=== PATIENT | male | born 1945 | race Caucasian/White ===

== ENCOUNTER 2017-09-16 12:41 | Inpatient (IN) | payer MEDICAID ==
--- NOTE | 2017-09-16 14:28 | ED Physician Chart ---
ED Chief Complaint/HPI - Patient Information Date Seen:: 09/16/17 Time Seen:: 13:00 Chief Complaint:: Dizziness History of Present Illness:: onset x 3 days of intermittent vertigo,, N/V/D, hematochezia, and melena; no report of trauma, LOC, H/As, S/T, neck pain, C/P, SOB, Abd. Pain, A/C, fever, chills, hematemesis, or urinary s/s Allergies:: Allergies Allergy/AdvReac Type Severity Reaction Status Date / Time Penicillins Allergy Verified 09/16/17 13:04 Vitals:: Vital Signs - 8 hr 09/16/17 13:04 Temp 98.2 F HR 70 RR 17 BP 99/60 O2 Sat % 96 Historian:: Patient, EMS Review:: Nurse's Note Reviewed, Old Chart Reviewed, EMS run form Reviewed ED Review of Systems - Review of Systems General/Constitutional: No fever, No chills, No weight loss, No weakness, No diaphoresis, No edema, No loss of appetite Skin: No skin lesions, No rash, No bruising Head: No headache, No light-headedness Eyes: No loss of vision, No pain, No diplopia ENT: No earache, No nasal drainage, No sore throat, No tinnitus Neck: No neck pain, No swelling, No thyromegaly, No stiffness, No mass noted Cardio Vascular: No chest pain, No palpitations, No PND, No orthopnea, No edema Pulmonary: No SOB, No cough, No sputum, No wheezing GI: No nausea, No vomiting, No diarrhea, No pain, No melena, No hematochezia, No constipation, No hematemesis G/U: No dysuria, No frequency, No hematuria, No nacturia Musculoskeletal: No bone or joint pain, No back pain, No muscle pain Endocrine: No polyuria, No polydipsia Psychiatric: Prior psych history, Depression, Anxiety, No suicidal ideation, No homicidal ideation, No auditory hallucination, No visual hallucination Hematopoietic: No bruising, No lymphadenopathy Allergic/Immuno: No urticaria, No angioedema Neurological: Syncope, No focal symptoms, Weakness, No paresthesia, Headache, Seizure, Dizziness, Confusion, Vertigo ED Past Medical History - Past Medical History Obtainable: Yes Past Medical History: HTN, DM, CAD, CHF, CVA/TIA, Dyslipidemia, PUD/GERD, ESRD, Seizures, Dementia, Other (Encephalopathy) Family History: Diabetes Melitus, HTN Social History: Non Smoker, No Alcohol, No Drug Use, Single, Care Facility Surgical History: None Psychiatricy History: Depression, Dementia Medication: Reviewed ED Physical Exam - Physical Examination General/Constitutional: Awake, Well-developed, well-nourished, Alert, No distress, GCS 15, Non-toxic appearing, Ambulatory Head: Atraumatic Eyes: Lids, conjuctiva normal, PERRL, EOMI Skin: Nl inspection, No rash, No skin lesions, No ecchymosis, Well hydrated, No lymphadenopathy ENMT: External ears, nose nl, TM canals nl, Nasal exam nl, Lips, teeth, gums nl , Oropharynx nl, Tonsils nl Neck: Nontender, Full ROM w/o pain, No JVD, No nuchal rigidity, No bruit, No mass, No stridor Respiratory: Nl effort/Exclusion, Clear to Auscultation, No Wheeze/Rhonchi/Rales Cardio Vascular: RRR, No murmur, gallop, rubs, NL S1 S2, Carotid/Femoral/Distal pulses equal bilaterally GI: No tenderness/rebounding/guarding, No organomegaly, No hernia, Normal BS's, Nondistended, No mass/bruits, No McBurney tenderness Other GI comments:: Stool is + OB : No CVA tenderness Extremities: No tenderness or effusion, Full ROM, normal strength in all extremities, No edema, Normal digits & nails Neuro/Psych: DTR's symmetric, Normal sensory exam, Normal motor strength, Judgement/insight normal, Mood normal, Normal gait, No focal deficits Other Neuro/Psych comments:: Disoriented and Confused Misc: Normal back, No paraspinal tenderness ED Labs/Radiology/EKG Results - EKG Interpretations EKG Time:: 14:47 Rate & Rhythm: 58; SB Comments:: T-Wave Inversions in V4, V5, and V6 ED Septic Shock - . Is Septic Shock (SBP<90, OR Lactate>4 mmol\L) present?: No - <6hrs of presentation: Vital Signs: Vital Signs - 8 hr 09/16/ 13:04 Temp 98.2 F HR 70 RR 17 BP 99/60 O2 Sat % 96 ED Reassessment (Disposition) - Reassessment Reassessment Condition:: Improved - Diagnosis Diagnosis:: Dx: Myocardial Ischemia; Cardiac Arrythmias; Sinus Bradycardia; Dizziness; Syncope; Vertigo; Weakness; GI Bleed - Aftercare/Follow up Instructions Aftercare/Follow-Up Instructions:: Counseled pt regarding lab results/diagnosis & need follow up, Counseled pt & family regarding lab results/diagnosis & need follow up - Patient Disposition Discharge/Transfer:: Acute Care w/in this hosp Accepting Physician:: Dr. Avendano Time Called:: 1430 Time Responded:: 14:30 Admitted to:: Telemetry Spoke to:: Dr. Avendano Admitting Medical Physician:: Dr. Avendano Condition at Disposition:: Stable, Improved
[2017-09-16] MEDS ORDERED: Sodium Chloride 0.9% 1,000 ML IV ONE (14:31)
--- NOTE | 2017-09-16 14:52 | Diagnostic Imaging Report ---
CHEST X-RAY: AP view INDICATION: pain COMPARISON: None FINDINGS: Mild chronic lung changes are seen with left basal subsegmental atelectasis versus scarring. There is no focal consolidation or pleural effusions The heart is normal in size. There is mild tortuosity of the aorta. Degenerative changes of the spine are noted. IMPRESSION: Left basal subsegmental atelectasis versus scarring. No focal consolidation identified. Mildly tortuous aorta.
[2017-09-16 15:02] LABS: % BASOPHILS 0.7 % (0.0-2.0); % EOSINOPHILS 1.1 % (0.0-5.0); % LYMPHOCYTES 17.9 % (20.0-50.0); % MONOCYTES 6.4 % (2.0-10.0); % NEUTROPHILS 73.9 % (40.0-80.0); BASOPHILE ABSOLUTE 0.1 Th/cumm (0-0.2); EOSINOPHILE ABSOLUTE 0.1 Th/cmm (0.1-0.4); HEMATOCRIT 35.9 % (41.0-60); HEMOGLOBIN 12.2 gm/dL (12-16); LYMPHOCYTE ABSOLUTE 1.3 Th/cmm (1.5-3.0); MEAN CELL VOLUME 89.9 fl (80-99); MEAN CORPUSCULAR HEMOGLOBIN 30.4 pg (27.0-31.0); MEAN CORPUSCULAR HGB CONC 33.9 pg (28.0-36.0); MEAN PLATELET VOLUME 7.5 fl; MONOCYTE ABSOLUTE 0.5 Th/cmm (0.3-1.0); NEUTROPHILE ABSOLUTE 5.2 Th/cmm (1.8-8.0); PLATELET COUNT 156 Th/cmm (150-400); RED BLOOD COUNT 3.99 Mil/cmm (3.80-5.80); WHITE BLOOD COUNT 7.2 Th/cmm (4.8-10.8)
[2017-09-16 15:09] LABS: INR 1.12 (0.5-1.4); PROTHROMBIN TIME (TEST) 11.7 SECONDS (9.5-11.5)
[2017-09-16 15:18] LABS: ALB/GLOB RATIO 1.4 (1.0-1.8); ALBUMIN 3.6 gm/dL (4.2-5.5); ALKALINE PHOSPHATASE 53 U/L (34-104); ANION GAP 7.6 (7.0-16.0); BILIRUBIN,TOTAL 0.5 mg/dL (0.3-1.0); BUN - UREA NITROGEN 24 mg/dL (7-25); CALCIUM SERUM 8.9 mg/dL (8.6-10.3); CARBON DIOXIDE 29.3 mEq/L (21.0-31.0); CHLORIDE 103 mEq/L (98-107); CHOLESTEROL 107 mg/dL (<200); CREATININE - SERUM 0.9 mg/dL (0.7-1.3); CREATININE KINASE 31 U/L (30-223); GFR AFRICAN-AMERICAN > 60.0 ml/min (>90); GFR NON AFRICAN-AMERICAN > 60.0 ml/min; GLUCOSE 96 mg/dL (70-105); HDL -HIGH DENSITY LIPOPROTEIN 29 mg/dL (23-92); POTASSIUM SERUM 3.9 mEq/L (3.5-5.1); SGOT 13 U/L (13-39); SGPT/ALT 10 U/L (7-52); SODIUM SERUM 136 mEq/L (136-145); TOTAL PROTEIN,SERUM 6.2 gm/dL (6.0-8.3); TRIGLYCERIDES 99 mg/dL (<150)
[2017-09-16 15:24] LABS: AMYLASE SERUM 78 U/L (29-103); LIPASE 53 U/L (11-82)
[2017-09-16 21:37] VITALS: BP 129/64
[2017-09-16] MEDS: Sodium Chloride 0.9% 1,000 ML IV SCH (23:00)
[2017-09-17] MEDS: Sodium Chloride 0.9% 1,000 ML IV SCH (06:17)
[2017-09-17 07:23] LABS: % BASOPHILS 0.1 % (0.0-2.0); % EOSINOPHILS 2.3 % (0.0-5.0); % LYMPHOCYTES 22.5 % (20.0-50.0); % MONOCYTES 6.6 % (2.0-10.0); % NEUTROPHILS 68.5 % (40.0-80.0); EOSINOPHILE ABSOLUTE 0.1 Th/cmm (0.1-0.4); HEMOGLOBIN 10.1 gm/dL (12-16); LYMPHOCYTE ABSOLUTE 1.3 Th/cmm (1.5-3.0); MEAN CORPUSCULAR HEMOGLOBIN 30.7 pg (27.0-31.0); MEAN CORPUSCULAR HGB CONC 34.5 pg (28.0-36.0); MEAN PLATELET VOLUME 8.2 fl; MONOCYTE ABSOLUTE 0.4 Th/cmm (0.3-1.0); PLATELET COUNT 144 Th/cmm (150-400); RED BLOOD COUNT 3.27 Mil/cmm (3.80-5.80); RED CELL DISTRIBUTION WIDTH 12.8 % (11.5-20.0); WHITE BLOOD COUNT 5.8 Th/cmm (4.8-10.8)
[2017-09-17 07:29] LABS: HEMATOCRIT 29.1 % (41.0-60)
[2017-09-17 07:32] LABS: ANION GAP 8.4 (7.0-16.0); BUN - UREA NITROGEN 20 mg/dL (7-25); CALCIUM SERUM 8.5 mg/dL (8.6-10.3); CARBON DIOXIDE 25.4 mEq/L (21.0-31.0); CHLORIDE 111 mEq/L (98-107); CHOLESTEROL 94 mg/dL (<200); CREATININE - SERUM 0.7 mg/dL (0.7-1.3); GFR AFRICAN-AMERICAN > 60.0 ml/min (>90); GFR NON AFRICAN-AMERICAN > 60.0 ml/min; GLUCOSE 82 mg/dL (70-105); HDL -HIGH DENSITY LIPOPROTEIN 23 mg/dL (23-92); POTASSIUM SERUM 3.8 mEq/L (3.5-5.1); SODIUM SERUM 141 mEq/L (136-145); TRIGLYCERIDES 112 mg/dL (<150)
[2017-09-17] MEDS: D5-0.9%NS 1,000 ML IV SCH (09:50)
[2017-09-17] MEDS ORDERED: Diatrizoate Meglumine/Diatri 30 mL Sol PO ONE (12:14)
[2017-09-17 16:18] LABS: % BASOPHILS 0.4 % (0.0-2.0); % EOSINOPHILS 1.6 % (0.0-5.0); % LYMPHOCYTES 20.4 % (20.0-50.0); % MONOCYTES 8.6 % (2.0-10.0); EOSINOPHILE ABSOLUTE 0.1 Th/cmm (0.1-0.4); HEMATOCRIT 28.2 % (41.0-60); HEMOGLOBIN 9.4 gm/dL (12-16); LYMPHOCYTE ABSOLUTE 1.1 Th/cmm (1.5-3.0); MEAN CELL VOLUME 90.6 fl (80-99); MEAN CORPUSCULAR HEMOGLOBIN 30.3 pg (27.0-31.0); MEAN CORPUSCULAR HGB CONC 33.4 pg (28.0-36.0); MEAN PLATELET VOLUME 7.4 fl; MONOCYTE ABSOLUTE 0.5 Th/cmm (0.3-1.0); NEUTROPHILE ABSOLUTE 3.9 Th/cmm (1.8-8.0); PLATELET COUNT 144 Th/cmm (150-400); RED BLOOD COUNT 3.11 Mil/cmm (3.80-5.80); RED CELL DISTRIBUTION WIDTH 12.7 % (11.5-20.0); WHITE BLOOD COUNT 5.6 Th/cmm (4.8-10.8)
[2017-09-17] MEDS ORDERED: Maalox 30 mL Cup PO PRN (16:43)
[2017-09-17] MEDS ORDERED: Fleet Enema 135 mL RC PRN (16:43)
[2017-09-17] MEDS ORDERED: Albuterol/Ipratropium Neb 3 ML AERS HHN PRN (16:43)
[2017-09-17] MEDS: Magnesium Hydroxide (MOM) 30 mL UDC PO SCH (17:10)
[2017-09-17] MEDS ORDERED: Non-Formulary Item 1 EA (Melatonin [Melatonin] 6 MG) PO SCH (21:00)
[2017-09-18 00:58] LABS: URINE MICROSCOPIC INDICATED? YES; URINE SOURCE CLEAN C
[2017-09-18 01:00] LABS: URINE BILIRUBIN NEGATIVE (NEGATIVE); URINE BLOOD NEGATIVE (NEGATIVE); URINE CLARITY CLEAR (CLEAR); URINE COLOR YELLOW; URINE GLUCOSE (UA) NEGATIVE (NEGATIVE); URINE KETONE NEGATIVE (NEGATIVE); URINE LEUKOCYTE ESTERASE NEGATIVE (NEGATIVE); URINE NITRATE NEGATIVE (NEGATIVE); URINE PROTEIN NEGATIVE (NEGATIVE); URINE UROBILINOGEN 0.2 E.U./dL (0.2 - 1.0)
[2017-09-18 01:01] LABS: URINE BACTERIA FEW /hpf (NONE SEEN); URINE EPITHELIAL CELLS NONE SEEN /lpf (FEW); URINE RBC 0-2 /hpf (0-5); URINE WBC 0-2 /hpf (0-5)
--- NOTE | 2017-09-18 02:13 | Consultation ---
DATE OF CONSULTATION: 09/17/2017 INPATIENT GASTROINTESTINAL CONSULTATION CONSULTING PHYSICIAN: Dr. Avendano. REASON FOR CONSULTATION: Hematochezia. HISTORY OF PRESENT ILLNESS: The patient is a 71-year-old male with past medical history of hypertension and previous stroke, who is admitted to the hospital with one day of bright red blood per rectum. The patient notes that he started noticing blood in his stool yesterday morning minutes. He has had several bowel movements since then with blood mixed with his stool. This has never happened before. He has never before had colonoscopy or evaluation for rectal bleeding. At the current time, the patient has not had a bowel movement today and his last bloody stool was yesterday night. PAST MEDICAL HISTORY: Previous hypertension, previous stroke. The patient reports he is maintained on blood thinner, although he cannot remember what type, coronary artery disease, congestive heart failure, peptic ulcer disease, seizures, dementia. PAST SURGICAL HISTORY: The patient denies any abdominal surgeries. FAMILY HISTORY: Noncontributory. SOCIAL HISTORY: The patient is a nonsmoker, does not drink alcohol. REVIEW OF SYSTEMS: A 12-point review of systems was performed with the patient and is negative other than the pertinent positives mentioned in the history of present illness. CURRENT MEDICATIONS: Bisacodyl. His home medication list is reviewed and it does not show any Eliquis or Plavix listed, but he does take aspirin. PHYSICAL EXAMINATION: VITAL SIGNS: Blood pressure is 114/66, pulse 75 beats per minute, temperature 98.2, oxygen 96%. GENERAL: The patient is alert and oriented x 3. He is lying 30 degrees in bed. No apparent distress. HEAD,EYES, EARS, NOSE AND THROAT: Normocephalic, atraumatic appearing head. Pupils are equal and reactive to light. Extraocular muscles are intact. Moist mucous membranes. NECK: Supple. No JVD or thyromegaly. LUNGS: Clear to auscultation bilaterally. CARDIOVASCULAR: Obese: Soft, nontender to palpation. No guarding or rebound. No distention. EXTREMITIES: Nonpitting edema is noted bilaterally. Pulses are not present. SKIN: No obvious jaundice or cyanosis. LABORATORY DATA: White blood cell count 5.8, hemoglobin 10.1. Platelet count is 144. Sodium 141, BUN 20, creatinine 0.7. TSH 1.3. INR 1.12. No abdominal imaging has been performed. IMPRESSION: This is a 71-year-old male who reports one day of bright red blood per rectum, several episodes and now admitted for further evaluation. 1. Hematochezia. 2. History of stroke. 3. History of coronary artery disease as per ER documentation. 4. History of congestive heart failure as per ER documentation. DISCUSSION: As the patient has been having bright red blood per rectum and has never had a colonoscopy, we will plan to do this tomorrow morning for further evaluation of his rectal bleeding. Differential diagnosis includes diverticulosis, hemorrhoids, malignancy or colitis. Additionally, we will get imaging to look at the colon and look for any evidence of inflammation at this time. RECOMMENDATIONS: 1. We will plan for colonoscopy tomorrow morning with bowel preparation tonight. 2. We will get abdominal CT with p.o. contrast today before his bowel prep. 3. We will get a CBC later today to ensure stability. 4. N.p.o. at midnight. Further recommendations to follow the endoscopy. Thank you for allowing me to participate in his care. Please call if any further questions. JOB# [id number]
--- NOTE | 2017-09-18 03:42 | History & Physical ---
ADMIT DATE: 09/16/2017 The patient was admitted because of failure to thrive, dehydration and history of myocardial ischemia, cardiac arrhythmia, sinus bradycardia and dizziness and syncope and status post possible GI bleeding. HISTORY OF PRESENT ILLNESS: This is a patient who was brought to the Emergency Room with a history that he has been having increasing weakness and also history of depression, history of dementia and the patient was seen, had labs and workup done, showed T-wave inversion in V4, V5, V6 and he was seen as having sinus bradycardia and the patient has a history of syncopal episodes. REVIEW OF SYSTEMS: Other than what is mentioned above and negative. PHYSICAL EXAMINATION: HEAD: Normal. ENT: Normal. NECK: Supple, nontender. LUNGS: Bilaterally clear. CARDIOVASCULAR SYSTEM: S1, S2 heard. ABDOMEN: Soft. The patient complains of dizziness. PAST MEDICAL HISTORY: Included a history of hypertension, diabetes, coronary artery disease, history of hyperlipidemia, seizures and dementia. DIAGNOSES: Dizziness, syncopal episode, myocardial ischemia, cardiac arrhythmia, vertigo, weakness, possible GI bleeding and history of hypertension, history of diabetes and history of encephalopathy. PLAN: The patient is being admitted and I will go ahead and do a neuro workup with a cardiac workup. I will follow the patient. JOB# [id number]
[2017-09-18] MEDS: D5-0.9%NS 1,000 ML IV SCH ×2 (04:48→17:20)
[2017-09-18 06:03] LABS: INR 1.12 (0.5-1.4); PROTHROMBIN TIME (TEST) 11.7 SECONDS (9.5-11.5)
[2017-09-18] MEDS ORDERED: Lidocaine 2% Gel 5 mL TP ONE (08:30)
[2017-09-18] MEDS ORDERED: Propofol 10 mg/mL 20mL Vial **SURGERY USE ONLY IV ONE (08:30)
--- NOTE | 2017-09-18 08:57 | Diagnostic Imaging Report ---
CT abdomen and pelvis without intravenous contrast Indication: Hematochezia , colitis Comparison: None, Technique: Axial images were obtained from the lung bases to the bilateral proximal femurs without IV contrast. Oral contrast was administered. Coronal reconstructions were made. total DLP: 798, [id number] FINDINGS: Hypoventilatory and atelectatic changes of the lungs are noted. Evaluation of the solid organs is limited due to lack of IV contrast. No evidence of focal hepatic, splenic, pancreatic, or adrenal lesions. Nonspecific bilateral perinephric inflammatory changes are noted. No evidence of hydronephrosis or focal renal lesions. There is moderate stool is seen along the distal colon. Diverticulosis is noted without diverticulitis. No focal bowel wall thickening. No appendicitis. Small fat-containing right inguinal hernia is noted. There is mild urinary bladder wall thickening. Prominent prostate gland is noted measuring 5.1 x 3.8 cm. Degenerative changes of the spine are noted. IMPRESSION: Moderate stool within the distal colon. No evidence of bowel obstruction Diverticulosis without evidence of diverticulitis. Prominent prostate gland. Mild urinary bladder wall thickening. Please correlate for consider possible inflammatory process. Small fat-containing right inguinal hernia.
[2017-09-18] MEDS: Polyvinyl Alcohol Ophth Soln 15 mL Bottle EACH EYE SCH ×3 (10:19→17:18)
[2017-09-18] MEDS: Aspirin 81mg Chewable Tab PO SCH (10:21)
[2017-09-18] MEDS: Multivitamin w/ Minerals Tab PO SCH (10:22)
--- NOTE | 2017-09-18 12:41 | Operative Report ---
DATE OF SURGERY: 09/18/2017 INPATIENT COLONOSCOPY REPORT PROCEDURE PERFORMED: Colonoscopy with polypectomy. ENDOSCOPIST: Dusty Hernandez M.D. PREOPERATIVE DIAGNOSIS: Hematochezia. POSTOPERATIVE DIAGNOSIS: Diverticulosis, colonic polyp and hemorrhoids. INDICATIONS: The patient is a 71-year-old male who came into the hospital with one-day of bright red blood per rectum and anemia. He is here for colonoscopy. CONSENT: Informed consent was obtained from the patient. The risks and benefits of the procedure were discussed including but not limited to infection, bleeding, perforation, need for surgery, cardiopulmonary complications, missed pathology and . The patient indicated understanding of these risks and risk for the procedure and signed a consent form. ANESTHESIA: The procedure was performed in the main operating room under the care of an anesthesiologist. PROCEDURE IN DETAIL: The patient was hooked up to the appropriate monitoring devices and after the initiation of general anesthesia, he was placed in the left lateral decubitus position, rectal exam was then performed and a colonoscope was introduced into the anus and guided under direct visualization to the level of the cecum, which was confirmed by the presence of the appendiceal orifice and the IC valve, which were photographed. Scope was then slowly and carefully withdrawn, being sure to examine the entire mucosa in a careful and systematic fashion. Retroflexion was performed in the rectum. Scope straightened and withdrawn from the body. FINDINGS: [place] bowel prep score was 3 in all segments of the colon. There was severe diverticulosis throughout the colon, which was nonbleeding at the time of the scope. Diverticula were mostly linear following the path of the ____ and there were many stool balls within several of the diverticula. There was no mass lesion found on this exam. One small 4 mm polyp was found in the rectum and removed completely with cold biopsy forceps. On retroflex view in the rectum, there were small to moderate sized internal hemorrhoids. No other lesions were found. IMPRESSION: 1. Severe diverticulosis of the entire colon likely the source of the patient's bleeding. 2. Rectal polyp, status post removal. 3. Small to moderate internal hemorrhoids. RECOMMENDATIONS: 1. We will follow up colon polyp biopsy result. The patient's next colonoscopy is due in 5 years' time. 2. I recommended the patient try to keep a very high fiber diet to help with his diverticulosis and prevent further bleeding. If he does have further bleeding, then we can consider either repeat colonoscopy versus such entities as IR embolization if he has several episodes of recurrent bleeding, he may even consider surgery. 3. We will start the patient on diet and advance as tolerated. 4. Continue to trend hemoglobin and transfuse to keep hemoglobin of 7. Thank you for allowing me to participate in this patient's care. Please call with any further questions. JOB# [id number]
--- NOTE | 2017-09-18 13:28 | Internal Medicine Prog Note ---
Internal Medicine Subjective - Subjective Service Date: 09/18/17 Patient seen and examined:: with staff Patient is:: awake, verbal Per staff patient has:: tolerating meds Internal Medicine Objective - Results Result Diagrams: 09/17/17 16:00 09/17/17 06:21 Recent Labs: Laboratory Last Values WBC 5.6 Th/cmm (4.8-10.8) 09/17/17 16:00 RBC 3.11 Mil/cmm (3.80-5.80) L 09/17/17 16:00 Hgb 9.4 gm/dL (12-16) L 09/17/17 16:00 Hct 28.2 % (41.0-60) L 09/17/17 16:00 MCV 90.6 fl (80-99) 09/17/17 16:00 MCH 30.3 pg (27.0-31.0) 09/17/17 16:00 MCHC Differential 33.4 pg (28.0-36.0) 09/17/17 16:00 RDW 12.7 % (11.5-20.0) 09/17/17 16:00 Plt Count 144 Th/cmm (150-400) L 09/17/17 16:00 MPV 7.4 fl 09/17/17 16:00 Neutrophils % 69.0 % (40.0-80.0) 09/17/17 16:00 Lymphocytes % 20.4 % (20.0-50.0) 09/17/17 16:00 Monocytes % 8.6 % (2.0-10.0) 09/17/17 16:00 Eosinophils % 1.6 % (0.0-5.0) 09/17/17 16:00 Basophils % 0.4 % (0.0-2.0) 09/17/17 16:00 PT 11.7 SECONDS (9.5-11.5) H 09/18/17 05:16 INR 1.12 (0.5-1.4) 09/18/17 05:16 Sodium 141 mEq/L (136-145) 09/17/17 06:21 Potassium 3.8 mEq/L (3.5-5.1) 09/17/17 06:21 Chloride 111 mEq/L (98-107) H 09/17/17 06:21 Carbon Dioxide 25.4 mEq/L (21.0-31.0) 09/17/17 06:21 Anion Gap 8.4 (7.0-16.0) 09/17/17 06:21 BUN 20 mg/dL (7-25) 09/17/17 06:21 Creatinine 0.7 mg/dL (0.7-1.3) 09/17/17 06:21 Est GFR ( Amer) > 60.0 ml/min (>90) 09/17/17 06:21 Est GFR (Non-Af Amer) > 60.0 ml/min 09/17/17 06:21 BUN/Creatinine Ratio 28.6 09/17/17 06:21 Glucose 82 mg/dL (70-105) 09/17/17 06:21 POC Glucose 106 MG/DL (70 - 105) H 09/18/17 07:03 Calcium 8.5 mg/dL (8.6-10.3) L 09/17/17 06:21 Total Bilirubin 0.5 mg/dL (0.3-1.0) 09/16/17 14:50 AST 13 U/L (13-39) 09/16/17 14:50 ALT 10 U/L (7-52) 09/16/17 14:50 Alkaline Phosphatase 53 U/L (34-104) 09/16/17 14:50 Creatine Kinase 31 U/L (30-223) 09/16/17 14:50 Troponin I 0.01 ng/mL (0.01-0.05) 09/16/17 14:50 B-Natriuretic Peptide 11.2 pg/mL (5.0-100.0) 09/16/17 14:50 Total Protein 6.2 gm/dL (6.0-8.3) 09/16/17 14:50 Albumin 3.6 gm/dL (4.2-5.5) L 09/16/17 14:50 Globulin 2.6 gm/dL 09/16/17 14:50 Albumin/Globulin Ratio 1.4 (1.0-1.8) 09/16/17 14:50 Triglycerides 112 mg/dL (<150) 09/17/17 06:21 Cholesterol 94 mg/dL (<200) 09/17/17 06:21 LDL Cholesterol Direct 59 mg/dL (75-193) L 09/17/17 06:21 HDL Cholesterol 23 mg/dL (23-92) 09/17/17 06:21 Amylase 78 U/L (29-103) 09/16/17 14:50 Lipase 53 U/L (11-82) 09/16/17 14:50 TSH 1.32 uIU/ml (0.34-5.60) 09/17/17 06:21 Urine Source CLEAN C 09/18/17 00:20 Urine Color YELLOW 09/18/17 00:20 Urine Clarity CLEAR (CLEAR) 09/18/17 00:20 Urine pH 8.0 (4.6 - 8.0) 09/18/17 00:20 Ur Specific [place] 1.015 (1.005-1.030) 09/18/17 00:20 Urine Protein NEGATIVE mg/dL (NEGATIVE) 09/18/17 00:20 Urine Glucose (UA) NEGATIVE mg/dL (NEGATIVE) 09/18/17 00:20 Urine Ketones NEGATIVE mg/dL (NEGATIVE) 09/18/17 00:20 Urine Blood NEGATIVE (NEGATIVE) 09/18/17 00:20 Urine Nitrate NEGATIVE (NEGATIVE) 09/18/17 00:20 Urine Bilirubin NEGATIVE (NEGATIVE) 09/18/17 00:20 Urine Urobilinogen 0.2 E.U./dL (0.2 - 1.0) 09/18/17 00:20 Ur Leukocyte Esterase NEGATIVE (NEGATIVE) 09/18/17 00:20 Urine RBC 0-2 /hpf (0-5) H 09/18/17 00:20 Urine WBC 0-2 /hpf (0-5) 09/18/17 00:20 Ur Epithelial Cells NONE SEEN /lpf (FEW) 09/18/17 00:20 Urine Bacteria FEW /hpf (NONE SEEN) 09/18/17 00:20 Blood Type B POSITIVE 09/16/17 21:49 Antibody Screen NEGATIVE 09/16/17 21:49 - Physical Exam Vitals and I&O: Vital Signs Temp 97.5 F 09/18/17 07:12 Pulse 57 09/18/17 10:20 Resp 20 09/18/17 08:46 BP 120/52 09/18/17 10:20 Pulse Ox 96 09/18/17 08:46 Intake & Output 09/17/17 09/18/17 09/18/17 18:59 06:59 18:59 Intake Total 1900 Balance 1900 Weight (lbs) 193 lb 8 oz 193 lb 8 oz Intake: Intake, IV Amount 1000 D5-0.9%Ns 1,000 ml @ 125 1000 mls/hr IV .Q8H [facility] Rx#: [id number] Oral 900 Other: # Voids 3 # Bowel Movements 4 Stool Characteristics Bloody Bloody Bloody Weight Source Bedscale Bedscale Active Medications: Current Medications Acetaminophen (Tylenol) 650 mg PO DAILY [facility] Stop: 11/17/17 08:59 Last Admin: 09/18/17 10:27 Dose: Not Given Acetaminophen (Tylenol) 650 mg PO Q4HR PRN PRN Reason: PAIN OR TEMP >101 Stop: 11/16/17 16:42 Al Hydrox/Mg Hydrox/Simethicone (Maalox) 30 ml PO Q6H PRN PRN Reason: Heartburn Albuterol/Ipratropium (Duoneb Neb) 3 ml HHN Q6HR PRN PRN Reason: SOB/WHEEZING Stop: 11/16/17 16:42 Amlodipine Besylate (Norvasc) 7.5 mg PO DAILY [facility] Stop: 11/17/17 08:59 Last Admin: 09/18/17 10:20 Dose: 7.5 mg Artificial Tears (Artificial Tears Ophth Soln) 1 drop EACH EYE BID [facility] Stop: 11/16/17 16:59 Last Admin: 09/18/17 10:19 Dose: 1 drop Aspirin (Aspirin Chewable) 81 mg PO DAILY [facility] Stop: 11/17/17 08:59 Last Admin: 09/18/17 10:21 Dose: 81 mg Bacitracin (Baciquent) 0 appl TP DAILY [facility] Stop: 11/17/17 08:59 Last Admin: 09/18/17 10:18 Dose: 1 appl Bisacodyl (Dulcolax 10 Mg Supp) 10 mg RC DAILY PRN PRN Reason: IF MOM INEFFECTIVE Stop: 11/16/17 16:42 Docusate Sodium (Colace) 100 mg PO DAILY [facility] Stop: 11/17/17 08:59 Last Admin: 09/18/17 10:34 Dose: Not Given Dextrose/Sodium Chloride (D5-0.9%Ns) 1,000 mls @ 125 mls/hr IV .Q8H [facility] Stop: 11/16/17 09:44 Last Admin: 09/18/17 04:48 Dose: 125 mls/hr Ibuprofen (Motrin) 600 mg PO Q8H PRN PRN Reason: PAIN Stop: 11/16/17 16:42 Magnesium Hydroxide (Milk Of Magnesia) 30 ml PO Q72H [facility] Stop: 11/16/17 16:44 Last Admin: 09/17/17 17:10 Dose: Not Given Senna (Senna) 8.6 mg PO HS [facility] Stop: 11/16/17 20:59 Last Admin: 09/17/17 21:05 Dose: 8.6 mg Simvastatin (Zocor) 20 mg PO [facility] Stop: 11/16/17 20:59 Last Admin: 09/17/17 21:05 Dose: 20 mg Sodium Phosphate (Fleet Enema) 135 ml RC Q48H PRN PRN Reason: IF DULCOLAX INEFFECTIVE Stop: 11/16/17 16:42 Tramadol HCl (Ultram) 50 mg PO Q6H PRN PRN Reason: PAIN Stop: 11/16/17 16:42 Trazodone HCl (Desyrel) 75 mg PO [facility] PRN Reason: Protocol Stop: 11/16/17 20:59 Valsartan (Diovan) 80 mg PO [facility] Stop: 11/16/17 20:59 Last Admin: 09/17/17 21:05 Dose: 80 mg Vitamin D (Vitamin D) 1,000 iu PO DAILY [facility] Stop: 11/17/17 08:59 Last Admin: 09/18/17 10:26 Dose: 1,000 iu General: alert HEENT: NC/AT, PERRLA Neck: Supple Cardiovascular: RRR, Normal S1, Normal S2, without murmur Abdomen: soft, non-distended, positive bowel sound Internal Medicine Assmt/Plan - Assessment Assessment: dizziness syncopal episode mi cardiac arrythmia vertigo weakness possible gi bleed htn hx dm hx encephalopathy - Plan Plan: neuro and cardiology follow up telemetry monitoring follow up labs in am continue current plan of care Nutritional Asmnt/Malnutr-PDOC - Dietary Evaluation Malnutrition Findings (Please click <Entered> for more info): Nutritional Asmnt/Malnutrition Start: 09/17/17 17: 12 Text: Status: Complete Freq: Document 09/17/17 17:12 LCHENG (Rec: 09/17/17 17:20 [email or web address]) Nutritional Asmnt/Malnutrition Patient General Information Nutritional Screening High Risk Consult Diagnosis GI bleed Pertinent Medical Hx/Surgical Hx HTN, CAD, DM, CHF, CVA/TIA, dyslipidemia, PUD/GERD, ESRD, seizrue, dementia, encephalopathy, depression Subjective Information Consult received for low skin audra score. Pt seen busy with nurses, not appropriate to interview at time of visit. No diet order at this time. ordered clear liquid start at dinner. Per nurse note, pt had colonoscopy ordered. pt had blood in stool noted. Current Diet Order/ Nutrition Support clear liquid Pertinent Medications D5-0.9%ns, colace, senna, vit D Pertinent Labs 09/17 cl 111, ca 8.5 Nutritional Hx/Data Height 5 ft 8 in Height (Calculated Centimeters) 172.7 Current Weight (lbs) 193 lb Weight (Calculated Kilograms) 87.5 Weight (Calculated Grams) 10906.3 [place] Body Weight 154 Body Mass Index (BMI) 29.3 Weight Status Overweight GI Symptoms Skin Integrity/Comment: reddened to right buttocks, sacrum, coccyx, pressure area to left buttocks Current %PO Negligible < 25% Estimated Nutritional Goals BEE in Kcals: Adj wt of IBW Calories/Kcals/Kg 25-30 Kcals Calculated 4512-4241 Protein: Adj wt of IBW Protein g/k-1.2 Protein Calculated 74-88 Fluid: ml 1850-2220ml (1ml/kcal) Nutritional Problem 1. Problem Problem altered GI function Etiology GI bleed Signs/Symptoms: pt on clear liquid diet and need for colonoscopy Intervention/Recommendation Comments 1. Continue with current diet as ordered. Recommend Boost Breeze BID to increase nutrition intake. 2. Monitor PO intake, wt, labs and skin integrity 3. F/U as high risk in 2-3 days, 09/19-09/20 Expected Outcomes/Goals Expected Outcomes/Goals 1. PO intake to meet at least 75% of nutritional needs. 2. Wt stability, skin to remain intact, labs to approach WNL.
--- NOTE | 2017-09-18 23:42 | Consultation ---
DATE OF CONSULTATION: 09/18/2017 UROLOGY CONSULTATION HISTORY OF PRESENT ILLNESS: The patient seen for abnormal CT scan finding of thickened bladder. The patient was admitted for GI bleed and this was an incidental finding. On close questioning, he denies history of dysuria, hematuria, frequency, incontinence or having infections in the urinary tract. Denies history of prostate biopsy or surgery and also denies history of prostate cancer. No urological issues with the kidneys either. PAST MEDICAL HISTORY: Positive for hypertension and diabetes. 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 He gives a history of dyslipidemia and seizure disorder as well. He has renal failure and dementia. SOCIAL HISTORY: Resident of assisted living or fpc. Denies alcohol, tobacco or drug use. PAST SURGICAL HISTORY: Negative. PSYCHIATRIC HISTORY: Positive for dementia and maybe depression as well. PREADMISSION MEDICATIONS: Include inhalers, amlodipine, aspirin, Dulcolax, clonidine on a p.r.n. basis, melatonin, vitamins, Mylanta, pravastatin, Senna, tramadol, trazodone, Diovan and vitamin D. ALLERGIES: PENICILLIN. REVIEW OF SYSTEMS: The patient was admitted for non-urologic problems. No chest pain, coughing or shortness of breath. No fever, chills or weight loss. Denied any headache, but has a history of seizures, none recently. Denied nausea, vomiting, diarrhea or abdominal pain. Denied joint pain or skin rashes. PHYSICAL EXAMINATION: GENERAL: He is awake, surprisingly alert. He answers most questions appropriately. VITAL SIGNS: His temperature is 97.5, heart rate 57 and blood pressure 120/52 last recorded. HEAD AND NECK: Normocephalic. Trachea is central. Pupils equal and reactive. No jaundice. Left eye seems to be partially closed most of the time. CHEST: Symmetrical. LUNGS: Clear. No rales or rhonchi. HEART: Sounds normal, in sinus rhythm, no murmur. ABDOMEN: Soft and obese, but nontender and nondistended. No organomegaly, mass, or hernia. No scars. Flanks nontender. GENITALIA: Normal male. No scrotal masses. Testes descended and normal. Penis, uncircumcised and normal. He is urinating in the urinal by the bedside with good control. RECTAL: Sphincter tone slightly reduced. Prostate is not enlarged, about 20 grams, smooth, benign and nontender. Soft stool in the rectum. EXTREMITIES: No edema or lymphadenopathy. NEUROLOGIC: Right hemiparesis to hemiplegia. LABORATORY DATA: White count 5.6, hemoglobin 9.4 and platelets 144. PT/PTT are normal. Electrolytes also normal. BUN 20, creatinine 0.7 and glucose 106. Urinalysis completely normal. CT scan was read as showing multiple diverticula in the colon, moderate stool in the distal colon, mild urinary bladder wall thickening and prostate gland 5.1 x 3.8, not too large. It was described as prominent, but nothing very serious. IMPRESSION: A thickened bladder wall, could be a result of mild bladder outlet obstruction from neurogenic bladder and/or benign prostatic hypertrophy. In the absence of any clinical history or symptoms or problems of infection or retention, this does not need to be pursued any further at this point. In the event of urinary problems or hydronephrosis or rising creatinine, etc, one would explore this with postvoid residual volumes and/or cystoscopy. Multiple other medical issues of GI bleed, recently completed a colonoscopy showing diverticulosis and a rectal polyp and internal hemorrhoids. Other medical problems listed earlier including stroke, coronary artery disease, diabetes, hypertension and hyperlipidemia. [facility]# [id number]
[2017-09-19 06:33] LABS: % BASOPHILS 0.3 % (0.0-2.0); % EOSINOPHILS 8.9 % (0.0-5.0); % LYMPHOCYTES 27.3 % (20.0-50.0); % MONOCYTES 8.6 % (2.0-10.0); % NEUTROPHILS 54.9 % (40.0-80.0); EOSINOPHILE ABSOLUTE 0.6 Th/cmm (0.1-0.4); HEMATOCRIT 28.7 % (41.0-60); HEMOGLOBIN 9.7 gm/dL (12-16); LYMPHOCYTE ABSOLUTE 1.8 Th/cmm (1.5-3.0); MEAN CELL VOLUME 90.4 fl (80-99); MEAN CORPUSCULAR HEMOGLOBIN 30.4 pg (27.0-31.0); MEAN CORPUSCULAR HGB CONC 33.6 pg (28.0-36.0); MEAN PLATELET VOLUME 8.4 fl; MONOCYTE ABSOLUTE 0.6 Th/cmm (0.3-1.0); NEUTROPHILE ABSOLUTE 3.5 Th/cmm (1.8-8.0); PLATELET COUNT 152 Th/cmm (150-400); RED BLOOD COUNT 3.17 Mil/cmm (3.80-5.80); RED CELL DISTRIBUTION WIDTH 12.8 % (11.5-20.0); WHITE BLOOD COUNT 6.5 Th/cmm (4.8-10.8)
[2017-09-19 06:44] LABS: ANION GAP 6.8 (7.0-16.0); BUN - UREA NITROGEN 3 mg/dL (7-25); CALCIUM SERUM 8.9 mg/dL (8.6-10.3); CARBON DIOXIDE 28.2 mEq/L (21.0-31.0); CHLORIDE 109 mEq/L (98-107); CREATININE - SERUM 0.6 mg/dL (0.7-1.3); GFR AFRICAN-AMERICAN > 60.0 ml/min (>90); GFR NON AFRICAN-AMERICAN > 60.0 ml/min; GLUCOSE 95 mg/dL (70-105); SODIUM SERUM 141 mEq/L (136-145)
[2017-09-19] MEDS ORDERED: Potassium Chloride Elixir 20 mEq /15 mL UDC PO ONE (08:41)
--- NOTE | 2017-09-19 08:59 | GI Progress Note ---
Subjective - Review of Systems Service Date: 09/19/17 Subjective: No further GI bleeding Objective - Results Result Diagrams: 09/19/17 05:25 09/19/17 05:25 Recent Labs: Laboratory Last Values WBC 6.5 Th/cmm (4.8-10.8) 09/19/17 05:25 RBC 3.17 Mil/cmm (3.80-5.80) L 09/19/17 05:25 Hgb 9.7 gm/dL (12-16) L 09/19/17 05:25 Hct 28.7 % (41.0-60) L 09/19/17 05:25 MCV 90.4 fl (80-99) 09/19/17 05:25 MCH 30.4 pg (27.0-31.0) 09/19/17 05:25 MCHC Differential 33.6 pg (28.0-36.0) 09/19/17 05:25 RDW 12.8 % (11.5-20.0) 09/19/17 05:25 Plt Count 152 Th/cmm (150-400) 09/19/17 05:25 MPV 8.4 fl 09/19/17 05:25 Neutrophils % 54.9 % (40.0-80.0) 09/19/17 05:25 Lymphocytes % 27.3 % (20.0-50.0) 09/19/17 05:25 Monocytes % 8.6 % (2.0-10.0) 09/19/17 05:25 Eosinophils % 8.9 % (0.0-5.0) H 09/19/17 05:25 Basophils % 0.3 % (0.0-2.0) 09/19/17 05:25 PT 11.7 SECONDS (9.5-11.5) H 09/18/17 05:16 INR 1.12 (0.5-1.4) 09/18/17 05:16 Sodium 141 mEq/L (136-145) 09/19/17 05:25 Potassium 3.0 mEq/L (3.5-5.1) L 09/19/17 05:25 Chloride 109 mEq/L (98-107) H 09/19/17 05:25 Carbon Dioxide 28.2 mEq/L (21.0-31.0) 09/19/17 05:25 Anion Gap 6.8 (7.0-16.0) L 09/19/17 05:25 BUN 3 mg/dL (7-25) L 09/19/17 05:25 Creatinine 0.6 mg/dL (0.7-1.3) L 09/19/17 05:25 Est GFR ( Amer) > 60.0 ml/min (>90) 09/19/17 05:25 Est GFR (Non-Af Amer) > 60.0 ml/min 09/19/17 05:25 BUN/Creatinine Ratio 5.0 09/19/17 05:25 Glucose 95 mg/dL (70-105) 09/19/17 05:25 POC Glucose 106 MG/DL (70 - 105) H 09/18/17 07:03 Calcium 8.9 mg/dL (8.6-10.3) 09/19/17 05:25 Total Bilirubin 0.5 mg/dL (0.3-1.0) 09/16/17 14:50 AST 13 U/L (13-39) 09/16/17 14:50 ALT 10 U/L (7-52) 09/16/17 14:50 Alkaline Phosphatase 53 U/L (34-104) 09/16/17 14:50 Creatine Kinase 31 U/L (30-223) 09/16/17 14:50 Troponin I 0.01 ng/mL (0.01-0.05) 09/16/17 14:50 B-Natriuretic Peptide 11.2 pg/mL (5.0-100.0) 09/16/17 14:50 Total Protein 6.2 gm/dL (6.0-8.3) 09/16/17 14:50 Albumin 3.6 gm/dL (4.2-5.5) L 09/16/17 14:50 Globulin 2.6 gm/dL 09/16/17 14:50 Albumin/Globulin Ratio 1.4 (1.0-1.8) 09/16/17 14:50 Triglycerides 112 mg/dL (<150) 09/17/17 06:21 Cholesterol 94 mg/dL (<200) 09/17/17 06:21 LDL Cholesterol Direct 59 mg/dL (75-193) L 09/17/17 06:21 HDL Cholesterol 23 mg/dL (23-92) 09/17/17 06:21 Amylase 78 U/L (29-103) 09/16/17 14:50 Lipase 53 U/L (11-82) 09/16/17 14:50 TSH 1.32 uIU/ml (0.34-5.60) 09/17/17 06:21 Urine Source CLEAN C 09/18/17 00:20 Urine Color YELLOW 09/18/17 00:20 Urine Clarity CLEAR (CLEAR) 09/18/17 00:20 Urine pH 8.0 (4.6 - 8.0) 09/18/17 00:20 Ur Specific [place] 1.015 (1.005-1.030) 09/18/17 00:20 Urine Protein NEGATIVE mg/dL (NEGATIVE) 09/18/17 00:20 Urine Glucose (UA) NEGATIVE mg/dL (NEGATIVE) 09/18/17 00:20 Urine Ketones NEGATIVE mg/dL (NEGATIVE) 09/18/17 00:20 Urine Blood NEGATIVE (NEGATIVE) 09/18/17 00:20 Urine Nitrate NEGATIVE (NEGATIVE) 09/18/17 00:20 Urine Bilirubin NEGATIVE (NEGATIVE) 09/18/17 00:20 Urine Urobilinogen 0.2 E.U./dL (0.2 - 1.0) 09/18/17 00:20 Ur Leukocyte Esterase NEGATIVE (NEGATIVE) 09/18/17 00:20 Urine RBC 0-2 /hpf (0-5) H 09/18/17 00:20 Urine WBC 0-2 /hpf (0-5) 09/18/17 00:20 Ur Epithelial Cells NONE SEEN /lpf (FEW) 09/18/17 00:20 Urine Bacteria FEW /hpf (NONE SEEN) 09/18/17 00:20 Blood Type B POSITIVE 09/16/17 21:49 Antibody Screen NEGATIVE 09/16/17 21:49 - Physical Exam Vitals and I&O: Vital Signs Temp 96.2 F 09/19/17 04:00 Pulse 60 09/19/17 04:00 Resp 18 09/19/17 04:00 BP 137/76 09/19/17 04:00 Pulse Ox 96 09/19/17 04:00 Intake & Output 09/18/17 09/19/17 09/19/17 18:59 06:59 18:59 Intake Total 500 200 Output Total 700 1200 Balance -200 -1000 Weight (lbs) 87.543 kg 87.543 kg Intake: Oral 500 200 Output: Urine 700 1200 Other: # Bowel Movements 1 0 Stool Characteristics Liquid Liquid Weight Source Bedscale Bedscale Active Medications: Current Medications Acetaminophen (Tylenol) 650 mg PO DAILY [facility] Stop: 11/17/17 08:59 Last Admin: 09/18/17 10:27 Dose: Not Given Acetaminophen (Tylenol) 650 mg PO Q4HR PRN PRN Reason: PAIN OR TEMP >101 Stop: 11/16/17 16:42 Al Hydrox/Mg Hydrox/Simethicone (Maalox) 30 ml PO Q6H PRN PRN Reason: Heartburn Albuterol/Ipratropium (Duoneb Neb) 3 ml HHN Q6HR PRN PRN Reason: SOB/WHEEZING Stop: 11/16/17 16:42 Amlodipine Besylate (Norvasc) 7.5 mg PO DAILY [facility] Stop: 11/17/17 08:59 Last Admin: 09/18/17 10:20 Dose: 7.5 mg Artificial Tears (Artificial Tears Ophth Soln) 1 drop EACH EYE BID [facility] Stop: 11/16/17 16:59 Last Admin: 09/18/17 17:18 Dose: 1 drop Aspirin (Aspirin Chewable) 81 mg PO DAILY [facility] Stop: 11/17/17 08:59 Last Admin: 09/18/17 10:21 Dose: 81 mg Bacitracin (Baciquent) 0 appl TP DAILY [facility] Stop: 11/17/17 08:59 Last Admin: 09/18/17 10:18 Dose: 1 appl Bisacodyl (Dulcolax 10 Mg Supp) 10 mg RC DAILY PRN PRN Reason: IF MOM INEFFECTIVE Stop: 11/16/17 16:42 Docusate Sodium (Colace) 100 mg PO DAILY [facility] Stop: 11/17/17 08:59 Last Admin: 09/18/17 10:34 Dose: Not Given Dextrose/Sodium Chloride (D5-0.9%Ns) 1,000 mls @ 75 mls/hr IV .[id number] [facility] Stop: 11/17/17 17:29 Last Admin: 09/18/17 17:20 Dose: 75 mls/hr Ibuprofen (Motrin) 600 mg PO Q8H PRN PRN Reason: PAIN Stop: 11/16/17 16:42 Magnesium Hydroxide (Milk Of Magnesia) 30 ml PO Q72H [facility] Stop: 11/16/17 16:44 Last Admin: 09/17/17 17:10 Dose: Not Given Potassium Chloride (Potassium Chloride Elixir) 40 meq PO X1 ONE Stop: 09/19/17 08:42 Senna (Senna) 8.6 mg PO HS [facility] Stop: 11/16/17 20:59 Last Admin: 09/18/17 20:24 Dose: Not Given Simvastatin (Zocor) 20 mg PO HS [facility] Stop: 11/16/17 20:59 Last Admin: 09/18/17 20:23 Dose: 20 mg Sodium Phosphate (Fleet Enema) 135 ml RC Q48H PRN PRN Reason: IF DULCOLAX INEFFECTIVE Stop: 11/16/17 16:42 Tramadol HCl (Ultram) 50 mg PO Q6H PRN PRN Reason: PAIN Stop: 11/16/17 16:42 Last Admin: 09/18/17 20:33 Dose: 50 mg Trazodone HCl (Desyrel) 75 mg PO [facility] PRN Reason: Protocol Stop: 11/16/17 20:59 Valsartan (Diovan) 80 mg PO [facility] Stop: 11/16/17 20:59 Last Admin: 09/18/17 20:23 Dose: 80 mg Vitamin D (Vitamin D) 1,000 iu PO DAILY [facility] Stop: 11/17/17 08:59 Last Admin: 09/18/17 10:26 Dose: 1,000 iu General: Alert HEENT: Atraumatic, PERRLA Neck: Supple Cardiovascular: Regular rate Abdomen: Bowel sounds, Soft, no Tender, no Hepatomegaly, no Splenomegaly, no Distended, no Mass, no Guarding Assessment/Plan - Problem List Patient Problems: All Active Problems TARRY LOOSE STOOL (Acute) - Assessment Assessment: # Rectal bleeding # Anemia Colonoscopy on 09/18 showed severe diverticulosis, hemorrhoids, and small rectal polyp. Bleed likely from diverticulosis. Plan: - advance diet as tolerated - high fiber diet - trend H/H, transfuse to keep above 7 - stable from GI perspective as long as tolerating diet
[2017-09-19] MEDS: Polyvinyl Alcohol Ophth Soln 15 mL Bottle EACH EYE SCH ×2 (10:28→17:42)
[2017-09-19] MEDS: Aspirin 81mg Chewable Tab PO SCH (10:28)
[2017-09-19] MEDS: Multivitamin w/ Minerals Tab PO SCH (10:30)
[2017-09-19] MEDS: D5-0.9%NS 1,000 ML IV SCH (17:42)
--- NOTE | 2017-09-19 18:10 | Progress Notes ---
DATE: 09/19/2017 SUBJECTIVE: The patient was seen in his room, lying in the bed. The patient is asleep but easily arousable. The patient denies any pain or discomfort at this time. Otherwise, the patient appears to be in no acute distress. The patient had colonoscopy yesterday and no signs or episodes of bleeding noted. OBJECTIVE: VITAL SIGNS: Temperature 96.2, heart rate of 60, blood pressure 137/76, respirations 18, and 96% on room air. HEENT: Head is atraumatic and normocephalic. Eyes: Bilateral conjunctivae are clear. Bilateral pupils are equally round and reactive. NECK: Supple. No JVD. CARDIOVASCULAR: S1 and S2, without murmur. PULMONARY: Clear to auscultation. GASTROINTESTINAL: Soft and nontender without guarding. Positive bowel sounds. MUSCULOSKELETAL: No clubbing. No cyanosis noted. ASSESSMENT: 1. Diverticulosis. 2. Status post colonoscopy. 3. Dementia. 4. Hypertension. 5. Diabetes. PLAN: We will advance the patient's diet to soft diet as tolerated. We will follow up with the GI doctor. We are also going to replace potassium for today and going to repeat labs in the morning. Treatment plans were discussed with the patient's nurse. Treatment plans were discussed with Dr. Avendano. JOB# [id number]
[2017-09-20] MEDS: D5-0.9%NS 1,000 ML IV SCH ×3 (05:27→22:00)
[2017-09-20 06:08] LABS: ALB/GLOB RATIO 1.6 (1.0-1.8); ALBUMIN 3.4 gm/dL (4.2-5.5); ALKALINE PHOSPHATASE 44 U/L (34-104); ANION GAP 6.4 (7.0-16.0); BILIRUBIN,TOTAL 0.4 mg/dL (0.3-1.0); BUN - UREA NITROGEN 4 mg/dL (7-25); CALCIUM SERUM 8.8 mg/dL (8.6-10.3); CARBON DIOXIDE 28.8 mEq/L (21.0-31.0); CHLORIDE 107 mEq/L (98-107); CREATININE - SERUM 0.7 mg/dL (0.7-1.3); GFR AFRICAN-AMERICAN > 60.0 ml/min (>90); GFR NON AFRICAN-AMERICAN > 60.0 ml/min; GLUCOSE 89 mg/dL (70-105); POTASSIUM SERUM 3.2 mEq/L (3.5-5.1); SGOT 16 U/L (13-39); SGPT/ALT 10 U/L (7-52); SODIUM SERUM 139 mEq/L (136-145); TOTAL PROTEIN,SERUM 5.6 gm/dL (6.0-8.3)
--- NOTE | 2017-09-20 09:41 | GI Progress Note ---
Subjective - Review of Systems Subjective: No GI bleeding Objective - Results Result Diagrams: 09/19/17 05:25 09/20/17 05:24 Recent Labs: Laboratory Last Values WBC 6.5 Th/cmm (4.8-10.8) 09/19/17 05:25 RBC 3.17 Mil/cmm (3.80-5.80) L 09/19/17 05:25 Hgb 9.7 gm/dL (12-16) L 09/19/17 05:25 Hct 28.7 % (41.0-60) L 09/19/17 05:25 MCV 90.4 fl (80-99) 09/19/17 05:25 MCH 30.4 pg (27.0-31.0) 09/19/17 05:25 MCHC Differential 33.6 pg (28.0-36.0) 09/19/17 05:25 RDW 12.8 % (11.5-20.0) 09/19/17 05:25 Plt Count 152 Th/cmm (150-400) 09/19/17 05:25 MPV 8.4 fl 09/19/17 05:25 Neutrophils % 54.9 % (40.0-80.0) 09/19/17 05:25 Lymphocytes % 27.3 % (20.0-50.0) 09/19/17 05:25 Monocytes % 8.6 % (2.0-10.0) 09/19/17 05:25 Eosinophils % 8.9 % (0.0-5.0) H 09/19/17 05:25 Basophils % 0.3 % (0.0-2.0) 09/19/17 05:25 PT 11.7 SECONDS (9.5-11.5) H 09/18/17 05:16 INR 1.12 (0.5-1.4) 09/18/17 05:16 Sodium 139 mEq/L (136-145) 09/20/17 05:24 Potassium 3.2 mEq/L (3.5-5.1) L 09/20/17 05:24 Chloride 107 mEq/L (98-107) 09/20/17 05:24 Carbon Dioxide 28.8 mEq/L (21.0-31.0) 09/20/17 05:24 Anion Gap 6.4 (7.0-16.0) L 09/20/17 05:24 BUN 4 mg/dL (7-25) L 09/20/17 05:24 Creatinine 0.7 mg/dL (0.7-1.3) 09/20/17 05:24 Est GFR ( Amer) > 60.0 ml/min (>90) 09/20/17 05:24 Est GFR (Non-Af Amer) > 60.0 ml/min 09/20/17 05:24 BUN/Creatinine Ratio 5.7 09/20/17 05:24 Glucose 89 mg/dL (70-105) 09/20/17 05:24 POC Glucose 106 MG/DL (70 - 105) H 09/18/17 07:03 Calcium 8.8 mg/dL (8.6-10.3) 09/20/17 05:24 Total Bilirubin 0.4 mg/dL (0.3-1.0) 09/20/17 05:24 AST 16 U/L (13-39) 09/20/17 05:24 ALT 10 U/L (7-52) 09/20/17 05:24 Alkaline Phosphatase 44 U/L (34-104) 09/20/17 05:24 Creatine Kinase 31 U/L (30-223) 09/16/17 14:50 Troponin I 0.01 ng/mL (0.01-0.05) 09/16/17 14:50 B-Natriuretic Peptide 11.2 pg/mL (5.0-100.0) 09/16/17 14:50 Total Protein 5.6 gm/dL (6.0-8.3) L 09/20/17 05:24 Albumin 3.4 gm/dL (4.2-5.5) L 09/20/17 05:24 Globulin 2.2 gm/dL 09/20/17 05:24 Albumin/Globulin Ratio 1.6 (1.0-1.8) 09/20/17 05:24 Triglycerides 112 mg/dL (<150) 09/17/17 06:21 Cholesterol 94 mg/dL (<200) 09/17/17 06:21 LDL Cholesterol Direct 59 mg/dL (75-193) L 09/17/17 06:21 HDL Cholesterol 23 mg/dL (23-92) 09/17/17 06:21 Amylase 78 U/L (29-103) 09/16/17 14:50 Lipase 53 U/L (11-82) 09/16/17 14:50 TSH 1.32 uIU/ml (0.34-5.60) 09/17/17 06:21 Urine Source CLEAN C 09/18/17 00:20 Urine Color YELLOW 09/18/17 00:20 Urine Clarity CLEAR (CLEAR) 09/18/17 00:20 Urine pH 8.0 (4.6 - 8.0) 09/18/17 00:20 Ur Specific [place] 1.015 (1.005-1.030) 09/18/17 00:20 Urine Protein NEGATIVE mg/dL (NEGATIVE) 09/18/17 00:20 Urine Glucose (UA) NEGATIVE mg/dL (NEGATIVE) 09/18/17 00:20 Urine Ketones NEGATIVE mg/dL (NEGATIVE) 09/18/17 00:20 Urine Blood NEGATIVE (NEGATIVE) 09/18/17 00:20 Urine Nitrate NEGATIVE (NEGATIVE) 09/18/17 00:20 Urine Bilirubin NEGATIVE (NEGATIVE) 09/18/17 00:20 Urine Urobilinogen 0.2 E.U./dL (0.2 - 1.0) 09/18/17 00:20 Ur Leukocyte Esterase NEGATIVE (NEGATIVE) 09/18/17 00:20 Urine RBC 0-2 /hpf (0-5) H 09/18/17 00:20 Urine WBC 0-2 /hpf (0-5) 09/18/17 00:20 Ur Epithelial Cells NONE SEEN /lpf (FEW) 09/18/17 00:20 Urine Bacteria FEW /hpf (NONE SEEN) 09/18/17 00:20 Blood Type B POSITIVE 09/16/17 21:49 Antibody Screen NEGATIVE 09/16/17 21:49 - Physical Exam Vitals and I&O: Vital Signs Temp 98.0 F 09/20/17 04:34 Pulse 64 09/20/17 04:34 Resp 17 09/20/17 04:34 BP 124/70 09/20/17 04:34 Pulse Ox 98 09/20/17 04:34 Intake & Output 09/19/17 09/20/17 09/20/17 18:59 06:59 18:59 Intake Total 1231.25 Output Total 1450 Balance -218.75 Weight (lbs) 88.451 kg 88.451 kg Intake: Intake, IV Amount 881.25 D5-0.9%Ns 1,000 ml @ 75 881.25 mls/hr IV .[id number] [facility] Rx #:[id number] Oral 350 Output: Urine 1450 Stool 0 Other: # Bowel Movements 0 Stool Characteristics Liquid Weight Source Estimated Bedscale Active Medications: Current Medications Acetaminophen (Tylenol) 650 mg PO DAILY [facility] Stop: 11/17/17 08:59 Last Admin: 09/19/17 10:29 Dose: 650 mg Acetaminophen (Tylenol) 650 mg PO Q4HR PRN PRN Reason: PAIN OR TEMP >101 Stop: 11/16/17 16:42 Al Hydrox/Mg Hydrox/Simethicone (Maalox) 30 ml PO Q6H PRN PRN Reason: Heartburn Albuterol/Ipratropium (Duoneb Neb) 3 ml HHN Q6HR PRN PRN Reason: SOB/WHEEZING Stop: 11/16/17 16:42 Amlodipine Besylate (Norvasc) 7.5 mg PO DAILY [facility] Stop: 11/17/17 08:59 Last Admin: 09/19/17 10:28 Dose: 7.5 mg Artificial Tears (Artificial Tears Ophth Soln) 1 drop EACH EYE BID [facility] Stop: 11/16/17 16:59 Last Admin: 09/19/17 17:42 Dose: 1 drop Aspirin (Aspirin Chewable) 81 mg PO DAILY [facility] Stop: 11/17/17 08:59 Last Admin: 09/19/17 10:28 Dose: 81 mg Bacitracin (Baciquent) 0 appl TP DAILY [facility] Stop: 11/17/17 08:59 Last Admin: 09/19/17 16:00 Dose: Not Given Bisacodyl (Dulcolax 10 Mg Supp) 10 mg RC DAILY PRN PRN Reason: IF MOM INEFFECTIVE Stop: 11/16/17 16:42 Docusate Sodium (Colace) 100 mg PO DAILY [facility] Stop: 11/17/17 08:59 Last Admin: 09/19/17 10:28 Dose: 100 mg Dextrose/Sodium Chloride (D5-0.9%Ns) 1,000 mls @ 75 mls/hr IV .[id number] [facility] Stop: 11/17/17 17:29 Last Admin: 09/20/17 05:27 Dose: 75 mls/hr Ibuprofen (Motrin) 600 mg PO Q8H PRN PRN Reason: PAIN Stop: 11/16/17 16:42 Magnesium Hydroxide (Milk Of Magnesia) 30 ml PO Q72H [facility] Stop: 11/16/17 16:44 Last Admin: 09/17/17 17:10 Dose: Not Given Senna (Senna) 8.6 mg PO [facility] Stop: 11/16/17 20:59 Last Admin: 09/19/17 21:15 Dose: Not Given Simvastatin (Zocor) 20 mg PO [facility] Stop: 11/16/17 20:59 Last Admin: 09/19/17 21:18 Dose: 20 mg Sodium Phosphate (Fleet Enema) 135 ml RC Q48H PRN PRN Reason: IF DULCOLAX INEFFECTIVE Stop: 11/16/17 16:42 Tramadol HCl (Ultram) 50 mg PO Q6H PRN PRN Reason: PAIN Stop: 11/16/17 16:42 Last Admin: 09/19/17 19:44 Dose: 50 mg Trazodone HCl (Desyrel) 75 mg PO [facility] PRN Reason: Protocol Stop: 11/16/17 20:59 Last Admin: 09/19/17 21:13 Dose: 75 mg Valsartan (Diovan) 80 mg PO [facility] Stop: 11/16/17 20:59 Last Admin: 09/19/17 21:29 Dose: 80 mg Vitamin D (Vitamin D) 1,000 iu PO DAILY [facility] Stop: 11/17/17 08:59 Last Admin: 09/19/17 10:30 Dose: 1,000 iu General: Alert HEENT: Atraumatic, PERRLA Neck: Supple Cardiovascular: Regular rate Abdomen: Bowel sounds, Soft, no Tender, no Hepatomegaly, no Splenomegaly, no Distended, no Mass, no Guarding Assessment/Plan - Problem List Patient Problems: All Active Problems TARRY LOOSE STOOL (Acute) - Assessment Assessment: # Rectal bleeding # Anemia Colonoscopy on 09/18 showed severe diverticulosis, hemorrhoids, and small rectal polyp. Bleed likely from diverticulosis. Plan: - advance diet as tolerated - high fiber diet - trend H/H, transfuse to keep above 7 - stable from GI perspective as long as tolerating diet GI to see as needed, please call with any questions
--- NOTE | 2017-09-20 10:49 | Diagnostic Imaging Report ---
Exam: Ultrasound examination of gallbladder. HISTORY: Bladder wall thickening Real-time ultrasound examination of bladder performed multiple planes. The study was correlated with CT examination of the abdomen pelvis of 09/17/2017 demonstrates a poor visualization urinary bladder. Patient is uncooperative. The urinary bladder is intact. Patient is able to avoid spontaneously. IMPRESSION Limited examination due to bladder is nondiagnostic.
[2017-09-20] MEDS: Multivitamin w/ Minerals Tab PO SCH (11:08)
[2017-09-20] MEDS: Aspirin 81mg Chewable Tab PO SCH (11:10)
[2017-09-20] MEDS: Polyvinyl Alcohol Ophth Soln 15 mL Bottle EACH EYE SCH ×2 (11:14→17:25)
--- NOTE | 2017-09-20 11:21 | General Progress Note ---
Subjective - Review of Systems Events since last encounter: denies pain comfortable Objective - Results Result Diagrams: 09/19/17 05:25 09/20/17 05:24 Recent Labs: Laboratory Last Values WBC 6.5 Th/cmm (4.8-10.8) 09/19/17 05:25 RBC 3.17 Mil/cmm (3.80-5.80) L 09/19/17 05:25 Hgb 9.7 gm/dL (12-16) L 09/19/17 05:25 Hct 28.7 % (41.0-60) L 09/19/17 05:25 MCV 90.4 fl (80-99) 09/19/17 05:25 MCH 30.4 pg (27.0-31.0) 09/19/17 05:25 MCHC Differential 33.6 pg (28.0-36.0) 09/19/17 05:25 RDW 12.8 % (11.5-20.0) 09/19/17 05:25 Plt Count 152 Th/cmm (150-400) 09/19/17 05:25 MPV 8.4 fl 09/19/17 05:25 Neutrophils % 54.9 % (40.0-80.0) 09/19/17 05:25 Lymphocytes % 27.3 % (20.0-50.0) 09/19/17 05:25 Monocytes % 8.6 % (2.0-10.0) 09/19/17 05:25 Eosinophils % 8.9 % (0.0-5.0) H 09/19/17 05:25 Basophils % 0.3 % (0.0-2.0) 09/19/17 05:25 PT 11.7 SECONDS (9.5-11.5) H 09/18/17 05:16 INR 1.12 (0.5-1.4) 09/18/17 05:16 Sodium 139 mEq/L (136-145) 09/20/17 05:24 Potassium 3.2 mEq/L (3.5-5.1) L 09/20/17 05:24 Chloride 107 mEq/L (98-107) 09/20/17 05:24 Carbon Dioxide 28.8 mEq/L (21.0-31.0) 09/20/17 05:24 Anion Gap 6.4 (7.0-16.0) L 09/20/17 05:24 BUN 4 mg/dL (7-25) L 09/20/17 05:24 Creatinine 0.7 mg/dL (0.7-1.3) 09/20/17 05:24 Est GFR ( Amer) > 60.0 ml/min (>90) 09/20/17 05:24 Est GFR (Non-Af Amer) > 60.0 ml/min 09/20/17 05:24 BUN/Creatinine Ratio 5.7 09/20/17 05:24 Glucose 89 mg/dL (70-105) 09/20/17 05:24 POC Glucose 106 MG/DL (70 - 105) H 09/18/17 07:03 Calcium 8.8 mg/dL (8.6-10.3) 09/20/17 05:24 Total Bilirubin 0.4 mg/dL (0.3-1.0) 09/20/17 05:24 AST 16 U/L (13-39) 09/20/17 05:24 ALT 10 U/L (7-52) 09/20/17 05:24 Alkaline Phosphatase 44 U/L (34-104) 09/20/17 05:24 Creatine Kinase 31 U/L (30-223) 09/16/17 14:50 Troponin I 0.01 ng/mL (0.01-0.05) 09/16/17 14:50 B-Natriuretic Peptide 11.2 pg/mL (5.0-100.0) 09/16/17 14:50 Total Protein 5.6 gm/dL (6.0-8.3) L 09/20/17 05:24 Albumin 3.4 gm/dL (4.2-5.5) L 09/20/17 05:24 Globulin 2.2 gm/dL 09/20/17 05:24 Albumin/Globulin Ratio 1.6 (1.0-1.8) 09/20/17 05:24 Triglycerides 112 mg/dL (<150) 09/17/17 06:21 Cholesterol 94 mg/dL (<200) 09/17/17 06:21 LDL Cholesterol Direct 59 mg/dL (75-193) L 09/17/17 06:21 HDL Cholesterol 23 mg/dL (23-92) 09/17/17 06:21 Amylase 78 U/L (29-103) 09/16/17 14:50 Lipase 53 U/L (11-82) 09/16/17 14:50 TSH 1.32 uIU/ml (0.34-5.60) 09/17/17 06:21 Urine Source CLEAN C 09/18/17 00:20 Urine Color YELLOW 09/18/17 00:20 Urine Clarity CLEAR (CLEAR) 09/18/17 00:20 Urine pH 8.0 (4.6 - 8.0) 09/18/17 00:20 Ur Specific [place] 1.015 (1.005-1.030) 09/18/17 00:20 Urine Protein NEGATIVE mg/dL (NEGATIVE) 09/18/17 00:20 Urine Glucose (UA) NEGATIVE mg/dL (NEGATIVE) 09/18/17 00:20 Urine Ketones NEGATIVE mg/dL (NEGATIVE) 09/18/17 00:20 Urine Blood NEGATIVE (NEGATIVE) 09/18/17 00:20 Urine Nitrate NEGATIVE (NEGATIVE) 09/18/17 00:20 Urine Bilirubin NEGATIVE (NEGATIVE) 09/18/17 00:20 Urine Urobilinogen 0.2 E.U./dL (0.2 - 1.0) 09/18/17 00:20 Ur Leukocyte Esterase NEGATIVE (NEGATIVE) 09/18/17 00:20 Urine RBC 0-2 /hpf (0-5) H 09/18/17 00:20 Urine WBC 0-2 /hpf (0-5) 09/18/17 00:20 Ur Epithelial Cells NONE SEEN /lpf (FEW) 09/18/17 00:20 Urine Bacteria FEW /hpf (NONE SEEN) 09/18/17 00:20 Blood Type B POSITIVE 09/16/17 21:49 Antibody Screen NEGATIVE 09/16/17 21:49 - Physical Exam Vitals and I&O: Vital Signs Temp 98.0 F 09/20/17 04:34 Pulse 82 09/20/17 11:09 Resp 17 09/20/17 04:34 BP 132/69 09/20/17 11:09 Pulse Ox 98 09/20/17 04:34 Intake & Output 09/19/17 09/20/17 09/20/17 18:59 06:59 18:59 Intake Total 1231.25 Output Total 1450 Balance -218.75 Weight (lbs) 88.451 kg 88.451 kg Intake: Intake, IV Amount 881.25 D5-0.9%Ns 1,000 ml @ 75 881.25 mls/hr IV .[id number] [facility] Rx #:[id number] Oral 350 Output: Urine 1450 Stool 0 Other: # Bowel Movements 0 Stool Characteristics Liquid Weight Source Estimated Bedscale Active Medications: Current Medications Acetaminophen (Tylenol) 650 mg PO DAILY [facility] Stop: 11/17/17 08:59 Last Admin: 09/19/17 10:29 Dose: 650 mg Acetaminophen (Tylenol) 650 mg PO Q4HR PRN PRN Reason: PAIN OR TEMP >101 Stop: 11/16/17 16:42 Al Hydrox/Mg Hydrox/Simethicone (Maalox) 30 ml PO Q6H PRN PRN Reason: Heartburn Albuterol/Ipratropium (Duoneb Neb) 3 ml HHN Q6HR PRN PRN Reason: SOB/WHEEZING Stop: 11/16/17 16:42 Amlodipine Besylate (Norvasc) 7.5 mg PO DAILY [facility] Stop: 11/17/17 08:59 Last Admin: 09/20/17 11:09 Dose: 7.5 mg Artificial Tears (Artificial Tears Ophth Soln) 1 drop EACH EYE BID [facility] Stop: 11/16/17 16:59 Last Admin: 09/20/17 11:14 Dose: 1 drop Aspirin (Aspirin Chewable) 81 mg PO DAILY [facility] Stop: 11/17/17 08:59 Last Admin: 09/20/17 11:10 Dose: 81 mg Bacitracin (Baciquent) 0 appl TP DAILY [facility] Stop: 11/17/17 08:59 Last Admin: 09/20/17 11:10 Dose: 2 appl Bisacodyl (Dulcolax 10 Mg Supp) 10 mg RC DAILY PRN PRN Reason: IF MOM INEFFECTIVE Stop: 11/16/17 16:42 Docusate Sodium (Colace) 100 mg PO DAILY [facility] Stop: 11/17/17 08:59 Last Admin: 09/20/17 11:08 Dose: 100 mg Dextrose/Sodium Chloride (D5-0.9%Ns) 1,000 mls @ 75 mls/hr IV .[id number] [facility] Stop: 11/17/17 17:29 Last Admin: 04/01/18 05:27 Dose: 75 mls/hr Ibuprofen (Motrin) 600 mg PO Q8H PRN PRN Reason: PAIN Stop: 11/16/17 16:42 Magnesium Hydroxide (Milk Of Magnesia) 30 ml PO Q72H [facility] Stop: 11/16/17 16:44 Last Admin: 09/17/17 17:10 Dose: Not Given Senna (Senna) 8.6 mg PO HS [facility] Stop: 11/16/17 20:59 Last Admin: 09/19/17 21:15 Dose: Not Given Simvastatin (Zocor) 20 mg PO HS [facility] Stop: 11/16/17 20:59 Last Admin: 09/19/17 21:18 Dose: 20 mg Sodium Phosphate (Fleet Enema) 135 ml RC Q48H PRN PRN Reason: IF DULCOLAX INEFFECTIVE Stop: 11/16/17 16:42 Tramadol HCl (Ultram) 50 mg PO Q6H PRN PRN Reason: PAIN Stop: 11/16/17 16:42 Last Admin: 09/20/17 11:10 Dose: 50 mg Trazodone HCl (Desyrel) 75 mg PO [facility] PRN Reason: Protocol Stop: 11/16/17 20:59 Last Admin: 09/19/17 21:13 Dose: 75 mg Valsartan (Diovan) 80 mg PO [facility] Stop: 11/16/17 20:59 Last Admin: 09/19/17 21:29 Dose: 80 mg Vitamin D (Vitamin D) 1,000 iu PO DAILY [facility] Stop: 11/17/17 08:59 Last Admin: 09/20/17 11:08 Dose: 1,000 iu General: Alert HEENT: Atraumatic, PERRLA Neck: Supple Cardiovascular: Regular rate Abdomen: Bowel sounds, Soft, no Tender, no Hepatomegaly, no Splenomegaly, no Distended, no Mass, no Guarding Assessment/Plan - Problem List Patient Problems: All Active Problems TARRY LOOSE STOOL (Acute) Nutritional Asmnt/Malnutr-PDOC - Dietary Evaluation Malnutrition Findings (Please click <Entered> for more info): Nutritional Asmnt/Malnutrition Start: 09/17/17 17: 12 Text: Status: Complete Freq: Document 09/17/17 17:12 LCHENG (Rec: 09/17/17 17:20 [email or web address] [email or web address]) Nutritional Asmnt/Malnutrition Patient General Information Nutritional Screening High Risk Consult Diagnosis GI bleed Pertinent Medical Hx/Surgical Hx HTN, CAD, DM, CHF, CVA/TIA, dyslipidemia, PUD/GERD, ESRD, seizrue, dementia, encephalopathy, depression Subjective Information Consult received for low skin audra score. Pt seen busy with nurses, not appropriate to interview at time of visit. No diet order at this time. ordered clear liquid start at dinner. Per nurse note, pt had colonoscopy ordered. pt had blood in stool noted. Current Diet Order/ Nutrition Support clear liquid Pertinent Medications D5-0.9%ns, colace, senna, vit D Pertinent Labs 09/17 cl 111, ca 8.5 Nutritional Hx/Data Height 1.73 m Height (Calculated Centimeters) 172.7 Current Weight (lbs) 87.543 kg Weight (Calculated Kilograms) 87.5 Weight (Calculated Grams) 18781.3 [place] Body Weight 154 Body Mass Index (BMI) 29.3 Weight Status Overweight GI Symptoms Skin Integrity/Comment: reddened to right buttocks, sacrum, coccyx, pressure area to left buttocks Current %PO Negligible < 25% Estimated Nutritional Goals BEE in Kcals: Adj wt of IBW Calories/Kcals/Kg 25-30 Kcals Calculated 4388-2043 Protein: Adj wt of IBW Protein g/k-1.2 Protein Calculated 74-88 Fluid: ml 1850-2220ml (1ml/kcal) Nutritional Problem 1. Problem Problem altered GI function Etiology GI bleed Signs/Symptoms: pt on clear liquid diet and need for colonoscopy Intervention/Recommendation Comments 1. Continue with current diet as ordered. Recommend Boost Breeze BID to increase nutrition intake. 2. Monitor PO intake, wt, labs and skin integrity 3. F/U as high risk in 2-3 days, 09/19-09/20 Expected Outcomes/Goals Expected Outcomes/Goals 1. PO intake to meet at least 75% of nutritional needs. 2. Wt stability, skin to remain intact, labs to approach WNL.
[2017-09-20] MEDS ORDERED: Potassium Chloride 20 mEq ER Tab PO ONE (15:35)
[2017-09-20] MEDS: Magnesium Hydroxide (MOM) 30 mL UDC PO SCH (17:25)
[2017-09-21] MEDS: Multivitamin w/ Minerals Tab PO SCH (09:30)
[2017-09-21] MEDS: Polyvinyl Alcohol Ophth Soln 15 mL Bottle EACH EYE SCH ×2 (09:30→16:25)
[2017-09-21] MEDS: Aspirin 81mg Chewable Tab PO SCH (09:32)
[2017-09-21] MEDS: D5-0.9%NS 1,000 ML IV SCH (11:03)
[2017-09-21 11:31] LABS: ANION GAP 9.7 (7.0-16.0); BUN - UREA NITROGEN 6 mg/dL (7-25); CALCIUM SERUM 8.8 mg/dL (8.6-10.3); CARBON DIOXIDE 27.6 mEq/L (21.0-31.0); CHLORIDE 106 mEq/L (98-107); CREATININE - SERUM 0.7 mg/dL (0.7-1.3); GFR AFRICAN-AMERICAN > 60.0 ml/min (>90); GFR NON AFRICAN-AMERICAN > 60.0 ml/min; GLUCOSE 129 mg/dL (70-105); POTASSIUM SERUM 3.3 mEq/L (3.5-5.1); SODIUM SERUM 140 mEq/L (136-145)
--- NOTE | 2017-09-21 11:35 | General Progress Note ---
Subjective - Review of Systems Service Date: 09/21/17 Subjective: pt is in no actute distress denies pain pt seems comfortable resting in bed Objective - Results Result Diagrams: 09/19/17 05:25 09/20/17 05:24 Recent Labs: Laboratory Last Values WBC 6.5 Th/cmm (4.8-10.8) 09/19/17 05:25 RBC 3.17 Mil/cmm (3.80-5.80) L 09/19/17 05:25 Hgb 9.7 gm/dL (12-16) L 09/19/17 05:25 Hct 28.7 % (41.0-60) L 09/19/17 05:25 MCV 90.4 fl (80-99) 09/19/17 05:25 MCH 30.4 pg (27.0-31.0) 09/19/17 05:25 MCHC Differential 33.6 pg (28.0-36.0) 09/19/17 05:25 RDW 12.8 % (11.5-20.0) 09/19/17 05:25 Plt Count 152 Th/cmm (150-400) 09/19/17 05:25 MPV 8.4 fl 09/19/17 05:25 Neutrophils % 54.9 % (40.0-80.0) 09/19/17 05:25 Lymphocytes % 27.3 % (20.0-50.0) 09/19/17 05:25 Monocytes % 8.6 % (2.0-10.0) 09/19/17 05:25 Eosinophils % 8.9 % (0.0-5.0) H 09/19/17 05:25 Basophils % 0.3 % (0.0-2.0) 09/19/17 05:25 PT 11.7 SECONDS (9.5-11.5) H 09/18/17 05:16 INR 1.12 (0.5-1.4) 09/18/17 05:16 Sodium 139 mEq/L (136-145) 09/20/17 05:24 Potassium 3.2 mEq/L (3.5-5.1) L 09/20/17 05:24 Chloride 107 mEq/L (98-107) 09/20/17 05:24 Carbon Dioxide 28.8 mEq/L (21.0-31.0) 09/20/17 05:24 Anion Gap 6.4 (7.0-16.0) L 09/20/17 05:24 BUN 4 mg/dL (7-25) L 09/20/17 05:24 Creatinine 0.7 mg/dL (0.7-1.3) 09/20/17 05:24 Est GFR ( Amer) > 60.0 ml/min (>90) 09/20/17 05:24 Est GFR (Non-Af Amer) > 60.0 ml/min 09/20/17 05:24 BUN/Creatinine Ratio 5.7 09/20/17 05:24 Glucose 89 mg/dL (70-105) 09/20/17 05:24 POC Glucose 106 MG/DL (70 - 105) H 09/18/17 07:03 Calcium 8.8 mg/dL (8.6-10.3) 09/20/17 05:24 Total Bilirubin 0.4 mg/dL (0.3-1.0) 09/20/17 05:24 AST 16 U/L (13-39) 09/20/17 05:24 ALT 10 U/L (7-52) 09/20/17 05:24 Alkaline Phosphatase 44 U/L (34-104) 09/20/17 05:24 Creatine Kinase 31 U/L (30-223) 09/16/17 14:50 Troponin I 0.01 ng/mL (0.01-0.05) 09/16/17 14:50 B-Natriuretic Peptide 11.2 pg/mL (5.0-100.0) 09/16/17 14:50 Total Protein 5.6 gm/dL (6.0-8.3) L 09/20/17 05:24 Albumin 3.4 gm/dL (4.2-5.5) L 09/20/17 05:24 Globulin 2.2 gm/dL 09/20/17 05:24 Albumin/Globulin Ratio 1.6 (1.0-1.8) 09/20/17 05:24 Triglycerides 112 mg/dL (<150) 09/17/17 06:21 Cholesterol 94 mg/dL (<200) 09/17/17 06:21 LDL Cholesterol Direct 59 mg/dL (75-193) L 09/17/17 06:21 HDL Cholesterol 23 mg/dL (23-92) 09/17/17 06:21 Amylase 78 U/L (29-103) 09/16/17 14:50 Lipase 53 U/L (11-82) 09/16/17 14:50 TSH 1.32 uIU/ml (0.34-5.60) 09/17/17 06:21 Urine Source CLEAN C 09/18/17 00:20 Urine Color YELLOW 09/18/17 00:20 Urine Clarity CLEAR (CLEAR) 09/18/17 00:20 Urine pH 8.0 (4.6 - 8.0) 09/18/17 00:20 Ur Specific [place] 1.015 (1.005-1.030) 09/18/17 00:20 Urine Protein NEGATIVE mg/dL (NEGATIVE) 09/18/17 00:20 Urine Glucose (UA) NEGATIVE mg/dL (NEGATIVE) 09/18/17 00:20 Urine Ketones NEGATIVE mg/dL (NEGATIVE) 09/18/17 00:20 Urine Blood NEGATIVE (NEGATIVE) 09/18/17 00:20 Urine Nitrate NEGATIVE (NEGATIVE) 09/18/17 00:20 Urine Bilirubin NEGATIVE (NEGATIVE) 09/18/17 00:20 Urine Urobilinogen 0.2 E.U./dL (0.2 - 1.0) 09/18/17 00:20 Ur Leukocyte Esterase NEGATIVE (NEGATIVE) 09/18/17 00:20 Urine RBC 0-2 /hpf (0-5) H 09/18/17 00:20 Urine WBC 0-2 /hpf (0-5) 09/18/17 00:20 Ur Epithelial Cells NONE SEEN /lpf (FEW) 09/18/17 00:20 Urine Bacteria FEW /hpf (NONE SEEN) 09/18/17 00:20 Blood Type B POSITIVE 09/16/17 21:49 Antibody Screen NEGATIVE 09/16/17 21:49 - Physical Exam Vitals and I&O: Vital Signs Temp 98.0 F 09/21/17 08:00 Pulse 60 09/21/17 09:31 Resp 18 09/21/17 09:47 BP 118/65 09/21/17 09:31 Pulse Ox 94 09/21/17 08:00 Intake & Output 04/01/18 04/02/18 04/02/18 18:59 06:59 18:59 Intake Total 898.75 342.5 978.75 Balance 898.75 342.5 978.75 Weight (lbs) 88.451 kg Intake: Intake, IV Amount 898.75 342.5 978.75 D5-0.9%Ns 1,000 ml @ 75 898.75 342.5 978.75 mls/hr IV .[id number] [facility] Rx #:[id number] Other: Weight Source Bedscale Active Medications: Current Medications Acetaminophen (Tylenol) 650 mg PO DAILY [facility] Stop: 11/17/17 08:59 Last Admin: 09/21/17 09:31 Dose: Not Given Acetaminophen (Tylenol) 650 mg PO Q4HR PRN PRN Reason: PAIN OR TEMP >101 Stop: 11/16/17 16:42 Al Hydrox/Mg Hydrox/Simethicone (Maalox) 30 ml PO Q6H PRN PRN Reason: Heartburn Albuterol/Ipratropium (Duoneb Neb) 3 ml HHN Q6HR PRN PRN Reason: SOB/WHEEZING Stop: 11/16/17 16:42 Amlodipine Besylate (Norvasc) 7.5 mg PO DAILY [facility] Stop: 11/17/17 08:59 Last Admin: 09/21/17 09:31 Dose: 7.5 mg Artificial Tears (Artificial Tears Ophth Soln) 1 drop EACH EYE BID [facility] Stop: 11/16/17 16:59 Last Admin: 09/21/17 09:30 Dose: 1 drop Aspirin (Aspirin Chewable) 81 mg PO DAILY [facility] Stop: 11/17/17 08:59 Last Admin: 09/21/17 09:32 Dose: 81 mg Bacitracin (Baciquent) 0 appl TP DAILY [facility] Stop: 11/17/17 08:59 Last Admin: 09/21/17 09:33 Dose: 1 appl Bisacodyl (Dulcolax 10 Mg Supp) 10 mg RC DAILY PRN PRN Reason: IF MOM INEFFECTIVE Stop: 11/16/17 16:42 Docusate Sodium (Colace) 100 mg PO DAILY [facility] Stop: 11/17/17 08:59 Last Admin: 09/21/17 09:31 Dose: 100 mg Dextrose/Sodium Chloride (D5-0.9%Ns) 1,000 mls @ 75 mls/hr IV .[id number] [facility] Stop: 11/17/17 17:29 Last Admin: 09/21/17 11:03 Dose: 75 mls/hr Ibuprofen (Motrin) 600 mg PO Q8H PRN PRN Reason: PAIN Stop: 11/16/17 16:42 Magnesium Hydroxide (Milk Of Magnesia) 30 ml PO Q72H [facility] Stop: 11/16/17 16:44 Last Admin: 09/20/17 17:25 Dose: 30 ml Senna (Senna) 8.6 mg PO [facility] Stop: 11/16/17 20:59 Last Admin: 09/20/17 21:39 Dose: 8.6 mg Simvastatin (Zocor) 20 mg PO [facility] Stop: 11/16/17 20:59 Last Admin: 09/20/17 21:39 Dose: 20 mg Sodium Phosphate (Fleet Enema) 135 ml RC Q48H PRN PRN Reason: IF DULCOLAX INEFFECTIVE Stop: 11/16/17 16:42 Tramadol HCl (Ultram) 50 mg PO Q6H PRN PRN Reason: PAIN Stop: 11/16/17 16:42 Last Admin: 09/21/17 09:33 Dose: 50 mg Trazodone HCl (Desyrel) 75 mg PO [facility] PRN Reason: Protocol Stop: 11/16/17 20:59 Last Admin: 09/20/17 21:40 Dose: 75 mg Valsartan (Diovan) 80 mg PO [facility] Stop: 11/16/17 20:59 Last Admin: 09/20/17 21:42 Dose: 80 mg Vitamin D (Vitamin D) 1,000 iu PO DAILY [facility] Stop: 11/17/17 08:59 Last Admin: 09/21/17 09:30 Dose: 1,000 iu General: Alert HEENT: Atraumatic, PERRLA Neck: Supple Cardiovascular: Regular rate Abdomen: Bowel sounds, Soft, no Tender, no Hepatomegaly, no Splenomegaly, no Distended, no Mass, no Guarding - Procedures Procedures: Procedures Procedure Code Date COLONOSCOPY AND BIOPSY 66054 09/16/17 EXCISION OF RECTUM, ENDO [id number] 09/16/17 Assessment/Plan - Problem List Patient Problems: All Active Problems TARRY LOOSE STOOL (Acute) Nutritional Asmnt/Malnutr-PDOC - Dietary Evaluation Malnutrition Findings (Please click <Entered> for more info): Nutritional Asmnt/Malnutrition Start: 09/17/17 17: 12 Text: Status: Complete Freq: Document 09/17/17 17:12 ASHLEY (Rec: 09/17/17 17:20 ASHLEY [email or web address]) Nutritional Asmnt/Malnutrition Patient General Information Nutritional Screening High Risk Consult Diagnosis GI bleed Pertinent Medical Hx/Surgical Hx HTN, CAD, DM, CHF, CVA/TIA, dyslipidemia, PUD/GERD, ESRD, seizrue, dementia, encephalopathy, depression Subjective Information Consult received for low skin audra score. Pt seen busy with nurses, not appropriate to interview at time of visit. No diet order at this time. MD ordered clear liquid start at dinner. Per nurse note, pt had colonoscopy ordered. pt had blood in stool noted. Current Diet Order/ Nutrition Support clear liquid Pertinent Medications D5-0.9%ns, colace, senna, vit D Pertinent Labs 09/17 cl 111, ca 8.5 Nutritional Hx/Data Height 1.73 m Height (Calculated Centimeters) 172.7 Current Weight (lbs) 87.543 kg Weight (Calculated Kilograms) 87.5 Weight (Calculated Grams) 33860.3 [place] Body Weight 154 Body Mass Index (BMI) 29.3 Weight Status Overweight GI Symptoms Skin Integrity/Comment: reddened to right buttocks, sacrum, coccyx, pressure area to left buttocks Current %PO Negligible < 25% Estimated Nutritional Goals BEE in Kcals: Adj wt of IBW Calories/Kcals/Kg 25-30 Kcals Calculated 0582-6872 Protein: Adj wt of IBW Protein g/k-1.2 Protein Calculated 74-88 Fluid: ml 1850-2220ml (1ml/kcal) Nutritional Problem 1. Problem Problem altered GI function Etiology GI bleed Signs/Symptoms: pt on clear liquid diet and need for colonoscopy Intervention/Recommendation Comments 1. Continue with current diet as ordered. Recommend Boost Breeze BID to increase nutrition intake. 2. Monitor PO intake, wt, labs and skin integrity 3. F/U as high risk in 2-3 days, 09/19-09/20 Expected Outcomes/Goals Expected Outcomes/Goals 1. PO intake to meet at least 75% of nutritional needs. 2. Wt stability, skin to remain intact, labs to approach WNL.
[2017-09-21] MEDS ORDERED: Potassium Chloride 20 mEq ER Tab PO ONE (12:27)
[2017-09-21 16:40] LABS: ANION GAP 10.2 (7.0-16.0); BUN - UREA NITROGEN 7 mg/dL (7-25); CALCIUM SERUM 8.3 mg/dL (8.6-10.3); CARBON DIOXIDE 25.4 mEq/L (21.0-31.0); CHLORIDE 106 mEq/L (98-107); CREATININE - SERUM 0.7 mg/dL (0.7-1.3); GFR AFRICAN-AMERICAN > 60.0 ml/min (>90); GFR NON AFRICAN-AMERICAN > 60.0 ml/min; GLUCOSE 129 mg/dL (70-105); POTASSIUM SERUM 3.6 mEq/L (3.5-5.1); SODIUM SERUM 138 mEq/L (136-145)
--- NOTE | 2017-09-21 16:59 | Pathology Report ---
[id number] Collection Date: 09/18/2017 Surgeon: Dr. Julianna Hernandez Specimen Description: Rectal polyp Gross Description: Received in formalin is a single gonzalez soft tissue fragment measuring 0.2 cm in greatest dimension. Totally submitted in one cassette. Microscopic Description: The histologic sections show colorectal mucosa with mild chronic inflammation present consisting of lymphocytes and plasma cells. There is no evidence for adenomatous polyp. Diagnosis: Mild nonspecific chronic inflammation, rectal biopsy. [facility]# [id number] [facility]
== END 2017-09-21 18:50 | DRG 244 ==
LOC: ER 12:41 → TELE 18:59 → MSI 09-20 17:12
PROVIDERS: ADMIT Internal Medicine; ATTEND Internal Medicine
PROC: 0DBP8ZX Excision of Rectum, Via Natural or Artificial Opening Endoscopic, Diagnostic (ICD-10-PCS; principal; 2017-09-18)
DX: K57.31 Diverticulosis of large intestine without perforation or abscess with bleeding (principal); G93.40 Encephalopathy, unspecified; I13.2 Hypertensive heart and chronic kidney disease with heart failure and with stage 5 chronic kidney disease, or end stage renal disease; E11.22 Type 2 diabetes mellitus with diabetic chronic kidney disease; N18.6 End stage renal disease; E11.9 Type 2 diabetes mellitus without complications; D64.9 Anemia, unspecified; I50.9 Heart failure, unspecified; F03.90 Unspecified dementia, unspecified severity, without behavioral disturbance, psychotic disturbance, mood disturbance, and anxiety; G40.909 Epilepsy, unspecified, not intractable, without status epilepticus; I49.9 Cardiac arrhythmia, unspecified; I25.2 Old myocardial infarction; I25.10 Atherosclerotic heart disease of native coronary artery without angina pectoris; E78.5 Hyperlipidemia, unspecified; Z86.73 Personal history of transient ischemic attack (TIA), and cerebral infarction without residual deficits; K62.1 Rectal polyp; K64.8 Other hemorrhoids; K21.9 Gastro-esophageal reflux disease without esophagitis; F32.9 Major depressive disorder, single episode, unspecified; R62.7 Adult failure to thrive; E86.0 Dehydration; Z88.0 Allergy status to penicillin; Z87.11 Personal history of peptic ulcer disease
CPT/HCPCS: 36415-UA; 71045-TC; 76857-TC; 80048-TC; 80053-TC; 80061-TC; 81001-TC; 82150-TC; 82550-TC; 82948-90; 83690-TC; 83880-TC; 84443-TC; 84484-TC; 85025-TC; 85610-TC; 86850-TC; 86900-TC; 86901-TC; 93005; 94760; 96374; 96375; C9113; J2405; J2704; J7030; J7042; Z7506; Z7610

== ENCOUNTER 2018-05-06 20:10 | Inpatient (IN) | payer MEDICAID ==
--- NOTE | 2018-05-06 20:27 | ED Physician Chart ---
ED Chief Complaint/HPI - Patient Information Date Seen:: 05/06/18 Time Seen:: 20:15 Chief Complaint:: fever History of Present Illness:: Patient had a temperature of 103 earlier at his extended care facility. He also has some right upper quadrant pain. He was given Tylenol orally and is fever decreased to 100. Allergies:: Allergies Allergy/AdvReac Type Severity Reaction Status Date / Time Penicillins Allergy Verified 09/16/17 13:04 Historian:: Patient Review:: Nurse's Note Reviewed, Transfer documents Reviewed ED Review of Systems - Review of Systems General/Constitutional: Fever Skin: No skin lesions Head: No headache Eyes: No loss of vision ENT: No earache Neck: No neck pain Cardio Vascular: No chest pain, No palpitations Pulmonary: No SOB GI: No nausea, No vomiting, No diarrhea, Pain G/U: Dysuria Musculoskeletal: No bone or joint pain Endocrine: No polyuria Psychiatric: No prior psych history Hematopoietic: No bruising Allergic/Immuno: No urticaria Neurological: No syncope ED Past Medical History - Past Medical History Past Medical History: HTN, DM, PUD/GERD, Other (status post GI bleed; hypertension; diabetes Ariel; right-sided hemiplegia; renal failure; benign prostatic hypertrophy toxic encephalopathy; hyperlipidemia; anxiety disorder; seizures; status post sepsis; anemia; insomnia; atherosclerotic heart disease; dressing heart failure; for vascular disease; cardiomegaly; bronchitis; dysphagia; arthritis; cataracts; major depression; ) Family History: HTN Social History: Care Facility Surgical History: None Psychiatricy History: Depression Medication: Reviewed Family Medical History - Family Member Mother History Unknown: Yes Ethnicity: ED Physical Exam - Physical Examination General/Constitutional: Well-developed, well-nourished, Alert, No distress Head: Atraumatic Eyes: Lids, conjuctiva normal Skin: Nl inspection, No rash ENMT: External ears, nose nl, TM canals nl, Nasal exam nl, Lips, teeth, gums nl Neck: No nuchal rigidity Respiratory: Nl effort/Exclusion, Clear to Auscultation, No Wheeze/Rhonchi/Rales Cardio Vascular: RRR, No murmur, gallop, rubs, NL S1 S2 GI: No organomegaly, No hernia Other GI comments:: Right-sided abdominal tenderness Extremities: No edema Neuro/Psych: Alert/oriented Other Neuro/Psych comments:: Right-sided weakness and drooping right side of mouth Misc: No paraspinal tenderness ED Labs/Radiology/EKG Results - Lab Results Results: Abnormal Lab Results 05/06/18 21:00 WBC 15.2 H RBC 4.83 Hgb 14.4 Hct 42.9 MCV 88.7 MCH 29.8 MCHC Differential 33.6 RDW 13.9 Plt Count 142 L MPV 7.8 Add Manual Diff YES - Radiology Results Results: Chest x-ray showed no acute disease; CT abdomen and pelvis showed diverticulitis ED Assessment - Assessment General Assessment: At 2135 patient's abdomen was soft with no tenderness ED Septic Shock - . Is Septic Shock (SBP<90, OR Lactate>4 mmol\L) present?: No ED Reassessment (Disposition) - Reassessment Reassessment Condition:: Unchanged - Diagnosis Diagnosis:: Diverticulitis - Patient Disposition Admitted to:: Med/Surg Spoke to:: Marco Avendano Admitting Medical Physician:: Marco Avendano Condition at Disposition:: Stable, Unchanged
[2018-05-06 21:17] LABS: EOSINOPHILE ABSOLUTE 0.1 Th/cmm (0.1-0.4); HEMATOCRIT 42.9 % (41.0-60); HEMOGLOBIN 14.4 gm/dL (12-16); LYMPHOCYTE ABSOLUTE 0.6 Th/cmm (1.5-3.0); MEAN CELL VOLUME 88.7 fl (80-99); MEAN CORPUSCULAR HEMOGLOBIN 29.8 pg (27.0-31.0); MEAN CORPUSCULAR HGB CONC 33.6 pg (28.0-36.0); MEAN PLATELET VOLUME 7.8 fl; MONOCYTE ABSOLUTE 0.6 Th/cmm (0.3-1.0); NEUTROPHILE ABSOLUTE 13.9 Th/cmm (1.8-8.0); PLATELET COUNT 142 Th/cmm (150-400); RED BLOOD COUNT 4.83 Mil/cmm (3.80-5.80); RED CELL DISTRIBUTION WIDTH 13.9 % (11.5-20.0)
[2018-05-06 21:23] LABS: WHITE BLOOD COUNT 15.2 Th/cmm (4.8-10.8)
[2018-05-06 21:34] LABS: ANION GAP 11.8 (7.0-16.0); BUN - UREA NITROGEN 16 mg/dL (7-25); CALCIUM SERUM 9.3 mg/dL (8.6-10.3); CHLORIDE 100 mEq/L (98-107); CREATININE - SERUM 0.9 mg/dL (0.7-1.3); GLUCOSE 111 mg/dL (70-105); POTASSIUM SERUM 3.8 mEq/L (3.5-5.1); SODIUM SERUM 135 mEq/L (136-145)
[2018-05-06 21:42] LABS: BAND NEUTROPHILE 0 % (0-10); LYMPHOCYTE 4 % (20-50); MONOCYTE 4 % (2-10); NEUTROPHILS 92 % (40-80)
[2018-05-06] MEDS ORDERED: Sodium Chloride 0.9% 1,000 ML IV ONE (21:43)
[2018-05-06] MEDS ORDERED: Ciprofloxacin 400mg Premix PB 400 MG/200 ML BAG IV ONE ×2 (21:44→21:49)
[2018-05-06] MEDS ORDERED: metroNIDAZOLE 500mg/NS 100mL 500 MG/100 ML BAG IV ONE ×2 (21:46→23:19)
[2018-05-06] MEDS ORDERED: Acetaminophen 500 MG TAB PO ONE (21:54)
[2018-05-06] MEDS ORDERED: Acetaminophen 500 MG TAB ONE (21:56)
[2018-05-07 01:47] VITALS: BP 126/85
[2018-05-07] MEDS: D5-0.45NS 1,000 ML IV SCH (02:00)
[2018-05-07 06:07] LABS: HEMATOCRIT 39.8 % (41.0-60); HEMOGLOBIN 13.5 gm/dL (12-16); MEAN CELL VOLUME 89.2 fl (80-99); MEAN CORPUSCULAR HEMOGLOBIN 30.3 pg (27.0-31.0); PLATELET COUNT 134 Th/cmm (150-400); RED BLOOD COUNT 4.46 Mil/cmm (3.80-5.80); RED CELL DISTRIBUTION WIDTH 13.9 % (11.5-20.0)
[2018-05-07 06:21] LABS: AMYLASE SERUM 60 U/L (29-103); ANION GAP 10.1 (7.0-16.0); BUN - UREA NITROGEN 13 mg/dL (7-25); CALCIUM SERUM 8.7 mg/dL (8.6-10.3); CARBON DIOXIDE 28.6 mEq/L (21.0-31.0); CHLORIDE 104 mEq/L (98-107); CHOLESTEROL 98 mg/dL (<200); CREATININE - SERUM 0.8 mg/dL (0.7-1.3); GLUCOSE 110 mg/dL (70-105); HDL -HIGH DENSITY LIPOPROTEIN 39 mg/dL (23-92); LIPASE 35 U/L (11-82); POTASSIUM SERUM 3.7 mEq/L (3.5-5.1); SODIUM SERUM 139 mEq/L (136-145); TRIGLYCERIDES 59 mg/dL (<150)
[2018-05-07 06:55] LABS: WHITE BLOOD COUNT 16.7 Th/cmm (4.8-10.8)
[2018-05-07 07:03] LABS: BAND NEUTROPHILE 3 % (0-10); BASOPHIL 0 % (0-3); EOSINOPHIL 0 % (0-5); LYMPHOCYTE 5 % (20-50); MONOCYTE 2 % (2-10); NEUTROPHILS 90 % (40-80)
--- NOTE | 2018-05-07 08:38 | Diagnostic Imaging Report ---
CT abdomen and pelvis without intravenous contrast Indication: Right-sided Abdominal pain Comparison: CT abdomen and pelvis 09/17/2017, Technique: Axial images were obtained from the lung bases to the bilateral proximal femurs without IV contrast. Coronal reconstructions were made. total DLP: 861, CTDI 17 FINDINGS: Hypoventilatory atelectatic changes of the lung bases are noted. Evaluation of the solid organs is limited due to lack of IV contrast. No evidence of focal hepatic lesions. No focal splenic, intrahepatic, or adrenal lesions. Nonspecific bilateral perinephric inflammatory changes are noted. No hydronephrosis or nephrolithiasis. There is increased abnormal density seen along the anterior aspect of the urinary bladder wall with fluid level noted. Diverticulosis is noted without evidence of diverticulitis. Mildly distended fluid-filled stomach is noted. No appendicitis. No free fluid or free air. Moderate size right fat-containing inguinal hernia is noted. Degenerative changes of the spine are noted. IMPRESSION: Diverticulosis without evidence of diverticulitis. No evidence of acute appendicitis. Mildly distended stomach. Abnormal increased density along the anterior aspect of the urinary bladder with fluid level. Please correlate with clinical findings and UA levels. A follow-up urinary bladder ultrasound or possibly cystoscopy may be obtained for further assessment of this finding. Moderate-sized fat-containing right inguinal hernia.
--- NOTE | 2018-05-07 08:47 | Diagnostic Imaging Report ---
CHEST X-RAY: AP view INDICATION: Pneumonia COMPARISON: Chest x-ray 09/16/2017 FINDINGS: Chronic changes are seen with increased left basal lung markings. No pleural effusions. Cardiomegaly is noted. Degenerative changes of the spine are noted. IMPRESSION: Left basal atelectasis versus infiltrate. Clinical correlation and follow-up recommended Cardiomegaly.
[2018-05-07] MEDS ORDERED: Hydrocodone/APAP 5mg/325mg Tab ONE (09:00)
[2018-05-07] MEDS ORDERED: Hydrocodone/APAP 5mg/325mg Tab PO ONE (09:30)
[2018-05-07] MEDS: metroNIDAZOLE 500mg/NS 100mL 500 MG/100 ML BAG IV SCH ×2 (10:02→18:06)
[2018-05-07] MEDS ORDERED: Acetaminophen 500 MG TAB PO PRN (10:13)
[2018-05-07] MEDS ORDERED: Maalox 30 mL Cup PO PRN (10:13)
[2018-05-07] MEDS ORDERED: Fleet Enema 135 mL RC PRN (10:13)
[2018-05-07] MEDS ORDERED: Hydrocodone/APAP 5mg/325mg Tab PO PRN (10:13)
[2018-05-07] MEDS ORDERED: Albuterol Nebulizer 2.5mg/3mL HHN PRN (10:13)
[2018-05-07] MEDS: Levofloxacin 500mg/100mL 500 MG/100 ML BAG IV SCH (11:09)
[2018-05-07] MEDS: Magnesium Hydroxide (MOM) 30 mL UDC PO SCH (12:57)
[2018-05-07] MEDS: Multivitamin Tab PO SCH (12:58)
[2018-05-07] MEDS: Aspirin 81mg Chewable Tab PO SCH (12:58)
[2018-05-07] MEDS ORDERED: VTE Chemical Prophylaxis Screen/Admission MC PRN (13:03)
[2018-05-07] MEDS ORDERED: Probiotic Screen MC PRN (13:15)
--- NOTE | 2018-05-07 16:38 | History & Physical ---
ADMIT DATE: 05/07/2018 HISTORY OF PRESENT ILLNESS: The patient came to the Emergency Room at [facility] on 05/06 at 2015. The patient was sent from [place]. The patient was having fever, chills, rigors, temperature up to 103 and the patient was complaining of right upper quadrant pain. The patient was given Tylenol with some relief. The patient is known to have history of hypertension, diabetes, peptic ulcer disease, history of GI bleeding, history of right-sided hemiplegia, history of CVA, history of renal failure, history of prostate enlargement, history of encephalopathy, seizures, and the patient was evaluated by Dr. Burroughs and admitted. PAST MEDICAL HISTORY: As enumerated above. PHYSICAL EXAMINATION: GENERAL: The patient is awake, alert, afebrile, otherwise, not in acute distress. VITAL SIGNS: Stable. HEAD: Normal. ENT: Normal. LUNGS: Clear. CARDIOVASCULAR SYSTEM: S1, S2 heard. ABDOMEN: Soft, bilateral abdominal tenderness noted. Left lower quadrant tenderness noted. Right upper quadrant tenderness noted. He had a CAT scan showed diverticulosis and diverticulitis. NEUROLOGY: The patient had right-sided weakness and drooping on the right side. DIAGNOSES: Abdominal pain, diverticulitis, fever, sepsis, history of right upper abdominal pain, rule out cholecystitis, history of cerebrovascular accident, history of right-sided weakness, history of hypertension, history of gastroesophageal reflux disease, history of gastrointestinal bleeding in the past, history of renal failure in the past, history of benign enlargement of the prostate, toxic metabolic encephalopathy, history of seizures, atherosclerotic heart disease, history of cardiomegaly, dysphagia, cataract, major depression. PLAN: I will follow the patient along with consult and I will call Dr. Miguel Amaro to see the patient. We will also have Dr. Tidwell to see the patient and we will also have GI doctor to see the patient. I will follow the patient. JOB# [id number]
[2018-05-07 16:56] LABS: INF A SCREEN NEG FOR INF A; INF B SCREEN NEG FOR INF B
[2018-05-07] MEDS ORDERED: Non-Formulary Item 1 EA (Duloxetine Hcl [Cymbalta] 20 MG) PO SCH (17:00)
[2018-05-07] MEDS: Polyvinyl Alcohol Ophth Soln 15 mL Bottle EACH EYE SCH (18:06)
[2018-05-07 18:25] LABS: URINE SOURCE CLEAN C
[2018-05-07 18:38] LABS: URINE BILIRUBIN NEGATIVE (NEGATIVE); URINE BLOOD NEGATIVE (NEGATIVE); URINE GLUCOSE (UA) NEGATIVE (NEGATIVE); URINE KETONE NEGATIVE (NEGATIVE); URINE LEUKOCYTE ESTERASE NEGATIVE (NEGATIVE); URINE NITRATE NEGATIVE (NEGATIVE); URINE PH 6.5 (4.6 - 8.0); URINE PROTEIN NEGATIVE (NEGATIVE)
[2018-05-07 18:40] LABS: URINE CLARITY CLEAR (CLEAR); URINE COLOR YELLOW; URINE MICROSCOPIC INDICATED? YES
[2018-05-07 18:46] LABS: URINE BACTERIA FEW /hpf (NONE SEEN); URINE EPITHELIAL CELLS FEW /lpf (FEW); URINE RBC 0-2 /hpf (0-5); URINE WBC 0-2 /hpf (0-5)
[2018-05-07] MEDS ORDERED: Non-Formulary Item 1 EA (Melatonin [Melatonin] 6 MG) PO SCH (21:00)
[2018-05-07] MEDS: Atorvastatin Calcium 10 MG TAB PO SCH (22:29)
[2018-05-08] MEDS: metroNIDAZOLE 500mg/NS 100mL 500 MG/100 ML BAG IV SCH ×3 (00:10→15:34)
--- NOTE | 2018-05-08 05:05 | Consultation ---
DATE OF CONSULTATION: 05/07/2018 REFERRING PHYSICIAN: Dr. Avendano. REASON FOR CONSULTATION: Abdominal pain, pneumonia, diverticulitis. HISTORY OF PRESENT ILLNESS: The patient is a 72-year-old male with past medical history of GI bleeding, right-sided hemiplegia with CVA, renal failure, BPH, ____ seizure disorder, brought to the [facility] from [facility] for fever of 103 degrees Fahrenheit associated with chills and rigors. The patient also complained of right upper quadrant abdominal pain. On initial evaluation, his temperature was 101.7 degrees Fahrenheit and WBC count was 15,200. CT scan of the abdomen and pelvis revealed diverticulosis without evidence of diverticulitis, no evidence of acute appendicitis, mildly distended stomach, increased density along the anterior aspect of the urinary bladder with fluid level. Chest x-ray showed left basal atelectasis versus infiltrate, and cardiomegaly. So, Levaquin IV and Flagyl IV were started and ID consult was called for further antibiotic management. PAST MEDICAL HISTORY: Seizure disorder, BPH, CVA with right-sided hemiplegia, history of GI bleeding, peptic ulcer disease, diabetes mellitus type 2, hypertension, and history of encephalopathy. ALLERGIES: NKDA. ALLERGIES: THE PATIENT IS ALLERGIC TO PENICILLIN. MEDICATIONS: As per medication reconciliation sheet. Antibiotic-white, the patient is on Levaquin and Flagyl. SOCIAL HISTORY: The patient lives at [facility]. No history of smoking, alcohol or drug use. FAMILY HISTORY: Not available. REVIEW OF SYSTEMS: Limited. GENERAL: The patient had fever with chills and rigor. HEENT: No diplopia, no photophobia, no sore throat. RESPIRATORY: No cough, no shortness of breath. CARDIOVASCULAR: No chest pain or palpitation. GASTROINTESTINAL: No nausea, no vomiting, no diarrhea, no constipation. The patient has abdominal pain on presentation. GENITOURINARY: Dysuria. MUSCULOSKELETAL: No muscle pain, no joint pain. ENDOCRINE: No polyuria. HEMATOPOIETIC: No bruising. CENTRAL NERVOUS SYSTEM: No headache, no dizziness, no focal weakness. PHYSICAL EXAMINATION: VITAL SIGNS: Current vital signs show temperature is 98.6 degrees Fahrenheit, T-max is 101.7 degrees Fahrenheit, pulse 64, respirations 20, blood pressure 115/61. GENERAL: The patient is comfortable, lying in the bed, not in acute distress. HEENT: Head is normocephalic, atraumatic. Oral cavity is moist, pink tongue. Eyes: Pallor is present, no icterus. PERRLA, EOMI. NECK: Supple. No JVD, no carotid bruit. Trachea is in the midline. CHEST: Bilateral breath sounds. No crackles or wheezing. HEART: S1 and S2 within normal limits. Regular rhythm. No murmur, no gallop. ABDOMEN: Soft, nontender, nondistended. Bowel sounds present. EXTREMITIES: No cyanosis, no clubbing, no edema. NEUROLOGIC: Alert, awake, and oriented x 3. DIAGNOSTIC DATA: Current lab shows WBC 16,700, hemoglobin 13.5, hematocrit 39.9, platelets are 134,000, neutrophils 90%. Sodium 139, potassium 3.7, chloride 104, bicarbonate is 29, BUN is 13, creatinine is 0.8, glucose is 110. Lactic acid was ____. Urinalysis showed clear urine with WBC's 0-2, negative nitrite, negative leukocyte esterase. Influenza A and B is negative. Chest x-ray shows left lower lobe atelectasis versus infiltrate. CT scan of abdomen and pelvis showed no evidence of any acute abnormality, mildly distended stomach, and diverticulosis without evidence of diverticulitis, fluid level in urinary bladder. IMPRESSION: 1. Sepsis. 2. Abdominal pain, resolved. 3. Left lower lobe pneumonia. RECOMMENDATIONS: Continue Levaquin and Flagyl and see the outcome. Thank you, Dr. Avendano, for involving me in taking care of this patient. JOB# [id number]
[2018-05-08 05:10] LABS: ALB/GLOB RATIO 1.4 (1.0-1.8); ALBUMIN 3.5 gm/dL (4.2-5.5); BILIRUBIN,DIRECT 0.17 mg/dL (0.0-0.2); BILIRUBIN,TOTAL 0.6 mg/dL (0.3-1.0)
[2018-05-08] MEDS: D5-0.45NS 1,000 ML IV SCH (05:35)
[2018-05-08] MEDS: Lactobacillus Rhamnosus GG 15 Billion CFU CAP.SPRINK PO SCH (09:32)
[2018-05-08] MEDS: Multivitamin Tab PO SCH (09:32)
[2018-05-08] MEDS: Aspirin 81mg Chewable Tab PO SCH (09:33)
[2018-05-08] MEDS: Levofloxacin 500mg/100mL 500 MG/100 ML BAG IV SCH (09:37)
[2018-05-08] MEDS: Polyvinyl Alcohol Ophth Soln 15 mL Bottle EACH EYE SCH ×2 (09:38→17:05)
[2018-05-08] MEDS: Atorvastatin Calcium 10 MG TAB PO SCH (21:19)
--- NOTE | 2018-05-08 23:09 | Infectious Disease Prog Note ---
Infectious Disease Subjective - Review of Systems Service Date: 05/08/18 Subjective: Doing well, no fever. Infectious Disease Objective - Results Result Diagrams: 05/07/18 05:30 05/07/18 05:30 Recent Labs: Laboratory Last Values WBC 16.7 Th/cmm (4.8-10.8) H 05/07/18 05:30 RBC 4.46 Mil/cmm (3.80-5.80) 05/07/18 05:30 Hgb 13.5 gm/dL (12-16) 05/07/18 05:30 Hct 39.8 % (41.0-60) L 05/07/18 05:30 MCV 89.2 fl (80-99) 05/07/18 05:30 MCH 30.3 pg (27.0-31.0) 05/07/18 05:30 MCHC Differential 34.0 pg (28.0-36.0) 05/07/18 05:30 RDW 13.9 % (11.5-20.0) 05/07/18 05:30 Plt Count 134 Th/cmm (150-400) L 05/07/18 05:30 MPV 8.0 fl 05/07/18 05:30 Add Manual Diff YES 05/07/18 05:30 Band Neutrophils % 3 % (0-10) 05/07/18 05:30 Neutrophils (Manual) 90 % (40-80) H 05/07/18 05:30 Lymphocytes 5 % (20-50) L 05/07/18 05:30 Monocytes 2 % (2-10) 05/07/18 05:30 Eosinophils 0 % (0-5) 05/07/18 05:30 Basophils 0 % (0-3) 05/07/18 05:30 Sodium 139 mEq/L (136-145) 05/07/18 05:30 Potassium 3.7 mEq/L (3.5-5.1) 05/07/18 05:30 Chloride 104 mEq/L (98-107) 05/07/18 05:30 Carbon Dioxide 28.6 mEq/L (21.0-31.0) 05/07/18 05:30 Anion Gap 10.1 (7.0-16.0) 05/07/18 05:30 BUN 13 mg/dL (7-25) 05/07/18 05:30 Creatinine 0.8 mg/dL (0.7-1.3) 05/07/18 05:30 Est GFR ( Amer) TNP 05/07/18 05:30 Est GFR (Non-Af Amer) TNP 05/07/18 05:30 BUN/Creatinine Ratio 16.3 05/07/18 05:30 Glucose 110 mg/dL (70-105) H 05/07/18 05:30 Whole Bld Lactic Acid 1.95 mmol/L (0.60-1.99) 05/06/18 21:00 Calcium 8.7 mg/dL (8.6-10.3) 05/07/18 05:30 Total Bilirubin 0.6 mg/dL (0.3-1.0) 05/08/18 04:40 Direct Bilirubin 0.17 mg/dL (0.0-0.2) 05/08/18 04:40 AST 22 U/L (13-39) 05/08/18 04:40 ALT 17 U/L (7-52) 05/08/18 04:40 Alkaline Phosphatase 42 U/L (34-104) 05/08/18 04:40 Total Protein 6.0 gm/dL (6.0-8.3) 05/08/18 04:40 Albumin 3.5 gm/dL (4.2-5.5) L 05/08/18 04:40 Globulin 2.5 gm/dL 05/08/18 04:40 Albumin/Globulin Ratio 1.4 (1.0-1.8) 05/08/18 04:40 Triglycerides 59 mg/dL (<150) 05/07/18 05:30 Cholesterol 98 mg/dL (<200) 05/07/18 05:30 LDL Cholesterol Direct 55 mg/dL (75-193) L 05/07/18 05:30 HDL Cholesterol 39 mg/dL (23-92) 05/07/18 05:30 Amylase 60 U/L (29-103) 05/07/18 05:30 Lipase 35 U/L (11-82) 05/07/18 05:30 TSH 1.30 uIU/ml (0.34-5.60) 05/07/18 05:30 Urine Source CLEAN C 05/07/18 18:24 Urine Color YELLOW 05/07/18 18:24 Urine Clarity CLEAR (CLEAR) 05/07/18 18:24 Urine pH 6.5 (4.6 - 8.0) 05/07/18 18:24 Ur Specific [place] 1.010 (1.005-1.030) 05/07/18 18:24 Urine Protein NEGATIVE mg/dL (NEGATIVE) 05/07/18 18:24 Urine Glucose (UA) NEGATIVE mg/dL (NEGATIVE) 05/07/18 18:24 Urine Ketones NEGATIVE mg/dL (NEGATIVE) 05/07/18 18:24 Urine Blood NEGATIVE (NEGATIVE) 05/07/18 18:24 Urine Nitrate NEGATIVE (NEGATIVE) 05/07/18 18:24 Urine Bilirubin NEGATIVE (NEGATIVE) 05/07/18 18:24 Urine Urobilinogen 1.0 E.U./dL (0.2 - 1.0) 05/07/18 18:24 Ur Leukocyte Esterase NEGATIVE (NEGATIVE) 05/07/18 18:24 Urine RBC 0-2 /hpf (0-5) H 05/07/18 18:24 Urine WBC 0-2 /hpf (0-5) 05/07/18 18:24 Ur Epithelial Cells FEW /lpf (FEW) 05/07/18 18:24 Urine Bacteria FEW /hpf (NONE SEEN) 05/07/18 18:24 Urine Mucus FEW /lpf (FEW) 05/07/18 18:24 Influenza A (Rapid) NEG FOR INF A 05/07/18 16:30 Influenza B (Rapid) NEG FOR INF B 05/07/18 16:30 - Physical Exam Vitals and I&O: Vital Signs Temp 98.4 F 05/08/18 20:00 Pulse 69 05/08/18 21:28 Resp 18 05/08/18 20:00 BP 108/57 05/08/18 21:28 Pulse Ox 98 05/08/18 20:00 Intake & Output 05/08/18 05/08/18 05/09/18 06:59 18:59 06:59 Intake Total 972.5 360 Balance 972.5 360 Weight (lbs) 102.875 kg Intake: Intake, IV Amount 972.5 300 D5-0.45NS 1,000 ml @ 50 772.5 mls/hr IV .Q20H [facility] Rx#: [id number] Levofloxacin 500mg/100mL 100 500 mg In 100 ml @ 100 mls/hr IV Q24HR [facility] Rx#: [id number] metroNIDAZOLE 500mg/NS 200 200 100mL 500 mg In 100 ml @ 100 mls/hr IV Q8H [facility] Rx# :[id number] Oral 60 Other: # Voids 2 # Bowel Movements 0 Weight Source Bedscale Active Medications: Current Medications Acetaminophen (Tylenol) 650 mg PO Q4HR PRN PRN Reason: MILD PAIN OR TEMP >101 Stop: 07/06/18 10:12 Last Admin: 05/08/18 15:33 Dose: 650 mg Acetaminophen/Hydrocodone Bitart (Humble 5mg/325mg) 1 tab PO Q4HR PRN PRN Reason: Pain (Severe) Stop: 07/06/18 10:12 Last Admin: 05/07/18 17:16 Dose: 1 tab Al Hydrox/Mg Hydrox/Simethicone (Maalox) 30 ml PO Q6H PRN PRN Reason: Heartburn Stop: 07/06/18 10:12 Albuterol Sulfate (Albuterol 2.5mg/3ml Neb Ud) 2.5 mg HHN Q6HR PRN PRN Reason: Shortness of Breath Stop: 07/06/18 10:12 Amlodipine Besylate (Norvasc) 7.5 mg PO DAILY [facility] Stop: 07/07/18 08:59 Last Admin: 05/08/18 09:33 Dose: 7.5 mg Artificial Tears (Artificial Tears Ophth Soln) 1 drop EACH EYE BID [facility] Stop: 07/06/18 16:59 Last Admin: 05/08/18 17:05 Dose: 1 drop Aspirin (Aspirin Chewable) 81 mg PO DAILY [facility] Stop: 07/06/18 11:59 Last Admin: 05/08/18 09:33 Dose: 81 mg Atorvastatin Calcium (Lipitor) 5 mg PO HS [facility] Stop: 07/06/18 20:59 Last Admin: 05/08/18 21:19 Dose: 5 mg Bisacodyl (Dulcolax 10 Mg Supp) 10 mg RC DAILY PRN PRN Reason: IF MOM INEFFECTIVE Stop: 07/06/18 10:12 Cholecalciferol (Vitamin D3) 1,000 iu PO DAILY [facility] Stop: 07/06/18 11:59 Last Admin: 05/08/18 09:33 Dose: 1,000 iu Docusate Sodium (Colace) 100 mg PO DAILY [facility] Stop: 07/06/18 11:59 Last Admin: 05/08/18 09:33 Dose: 100 mg Duloxetine HCl (Cymbalta) 30 mg PO BID [facility]; Protocol Stop: 07/06/18 16:59 Last Admin: 05/08/18 17:05 Dose: 30 mg Gabapentin (Neurontin) 300 mg PO BID [facility] Stop: 07/06/18 16:59 Last Admin: 05/08/18 17:05 Dose: 300 mg Heparin Sodium (Porcine) (Heparin) 5,000 units SUBQ Q12H [facility] Stop: 07/06/18 20:59 Last Admin: 05/08/18 22:00 Dose: Not Given Dextrose/Sodium Chloride (D5-0.45ns) 1,000 mls @ 50 mls/hr IV .Q20H [facility] Stop: 07/06/18 01:59 Last Admin: 05/08/18 05:35 Dose: 50 mls/hr Levofloxacin (Levaquin Pb) 500 mg in 100 mls @ 100 mls/hr IV Q24HR [facility] Stop: 07/06/18 08:59 Last Infusion: 05/08/18 17:05 Dose: Infused Metronidazole (Flagyl) 500 mg in 100 mls @ 100 mls/hr IV Q8H [facility] Stop: 07/06/18 07:59 Last Infusion: 05/08/18 17:02 Dose: Infused Lactobacillus Rhamnosus (Culturelle 15b) 1 each PO DAILY [facility] Stop: 07/07/18 08:59 Last Admin: 05/08/18 09:32 Dose: 1 each Losartan Potassium (Cozaar) 50 mg PO HS [facility] Stop: 07/06/18 20:59 Last Admin: 05/08/18 21:28 Dose: Not Given Magnesium Hydroxide (Milk Of Magnesia) 30 ml PO Q72H [facility] Stop: 07/06/18 10:14 Last Admin: 05/07/18 12:57 Dose: 30 ml Miscellaneous (Vte Chemical Prophylaxis Screen/ Admission) 1 ea PRN PRN PRN Reason: PROTOCOL Stop: 07/06/18 13:02 Miscellaneous (Probiotic Screen) 1 ea PRN PRN PRN Reason: PROTOCOL Stop: 07/06/18 13:14 Multivitamins/Vitamin C (Theragran) 1 tab PO DAILY [facility] Stop: 07/06/18 11:59 Last Admin: 05/08/18 09:32 Dose: 1 tab Senna (Senna) 8.6 mg PO HS [facility] Stop: 07/06/18 20:59 Last Admin: 05/08/18 21:21 Dose: 8.6 mg Sodium Phosphate (Fleet Enema) 135 ml RC Q48H PRN PRN Reason: IF DULCOLAX INEFFECTIVE Stop: 07/06/18 10:12 Tramadol HCl (Ultram) 50 mg PO Q6H PRN PRN Reason: MOD PAIN Stop: 07/06/18 10:12 Last Admin: 05/07/18 17:15 Dose: 50 mg Trazodone HCl (Desyrel) 75 mg PO HS [facility]; Protocol Stop: 07/06/18 20:59 Last Admin: 05/08/18 21:24 Dose: 75 mg General: no acute distress, well developed, well nourished HEENT: atraumatic, normocephalic, PERRLA, EOMI Neck: supple, no thyromegaly Cardiovascular: S1S2, regular Lungs: clear to auscultation bilaterally, clear to percussion Abdomen: soft, bowel sounds, no tender, no distended Extremities: no cyanosis, no clubbing, no edema Neurological: awake, alert, oriented - Procedures Procedures: Procedures Procedure Code Date COLONOSCOPY AND BIOPSY 28591 09/16/17 EXCISION OF RECTUM, ENDO, DIAGN [id number] 09/16/17 Infectious Disease Assmt/Plan - Assessment Assessment: 1. sepsis. 2. pneumonia <LLL 3. abdominal pain resolved/ - Plan Plan: Continue Levaquin and flagyl. Nutritional Asmnt/Malnutr-PDOC - Dietary Evaluation Malnutrition Findings (Please click <Entered> for more info): Nutritional Asmnt/Malnutrition Start: 05/07/18 15: 14 Text: Status: Complete Freq: Protocol: Document 05/07/18 15:17 ROSY (Rec: 05/07/18 15:36 [email or web address] [id number]) Nutritional Asmnt/Malnutrition Patient General Information Nutritional Screening High Risk Consult Diagnosis diverticulitis Pertinent Medical Hx/Surgical Hx HTN, DM, PUD/GERD, s/p GI bleed, right sided hemiplegia, renal failure, BPH, toxic encephalopathy, hyperlipidemia , anxiety disorder, seizures, s/p sepsis, anemia, insomnia, atherosclerotic heart disease, heart failure, vascular disease, cardiomegaly, bronchitis, dysphagia, arthritis, cataracts, major depression Subjective Information Received diet consult for right buttocks wound. Pt eating lunch at time of visit. 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 Pt c/o meat not pureed enough; offered an additional portion of pureed meat (liquid-like) and pt was satisfied. Pt finished 90-100% of lunch and able to feed by himself. Current Diet Order/ Nutrition Support Pureed, BERTHA, CCHO Pertinent Medications norvasc, lipitor, D5-0.45ns, vit D3, colace, heparin, culturelle, levaquin, theragran, senna Pertinent Labs 05/07: Na 139, glucose 110 05/06: Na 135, glucose 111 Nutritional Hx/Data Height 1.73 m Height (Calculated Centimeters) 172.7 Current Weight (lbs) 102.739 kg Weight (Calculated Kilograms) 102.7 Weight (Calculated Grams) 207466.7 [place] Body Weight 154 lb Body Mass Index (BMI) 34.4 Weight Status Obese GI Symptoms GI Symptoms None Last BM none noted Difficult in: None Food Allergies No Skin Integrity/Comment: right buttocks wound, non- pitting 2+ edema to right lower extremity, audra 13 Estimated Nutritional Goals BEE in Kcals: Adj wt of IBW Calories/Kcals/Kg 23-27 (based on adj wt 78.2 kg ) Kcals Calculated [id number] Protein: Adj wt of IBW Protein g/k.8-1 Protein Calculated 63-78 g Fluid: ml 8665-3333 (1 ml/kcal) Nutritional Problem 1. Problem Problem Altered nutrition related lab value Etiology hyperglycemia, endocrine dysfunction Signs/Symptoms: glucose 110 Malnutrition Alert Is there a minimum of two criteria No selected? Query Text:Check all the applicable criteria. A minimum of two criteria are recommended for diagnosis of either severe or non-severe malnutrition. Malnutrition Related to Morbid Obesity Malnutrition related to morbid obesity No Intervention/Recommendation Comments 1. Continue with pureed, BERTHA, CCHO diet as ordered d/t elevated blood glucose and presence of edema 2. Monitor PO intake, wt, skin , and nutrition related labs 3. F/U as moderate risk in 3-5 days, 05/10-05/12 Expected Outcomes/Goals Expected Outcomes/Goals 1. PO intake to meet at least 75% of all meals 2. Wt stability, skin integrity to improve, nutrition related labs to approach normal limits Reviewed by Kaylie Cristobal RD
[2018-05-09] MEDS: metroNIDAZOLE 500mg/NS 100mL 500 MG/100 ML BAG IV SCH ×3 (00:51→15:15)
[2018-05-09] MEDS: D5-0.45NS 1,000 ML IV SCH (03:49)
[2018-05-09 06:02] LABS: % BASOPHILS 0.8 % (0.0-2.0); % EOSINOPHILS 4.2 % (0.0-5.0); % LYMPHOCYTES 16.3 % (20.0-50.0); % MONOCYTES 10.4 % (2.0-10.0); % NEUTROPHILS 68.3 % (40.0-80.0); BASOPHILE ABSOLUTE 0.1 Th/cumm (0-0.2); EOSINOPHILE ABSOLUTE 0.3 Th/cmm (0.1-0.4); HEMATOCRIT 42.5 % (41.0-60); HEMOGLOBIN 14.1 gm/dL (12-16); LYMPHOCYTE ABSOLUTE 1.2 Th/cmm (1.5-3.0); MEAN CELL VOLUME 89.2 fl (80-99); MEAN CORPUSCULAR HEMOGLOBIN 29.6 pg (27.0-31.0); MEAN CORPUSCULAR HGB CONC 33.1 pg (28.0-36.0); MEAN PLATELET VOLUME 8.5 fl; MONOCYTE ABSOLUTE 0.7 Th/cmm (0.3-1.0); NEUTROPHILE ABSOLUTE 4.9 Th/cmm (1.8-8.0); PLATELET COUNT 144 Th/cmm (150-400); RED BLOOD COUNT 4.77 Mil/cmm (3.80-5.80); RED CELL DISTRIBUTION WIDTH 13.8 % (11.5-20.0); WHITE BLOOD COUNT 7.2 Th/cmm (4.8-10.8)
[2018-05-09 06:04] LABS: BUN - UREA NITROGEN 10 mg/dL (7-25); CALCIUM SERUM 8.9 mg/dL (8.6-10.3); CHLORIDE 103 mEq/L (98-107); GLUCOSE 121 mg/dL (70-105); POTASSIUM SERUM 3.6 mEq/L (3.5-5.1); SODIUM SERUM 137 mEq/L (136-145)
[2018-05-09] MEDS: Aspirin 81mg Chewable Tab PO SCH (08:35)
[2018-05-09] MEDS: Lactobacillus Rhamnosus GG 15 Billion CFU CAP.SPRINK PO SCH (08:35)
[2018-05-09] MEDS: Polyvinyl Alcohol Ophth Soln 15 mL Bottle EACH EYE SCH ×2 (08:35→16:06)
[2018-05-09] MEDS: Multivitamin Tab PO SCH (08:36)
--- NOTE | 2018-05-09 08:44 | GI Progress Note ---
Subjective - Review of Systems Service Date: 05/09/18 Subjective: FEELS BETTER. NO MORE ABD PAIN. FEELS CONSTIPATED. Objective - Results Result Diagrams: 05/09/18 04:55 05/09/18 04:55 Recent Labs: Laboratory Last Values WBC 7.2 Th/cmm (4.8-10.8) 05/09/18 04:55 RBC 4.77 Mil/cmm (3.80-5.80) 05/09/18 04:55 Hgb 14.1 gm/dL (12-16) 05/09/18 04:55 Hct 42.5 % (41.0-60) 05/09/18 04:55 MCV 89.2 fl (80-99) 05/09/18 04:55 MCH 29.6 pg (27.0-31.0) 05/09/18 04:55 MCHC Differential 33.1 pg (28.0-36.0) 05/09/18 04:55 RDW 13.8 % (11.5-20.0) 05/09/18 04:55 Plt Count 144 Th/cmm (150-400) L 05/09/18 04:55 MPV 8.5 fl 05/09/18 04:55 Add Manual Diff YES 05/07/18 05:30 Neutrophils % 68.3 % (40.0-80.0) 05/09/18 04:55 Band Neutrophils % 3 % (0-10) 05/07/18 05:30 Lymphocytes % 16.3 % (20.0-50.0) L 05/09/18 04:55 Monocytes % 10.4 % (2.0-10.0) H 05/09/18 04:55 Eosinophils % 4.2 % (0.0-5.0) 05/09/18 04:55 Basophils % 0.8 % (0.0-2.0) 05/09/18 04:55 Neutrophils (Manual) 90 % (40-80) H 05/07/18 05:30 Lymphocytes 5 % (20-50) L 05/07/18 05:30 Monocytes 2 % (2-10) 05/07/18 05:30 Eosinophils 0 % (0-5) 05/07/18 05:30 Basophils 0 % (0-3) 05/07/18 05:30 Sodium 137 mEq/L (136-145) 05/09/18 04:55 Potassium 3.6 mEq/L (3.5-5.1) 05/09/18 04:55 Chloride 103 mEq/L (98-107) 05/09/18 04:55 Carbon Dioxide 28.6 mEq/L (21.0-31.0) 05/07/18 05:30 Anion Gap 10.1 (7.0-16.0) 05/07/18 05:30 BUN 10 mg/dL (7-25) 05/09/18 04:55 Creatinine 0.8 mg/dL (0.7-1.3) 05/07/18 05:30 Est GFR ( Amer) TNP 05/07/18 05:30 Est GFR (Non-Af Amer) TNP 05/07/18 05:30 BUN/Creatinine Ratio 16.3 05/07/18 05:30 Glucose 121 mg/dL (70-105) H 05/09/18 04:55 Whole Bld Lactic Acid 1.95 mmol/L (0.60-1.99) 05/06/18 21:00 Calcium 8.9 mg/dL (8.6-10.3) 05/09/18 04:55 Total Bilirubin 0.6 mg/dL (0.3-1.0) 05/08/18 04:40 Direct Bilirubin 0.17 mg/dL (0.0-0.2) 05/08/18 04:40 AST 22 U/L (13-39) 05/08/18 04:40 ALT 17 U/L (7-52) 05/08/18 04:40 Alkaline Phosphatase 42 U/L (34-104) 05/08/18 04:40 Total Protein 6.0 gm/dL (6.0-8.3) 05/08/18 04:40 Albumin 3.5 gm/dL (4.2-5.5) L 05/08/18 04:40 Globulin 2.5 gm/dL 05/08/18 04:40 Albumin/Globulin Ratio 1.4 (1.0-1.8) 05/08/18 04:40 Triglycerides 59 mg/dL (<150) 05/07/18 05:30 Cholesterol 98 mg/dL (<200) 05/07/18 05:30 LDL Cholesterol Direct 55 mg/dL (75-193) L 05/07/18 05:30 HDL Cholesterol 39 mg/dL (23-92) 05/07/18 05:30 Amylase 60 U/L (29-103) 05/07/18 05:30 Lipase 35 U/L (11-82) 05/07/18 05:30 TSH 1.30 uIU/ml (0.34-5.60) 05/07/18 05:30 Urine Source CLEAN C 05/07/18 18:24 Urine Color YELLOW 05/07/18 18:24 Urine Clarity CLEAR (CLEAR) 05/07/18 18:24 Urine pH 6.5 (4.6 - 8.0) 05/07/18 18:24 Ur Specific [place] 1.010 (1.005-1.030) 05/07/18 18:24 Urine Protein NEGATIVE mg/dL (NEGATIVE) 05/07/18 18:24 Urine Glucose (UA) NEGATIVE mg/dL (NEGATIVE) 05/07/18 18:24 Urine Ketones NEGATIVE mg/dL (NEGATIVE) 05/07/18 18:24 Urine Blood NEGATIVE (NEGATIVE) 05/07/18 18:24 Urine Nitrate NEGATIVE (NEGATIVE) 05/07/18 18:24 Urine Bilirubin NEGATIVE (NEGATIVE) 05/07/18 18:24 Urine Urobilinogen 1.0 E.U./dL (0.2 - 1.0) 05/07/18 18:24 Ur Leukocyte Esterase NEGATIVE (NEGATIVE) 05/07/18 18:24 Urine RBC 0-2 /hpf (0-5) H 05/07/18 18:24 Urine WBC 0-2 /hpf (0-5) 05/07/18 18:24 Ur Epithelial Cells FEW /lpf (FEW) 05/07/18 18:24 Urine Bacteria FEW /hpf (NONE SEEN) 05/07/18 18:24 Urine Mucus FEW /lpf (FEW) 05/07/18 18:24 Influenza A (Rapid) NEG FOR INF A 05/07/18 16:30 Influenza B (Rapid) NEG FOR INF B 05/07/18 16:30 - Physical Exam Vitals and I&O: Vital Signs Temp 98.0 F 05/09/18 04:00 Pulse 72 05/09/18 08:38 Resp 14 05/09/18 07:33 BP 124/71 05/09/18 08:38 Pulse Ox 97 05/09/18 07:33 Intake & Output 05/08/18 05/09/18 05/09/18 18:59 06:59 18:59 Intake Total 360 1100 Balance 360 1100 Weight (lbs) 102.875 kg 102.512 kg Intake: Intake, IV Amount 300 1100 D5-0.45NS 1,000 ml @ 50 1000 mls/hr IV .Q20H [facility] Rx#: [id number] Levofloxacin 500mg/100mL 100 500 mg In 100 ml @ 100 mls/hr IV Q24HR [facility] Rx#: [id number] metroNIDAZOLE 500mg/NS 200 100 100mL 500 mg In 100 ml @ 100 mls/hr IV Q8H [facility] Rx# :[id number] Oral 60 Other: # Voids 2 3 # Bowel Movements 0 0 Weight Source Bedscale Bedscale Active Medications: Current Medications Acetaminophen (Tylenol) 650 mg PO Q4HR PRN PRN Reason: MILD PAIN OR TEMP >101 Stop: 07/06/18 10:12 Last Admin: 05/08/18 15:33 Dose: 650 mg Acetaminophen/Hydrocodone Bitart ([place] 5mg/325mg) 1 tab PO Q4HR PRN PRN Reason: Pain (Severe) Stop: 07/06/18 10:12 Last Admin: 05/07/18 17:16 Dose: 1 tab Al Hydrox/Mg Hydrox/Simethicone (Maalox) 30 ml PO Q6H PRN PRN Reason: Heartburn Stop: 07/06/18 10:12 Albuterol Sulfate (Albuterol 2.5mg/3ml Neb Ud) 2.5 mg HHN Q6HR PRN PRN Reason: Shortness of Breath Stop: 07/06/18 10:12 Amlodipine Besylate (Norvasc) 7.5 mg PO DAILY [facility] Stop: 07/07/18 08:59 Last Admin: 05/09/18 08:38 Dose: 7.5 mg Artificial Tears (Artificial Tears Ophth Soln) 1 drop EACH EYE BID [facility] Stop: 07/06/18 16:59 Last Admin: 05/09/18 08:35 Dose: 1 drop Aspirin (Aspirin Chewable) 81 mg PO DAILY [facility] Stop: 07/06/18 11:59 Last Admin: 11/18/18 08:35 Dose: 81 mg Atorvastatin Calcium (Lipitor) 5 mg PO HS [facility] Stop: 07/06/18 20:59 Last Admin: 05/08/18 21:19 Dose: 5 mg Bisacodyl (Dulcolax 10 Mg Supp) 10 mg RC DAILY PRN PRN Reason: IF MOM INEFFECTIVE Stop: 07/06/18 10:12 Cholecalciferol (Vitamin D3) 1,000 iu PO DAILY [facility] Stop: 07/06/18 11:59 Last Admin: 05/09/18 08:36 Dose: 1,000 iu Docusate Sodium (Colace) 100 mg PO DAILY [facility] Stop: 07/06/18 11:59 Last Admin: 05/09/18 08:36 Dose: 100 mg Duloxetine HCl (Cymbalta) 30 mg PO BID [facility]; Protocol Stop: 07/06/18 16:59 Last Admin: 05/09/18 08:36 Dose: 30 mg Gabapentin (Neurontin) 300 mg PO BID [facility] Stop: 07/06/18 16:59 Last Admin: 05/09/18 08:36 Dose: 300 mg Heparin Sodium (Porcine) (Heparin) 5,000 units SUBQ Q12H [facility] Stop: 07/06/18 20:59 Last Admin: 05/08/18 22:00 Dose: Not Given Dextrose/Sodium Chloride (D5-0.45ns) 1,000 mls @ 50 mls/hr IV .Q20H [facility] Stop: 07/06/18 01:59 Last Admin: 05/09/18 03:49 Dose: 50 mls/hr Levofloxacin (Levaquin Pb) 500 mg in 100 mls @ 100 mls/hr IV Q24HR [facility] Stop: 07/06/18 08:59 Last Infusion: 05/08/18 17:05 Dose: Infused Metronidazole (Flagyl) 500 mg in 100 mls @ 100 mls/hr IV Q8H [facility] Stop: 07/06/18 07:59 Last Admin: 05/09/18 08:35 Dose: 100 mls/hr Lactobacillus Rhamnosus (Culturelle 15b) 1 each PO DAILY [facility] Stop: 07/07/18 08:59 Last Admin: 05/09/18 08:35 Dose: 1 each Losartan Potassium (Cozaar) 50 mg PO HS [facility] Stop: 07/06/18 20:59 Last Admin: 05/08/18 21:28 Dose: Not Given Magnesium Hydroxide (Milk Of Magnesia) 30 ml PO Q72H [facility] Stop: 07/06/18 10:14 Last Admin: 05/07/18 12:57 Dose: 30 ml Miscellaneous (Vte Chemical Prophylaxis Screen/ Admission) 1 ea PRN PRN PRN Reason: PROTOCOL Stop: 07/06/18 13:02 Miscellaneous (Probiotic Screen) 1 ea PRN PRN PRN Reason: PROTOCOL Stop: 07/06/18 13:14 Multivitamins/Vitamin C (Theragran) 1 tab PO DAILY [facility] Stop: 07/06/18 11:59 Last Admin: 05/09/18 08:36 Dose: 1 tab Senna (Senna) 8.6 mg PO HS [facility] Stop: 07/06/18 20:59 Last Admin: 05/08/18 21:21 Dose: 8.6 mg Sodium Phosphate (Fleet Enema) 135 ml RC Q48H PRN PRN Reason: IF DULCOLAX INEFFECTIVE Stop: 07/06/18 10:12 Tramadol HCl (Ultram) 50 mg PO Q6H PRN PRN Reason: MOD PAIN Stop: 07/06/18 10:12 Last Admin: 05/07/18 17:15 Dose: 50 mg Trazodone HCl (Desyrel) 75 mg PO [facility]; Protocol Stop: 07/06/18 20:59 Last Admin: 05/08/18 21:24 Dose: 75 mg General: Alert Neck: Supple Cardiovascular: Regular rate Lungs: Clear to auscultation Abdomen: Bowel sounds, Soft, no Tender - Procedures Procedures: Procedures Procedure Code Date COLONOSCOPY AND BIOPSY 61802 09/16/17 EXCISION OF RECTUM, ENDO, DIAGN [id number] 09/16/17 Assessment/Plan - Assessment Assessment: IMPRESSION: 1. LLQ ABD PAIN WITH FEVER/LEUKOCYTOSIS. CT SHOWED SIGMOID DIVERTICULOSIS, BUT CLINICALLY PATIENT LIKELY HAS ACUTE DIVERTICULITIS. ALSO MAY HAVE PNA PER ID. 2. OBESITY. 3. RECTAL BLEEDING 2 YRS AGO S/P COLO PER PT SHOWING HEMORRHOIDS. RECS: 1. ABX PER ID. 2. ORAL DIET [place]. 3. CONSIDER OUTPT ELECTIVE COLONOSCOPY IN 1-2 MONTHS. 4. STOOL SOFTENERS. 5. GI ROLLINS STABLE.
[2018-05-09 08:52] LABS: ANION GAP 11.3 (7.0-16.0); CARBON DIOXIDE 26.3 mEq/L (21.0-31.0); CREATININE - SERUM 0.7 mg/dL (0.7-1.3)
--- NOTE | 2018-05-09 08:54 | Internal Medicine Prog Note ---
Internal Medicine Subjective - Subjective Patient seen and examined:: chart reviewed Patient is:: awake, other (c/o abd pain ) Per staff patient has:: no adverse event, tolerating meds Internal Medicine Objective - Results Result Diagrams: 05/09/18 04:55 05/09/18 04:55 Recent Labs: Laboratory Last Values WBC 7.2 Th/cmm (4.8-10.8) 05/09/18 04:55 RBC 4.77 Mil/cmm (3.80-5.80) 05/09/18 04:55 Hgb 14.1 gm/dL (12-16) 05/09/18 04:55 Hct 42.5 % (41.0-60) 05/09/18 04:55 MCV 89.2 fl (80-99) 05/09/18 04:55 MCH 29.6 pg (27.0-31.0) 05/09/18 04:55 MCHC Differential 33.1 pg (28.0-36.0) 05/09/18 04:55 RDW 13.8 % (11.5-20.0) 05/09/18 04:55 Plt Count 144 Th/cmm (150-400) L 05/09/18 04:55 MPV 8.5 fl 05/09/18 04:55 Add Manual Diff YES 05/07/18 05:30 Neutrophils % 68.3 % (40.0-80.0) 05/09/18 04:55 Band Neutrophils % 3 % (0-10) 05/07/18 05:30 Lymphocytes % 16.3 % (20.0-50.0) L 05/09/18 04:55 Monocytes % 10.4 % (2.0-10.0) H 05/09/18 04:55 Eosinophils % 4.2 % (0.0-5.0) 05/09/18 04:55 Basophils % 0.8 % (0.0-2.0) 05/09/18 04:55 Neutrophils (Manual) 90 % (40-80) H 05/07/18 05:30 Lymphocytes 5 % (20-50) L 05/07/18 05:30 Monocytes 2 % (2-10) 05/07/18 05:30 Eosinophils 0 % (0-5) 05/07/18 05:30 Basophils 0 % (0-3) 05/07/18 05:30 Sodium 137 mEq/L (136-145) 05/09/18 04:55 Potassium 3.6 mEq/L (3.5-5.1) 05/09/18 04:55 Chloride 103 mEq/L (98-107) 05/09/18 04:55 Carbon Dioxide 28.6 mEq/L (21.0-31.0) 05/07/18 05:30 Anion Gap 10.1 (7.0-16.0) 05/07/18 05:30 BUN 10 mg/dL (7-25) 05/09/18 04:55 Creatinine 0.8 mg/dL (0.7-1.3) 05/07/18 05:30 Est GFR ( Amer) TNP 05/07/18 05:30 Est GFR (Non-Af Amer) TNP 05/07/18 05:30 BUN/Creatinine Ratio 16.3 05/07/18 05:30 Glucose 121 mg/dL (70-105) H 05/09/18 04:55 Whole Bld Lactic Acid 1.95 mmol/L (0.60-1.99) 05/06/18 21:00 Calcium 8.9 mg/dL (8.6-10.3) 05/09/18 04:55 Total Bilirubin 0.6 mg/dL (0.3-1.0) 05/08/18 04:40 Direct Bilirubin 0.17 mg/dL (0.0-0.2) 05/08/18 04:40 AST 22 U/L (13-39) 05/08/18 04:40 ALT 17 U/L (7-52) 05/08/18 04:40 Alkaline Phosphatase 42 U/L (34-104) 05/08/18 04:40 Total Protein 6.0 gm/dL (6.0-8.3) 05/08/18 04:40 Albumin 3.5 gm/dL (4.2-5.5) L 05/08/18 04:40 Globulin 2.5 gm/dL 05/08/18 04:40 Albumin/Globulin Ratio 1.4 (1.0-1.8) 05/08/18 04:40 Triglycerides 59 mg/dL (<150) 05/07/18 05:30 Cholesterol 98 mg/dL (<200) 05/07/18 05:30 LDL Cholesterol Direct 55 mg/dL (75-193) L 05/07/18 05:30 HDL Cholesterol 39 mg/dL (23-92) 05/07/18 05:30 Amylase 60 U/L (29-103) 05/07/18 05:30 Lipase 35 U/L (11-82) 05/07/18 05:30 TSH 1.30 uIU/ml (0.34-5.60) 05/07/18 05:30 Urine Source CLEAN C 05/07/18 18:24 Urine Color YELLOW 05/07/18 18:24 Urine Clarity CLEAR (CLEAR) 05/07/18 18:24 Urine pH 6.5 (4.6 - 8.0) 05/07/18 18:24 Ur Specific [place] 1.010 (1.005-1.030) 05/07/18 18:24 Urine Protein NEGATIVE mg/dL (NEGATIVE) 05/07/18 18:24 Urine Glucose (UA) NEGATIVE mg/dL (NEGATIVE) 05/07/18 18:24 Urine Ketones NEGATIVE mg/dL (NEGATIVE) 05/07/18 18:24 Urine Blood NEGATIVE (NEGATIVE) 05/07/18 18:24 Urine Nitrate NEGATIVE (NEGATIVE) 05/07/18 18:24 Urine Bilirubin NEGATIVE (NEGATIVE) 05/07/18 18:24 Urine Urobilinogen 1.0 E.U./dL (0.2 - 1.0) 05/07/18 18:24 Ur Leukocyte Esterase NEGATIVE (NEGATIVE) 05/07/18 18:24 Urine RBC 0-2 /hpf (0-5) H 05/07/18 18:24 Urine WBC 0-2 /hpf (0-5) 05/07/18 18:24 Ur Epithelial Cells FEW /lpf (FEW) 05/07/18 18:24 Urine Bacteria FEW /hpf (NONE SEEN) 05/07/18 18:24 Urine Mucus FEW /lpf (FEW) 05/07/18 18:24 Influenza A (Rapid) NEG FOR INF A 05/07/18 16:30 Influenza B (Rapid) NEG FOR INF B 05/07/18 16:30 - Physical Exam Vitals and I&O: Vital Signs Temp 97.6 F 05/09/18 08:48 Pulse 72 11/18/18 08:48 Resp 18 05/09/18 08:48 BP 124/71 05/09/18 08:48 Pulse Ox 98 05/09/18 08:48 Intake & Output 05/08/18 05/09/18 05/09/18 18:59 06:59 18:59 Intake Total 360 1100 Balance 360 1100 Weight (lbs) 102.875 kg 102.512 kg Intake: Intake, IV Amount 300 1100 D5-0.45NS 1,000 ml @ 50 1000 mls/hr IV .Q20H [facility]PL[facility] Rx#: [id number] Levofloxacin 500mg/100mL 100 500 mg In 100 ml @ 100 mls/hr IV Q24HR [facility] Rx#: [id number] metroNIDAZOLE 500mg/NS 200 100 100mL 500 mg In 100 ml @ 100 mls/hr IV Q8H [facility]PL[facility] Rx# :[id number] Oral 60 Other: # Voids 2 3 # Bowel Movements 0 0 Weight Source Bedscale Bedscale Active Medications: Current Medications Acetaminophen (Tylenol) 650 mg PO Q4HR PRN PRN Reason: MILD PAIN OR TEMP >101 Stop: 07/06/18 10:12 Last Admin: 05/08/18 15:33 Dose: 650 mg Acetaminophen/Hydrocodone Bitart ([place] 5mg/325mg) 1 tab PO Q4HR PRN PRN Reason: Pain (Severe) Stop: 07/06/18 10:12 Last Admin: 05/07/18 17:16 Dose: 1 tab Al Hydrox/Mg Hydrox/Simethicone (Maalox) 30 ml PO Q6H PRN PRN Reason: Heartburn Stop: 07/06/18 10:12 Albuterol Sulfate (Albuterol 2.5mg/3ml Neb Ud) 2.5 mg HHN Q6HR PRN PRN Reason: Shortness of Breath Stop: 07/06/18 10:12 Amlodipine Besylate (Norvasc) 7.5 mg PO DAILY [facility] Stop: 07/07/18 08:59 Last Admin: 05/09/18 08:38 Dose: 7.5 mg Artificial Tears (Artificial Tears Ophth Soln) 1 drop EACH EYE BID [facility] Stop: 07/06/18 16:59 Last Admin: 05/09/18 08:35 Dose: 1 drop Aspirin (Aspirin Chewable) 81 mg PO DAILY [facility] Stop: 07/06/18 11:59 Last Admin: 05/09/18 08:35 Dose: 81 mg Atorvastatin Calcium (Lipitor) 5 mg PO HS [facility] Stop: 07/06/18 20:59 Last Admin: 05/08/18 21:19 Dose: 5 mg Bisacodyl (Dulcolax 10 Mg Supp) 10 mg RC DAILY PRN PRN Reason: IF MOM INEFFECTIVE Stop: 07/06/18 10:12 Cholecalciferol (Vitamin D3) 1,000 iu PO DAILY [facility] Stop: 07/06/18 11:59 Last Admin: 05/09/18 08:36 Dose: 1,000 iu Docusate Sodium (Colace) 100 mg PO DAILY [facility] Stop: 07/06/18 11:59 Last Admin: 05/09/18 08:36 Dose: 100 mg Duloxetine HCl (Cymbalta) 30 mg PO BID [facility]; Protocol Stop: 07/06/18 16:59 Last Admin: 05/09/18 08:36 Dose: 30 mg Gabapentin (Neurontin) 300 mg PO BID [facility] Stop: 07/06/18 16:59 Last Admin: 05/09/18 08:36 Dose: 300 mg Heparin Sodium (Porcine) (Heparin) 5,000 units SUBQ Q12H [facility] Stop: 07/06/18 20:59 Last Admin: 05/08/18 22:00 Dose: Not Given Dextrose/Sodium Chloride (D5-0.45ns) 1,000 mls @ 50 mls/hr IV .Q20H [facility] Stop: 07/06/18 01:59 Last Admin: 05/09/18 03:49 Dose: 50 mls/hr Levofloxacin (Levaquin Pb) 500 mg in 100 mls @ 100 mls/hr IV Q24HR [facility] Stop: 07/06/18 08:59 Last Infusion: 05/08/18 17:05 Dose: Infused Metronidazole (Flagyl) 500 mg in 100 mls @ 100 mls/hr IV Q8H [facility] Stop: 07/06/18 07:59 Last Admin: 05/09/18 08:35 Dose: 100 mls/hr Lactobacillus Rhamnosus (Culturelle 15b) 1 each PO DAILY [facility] Stop: 07/07/18 08:59 Last Admin: 05/09/18 08:35 Dose: 1 each Losartan Potassium (Cozaar) 50 mg PO HS [facility] Stop: 07/06/18 20:59 Last Admin: 05/08/18 21:28 Dose: Not Given Magnesium Hydroxide (Milk Of Magnesia) 30 ml PO Q72H [facility] Stop: 07/06/18 10:14 Last Admin: 05/07/18 12:57 Dose: 30 ml Miscellaneous (Vte Chemical Prophylaxis Screen/ Admission) 1 ea PRN PRN PRN Reason: PROTOCOL Stop: 07/06/18 13:02 Miscellaneous (Probiotic Screen) 1 ea PRN PRN PRN Reason: PROTOCOL Stop: 07/06/18 13:14 Multivitamins/Vitamin C (Theragran) 1 tab PO DAILY [facility] Stop: 07/06/18 11:59 Last Admin: 05/09/18 08:36 Dose: 1 tab Polyethylene Glycol (Miralax) 17 gm PO DAILY [facility] Stop: 07/08/18 08:59 Senna (Senna) 8.6 mg PO HS [facility] Stop: 07/06/18 20:59 Last Admin: 05/08/18 21:21 Dose: 8.6 mg Sodium Phosphate (Fleet Enema) 135 ml RC Q48H PRN PRN Reason: IF DULCOLAX INEFFECTIVE Stop: 07/06/18 10:12 Tramadol HCl (Ultram) 50 mg PO Q6H PRN PRN Reason: MOD PAIN Stop: 07/06/18 10:12 Last Admin: 05/07/18 17:15 Dose: 50 mg Trazodone HCl (Desyrel) 75 mg PO HS [facility]; Protocol Stop: 07/06/18 20:59 Last Admin: 05/08/18 21:24 Dose: 75 mg General: weak HEENT: NC/AT Neck: Supple Lungs: CTAB Cardiovascular: Normal S1, Normal S2 Abdomen: other (abd tenderness) Extremities: clear, edema - Procedures Procedures: Procedures Procedure Code Date COLONOSCOPY AND BIOPSY 44657 09/16/17 EXCISION OF RECTUM, ENDO, DIAGN [id number] 09/16/17 Internal Medicine Assmt/Plan - Assessment Assessment: rt upper abd pain diverticulitis fever sepsis h/o cva with rt sided weakness h/o htn h/o gerd h/o renal failure h/o gi bleed h/o bph h/o seisure h/o metabolic encephalopathy h/o cardiomegaly h/o atherosclerotic heart disease h/o major depression - Plan Plan: as per order sheet Nutritional Asmnt/Malnutr-PDOC - Dietary Evaluation Malnutrition Findings (Please click <Entered> for more info): Nutritional Asmnt/Malnutrition Start: 05/07/18 15: 14 Text: Status: Complete Freq: Protocol: Document 05/07/18 15:17 ROSY (Rec: 05/07/18 15:36 ROSY [email or web address]) Nutritional Asmnt/Malnutrition Patient General Information Nutritional Screening High Risk Consult Diagnosis diverticulitis Pertinent Medical Hx/Surgical Hx HTN, DM, PUD/GERD, s/p GI bleed, right sided hemiplegia, renal failure, BPH, toxic encephalopathy, hyperlipidemia , anxiety disorder, seizures, s/p sepsis, anemia, insomnia, atherosclerotic heart disease, heart failure, vascular disease, cardiomegaly, bronchitis, dysphagia, arthritis, cataracts, major depression Subjective Information Received diet consult for right buttocks wound. Pt eating lunch at time of visit. Required fuel cell engineer d/t pt's divehi speaking. Pt c/o meat not pureed enough; offered an additional portion of pureed meat (liquid-like) and pt was satisfied. Pt finished 90-100% of lunch and able to feed by himself. Current Diet Order/ Nutrition Support Pureed, BERTHA, CCHO Pertinent Medications norvasc, lipitor, D5-0.45ns, vit D3, colace, heparin, culturelle, levaquin, theragran, senna Pertinent Labs 05/07: Na 139, glucose 110 05/06: Na 135, glucose 111 Nutritional Hx/Data Height 1.73 m Height (Calculated Centimeters) 172.7 Current Weight (lbs) 102.739 kg Weight (Calculated Kilograms) 102.7 Weight (Calculated Grams) 772819.7 Gans Body Weight 154 lb Body Mass Index (BMI) 34.4 Weight Status Obese GI Symptoms GI Symptoms None Last BM none noted Difficult in: None Food Allergies No Skin Integrity/Comment: right buttocks wound, non- pitting 2+ edema to right lower extremity, audra 13 Estimated Nutritional Goals BEE in Kcals: Adj wt of IBW Calories/Kcals/Kg 23-27 (based on adj wt 78.2 kg ) Kcals Calculated 9445-7675 Protein: Adj wt of IBW Protein g/k.8-1 Protein Calculated 63-78 g Fluid: ml 8168-4426 (1 ml/kcal) Nutritional Problem 1. Problem Problem Altered nutrition related lab value Etiology hyperglycemia, endocrine dysfunction Signs/Symptoms: glucose 110 Malnutrition Alert Is there a minimum of two criteria No selected? Query Text:Check all the applicable criteria. A minimum of two criteria are recommended for diagnosis of either severe or non-severe malnutrition. Malnutrition Related to Morbid Obesity Malnutrition related to morbid obesity No Intervention/Recommendation Comments 1. Continue with pureed, BERTHA, CCHO diet as ordered d/t elevated blood glucose and presence of edema 2. Monitor PO intake, wt, skin , and nutrition related labs 3. F/U as moderate risk in 3-5 days, 05/10-05/12 Expected Outcomes/Goals Expected Outcomes/Goals 1. PO intake to meet at least 75% of all meals 2. Wt stability, skin integrity to improve, nutrition related labs to approach normal limits Reviewed by Kaylie Cristobal RD
[2018-05-09] MEDS: POLYETHYLENE GLYCOL 3350 17 GM PACK PO SCH (09:25)
[2018-05-09] MEDS: Levofloxacin 500mg/100mL 500 MG/100 ML BAG IV SCH (09:25)
--- NOTE | 2018-05-09 10:03 | Diagnostic Imaging Report ---
Abdominal ultrasound HISTORY: Pain The liver exhibits a normal size with a homogeneous parenchyma. No focal lesions. The gallbladder is normal. No calculi are seen. No biliary dilatation. No abnormality seen in the region of the pancreas. The kidneys appear normal bilaterally. The spleen is normal in size. No other retroperitoneal or intra-abdominal abnormalities. IMPRESSION: Negative examination
--- NOTE | 2018-05-09 10:09 | Consultation ---
DATE OF CONSULTATION: 05/08/2018 GASTROENTEROLOGY CONSULTATION REQUESTING PHYSICIAN: Dr. Lemuel Avendano. REASON FOR CONSULTATION: Left lower quadrant pain. HISTORY OF PRESENT ILLNESS: A 72-year-old male sent in from [place] for fevers, chills, and left lower quadrant pain. The patient has hypertension, diabetes mellitus, peptic ulcer disease, previous GI bleeding and old stroke with right hemiplegia, also has chronic kidney disease, BPH, encephalopathy, seizure disorder. There was a question of diverticulitis, the patient was admitted. PAST MEDICAL HISTORY: As above. MEDICATIONS: Here are Tylenol, Whitetail, Maalox, albuterol, Norvasc, baby aspirin, Lipitor, Dulcolax p.r.n., vitamin D3, D5 half NS, Colace, Cymbalta, Neurontin, subcutaneous heparin, Culturelle, Levaquin, Cozaar, milk of magnesia, Flagyl, multivitamin, senna, trazodone. ALLERGIES: PENICILLIN. SOCIAL HISTORY: No recent tobacco, alcohol or drugs. FAMILY HISTORY: Noncontributory. REVIEW OF SYSTEMS: A comprehensive 12-point review of system was conducted and is only positive for the signs and symptoms present in the history of present illness. PHYSICAL EXAMINATION: VITAL SIGNS: Temperature of 97.3, blood pressure 122/69, pulse of 61, respirations 18, O2 sat 99%. GENERAL: The patient is well-developed elderly male, in no acute distress, awake, alert, oriented x 4. HEENT: Sclerae nonicteric. Oropharynx is clear. CARDIOVASCULAR: Regular rate and rhythm. LUNGS: Clear to auscultation bilaterally. ABDOMEN: Soft, mild left lower quadrant tenderness to palpation with mild distention, no rebound or guarding. EXTREMITIES: No clubbing, cyanosis or edema. RECTAL: Deferred. LABORATORY AND IMAGING DATA: WBC initially of 16.7 down to 15.2 today, hemoglobin 14.4, platelet count is 142. Creatinine 0.9. Liver enzymes normal. Albumin is 3.5. Amylase and lipase normal. Urinalysis clear. CT of the abdomen and pelvis done 2 days ago without contrast shows diverticulosis without diverticulitis. No evidence of appendicitis. Mildly distended stomach. Abnormal increased density along the anterior bladder wall and moderate fat containing right inguinal hernia. IMPRESSION: 1. Left lower quadrant pain in setting of diverticulosis is suspicious for diverticulitis given the CT is negative. 2. Leukocytosis, rule out sepsis. 3. History of benign prostatic hypertrophy. 4. History of old stroke with right-sided hemiplegia. 5. History of chronic kidney disease. 6. History of seizure disorder. RECOMMENDATIONS: 1. Monitor labs. 2. Oral diet as tolerated. 3. Antibiotics as per ID integrity consultant. 4. Pain control measures. 5. Stool softeners as needed. 6. Consider outpatient colonoscopy in 4-6 weeks' time to evaluate the colon once presumed diverticulitis has resolved. Thank you, Dr. Lemuel Avendano for involving us in the care of your patient. If you have any further questions, please call us. [facility]# [id number]
[2018-05-09] MEDS: Atorvastatin Calcium 10 MG TAB PO SCH (21:11)
[2018-05-10] MEDS: D5-0.45NS 1,000 ML IV SCH (00:03)
[2018-05-10 04:40] LABS: % BASOPHILS 1.2 % (0.0-2.0); % EOSINOPHILS 3.3 % (0.0-5.0); % LYMPHOCYTES 15.7 % (20.0-50.0); % MONOCYTES 9.6 % (2.0-10.0); % NEUTROPHILS 70.2 % (40.0-80.0); BASOPHILE ABSOLUTE 0.1 Th/cumm (0-0.2); EOSINOPHILE ABSOLUTE 0.2 Th/cmm (0.1-0.4); HEMATOCRIT 44.7 % (41.0-60); HEMOGLOBIN 14.6 gm/dL (12-16); LYMPHOCYTE ABSOLUTE 1.1 Th/cmm (1.5-3.0); MEAN CELL VOLUME 89.7 fl (80-99); MEAN CORPUSCULAR HEMOGLOBIN 29.3 pg (27.0-31.0); MEAN CORPUSCULAR HGB CONC 32.6 pg (28.0-36.0); MEAN PLATELET VOLUME 7.5 fl; MONOCYTE ABSOLUTE 0.7 Th/cmm (0.3-1.0); NEUTROPHILE ABSOLUTE 4.9 Th/cmm (1.8-8.0); RED BLOOD COUNT 4.98 Mil/cmm (3.80-5.80); RED CELL DISTRIBUTION WIDTH 13.9 % (11.5-20.0)
[2018-05-10 05:11] LABS: PLATELET COUNT 181 Th/cmm (150-400)
[2018-05-10] MEDS: metroNIDAZOLE 500mg/NS 100mL 500 MG/100 ML BAG IV SCH ×2 (07:54)
--- NOTE | 2018-05-10 08:00 | GI Progress Note ---
Subjective - Review of Systems Service Date: 05/10/18 Subjective: Complains of constipation, less abd pain. Objective - Results Result Diagrams: 05/10/18 04:35 05/09/18 04:55 Recent Labs: Laboratory Last Values WBC 7.0 Th/cmm (4.8-10.8) 05/10/18 04:35 RBC 4.98 Mil/cmm (3.80-5.80) 05/10/18 04:35 Hgb 14.6 gm/dL (12-16) 05/10/18 04:35 Hct 44.7 % (41.0-60) 05/10/18 04:35 MCV 89.7 fl (80-99) 05/10/18 04:35 MCH 29.3 pg (27.0-31.0) 05/10/18 04:35 MCHC Differential 32.6 pg (28.0-36.0) 05/10/18 04:35 RDW 13.9 % (11.5-20.0) 05/10/18 04:35 Plt Count 181 Th/cmm (150-400) D 05/10/18 04:35 MPV 7.5 fl 05/10/18 04:35 Add Manual Diff YES 05/07/18 05:30 Neutrophils % 70.2 % (40.0-80.0) 05/10/18 04:35 Band Neutrophils % 3 % (0-10) 05/07/18 05:30 Lymphocytes % 15.7 % (20.0-50.0) L 05/10/18 04:35 Monocytes % 9.6 % (2.0-10.0) 05/10/18 04:35 Eosinophils % 3.3 % (0.0-5.0) 05/10/18 04:35 Basophils % 1.2 % (0.0-2.0) 05/10/18 04:35 Neutrophils (Manual) 90 % (40-80) H 05/07/18 05:30 Lymphocytes 5 % (20-50) L 05/07/18 05:30 Monocytes 2 % (2-10) 05/07/18 05:30 Eosinophils 0 % (0-5) 05/07/18 05:30 Basophils 0 % (0-3) 05/07/18 05:30 Sodium 137 mEq/L (136-145) 05/09/18 04:55 Potassium 3.6 mEq/L (3.5-5.1) 05/09/18 04:55 Chloride 103 mEq/L (98-107) 05/09/18 04:55 Carbon Dioxide 26.3 mEq/L (21.0-31.0) 05/09/18 04:55 Anion Gap 11.3 (7.0-16.0) 05/09/18 04:55 BUN 10 mg/dL (7-25) 05/09/18 04:55 Creatinine 0.7 mg/dL (0.7-1.3) 05/09/18 04:55 Est GFR ( Amer) TNP 05/09/18 04:55 Est GFR (Non-Af Amer) TNP 05/09/18 04:55 BUN/Creatinine Ratio 14.3 05/09/18 04:55 Glucose 121 mg/dL (70-105) H 05/09/18 04:55 Whole Bld Lactic Acid 1.95 mmol/L (0.60-1.99) 05/06/18 21:00 Calcium 8.9 mg/dL (8.6-10.3) 05/09/18 04:55 Total Bilirubin 0.6 mg/dL (0.3-1.0) 05/08/18 04:40 Direct Bilirubin 0.17 mg/dL (0.0-0.2) 05/08/18 04:40 AST 22 U/L (13-39) 05/08/18 04:40 ALT 17 U/L (7-52) 05/08/18 04:40 Alkaline Phosphatase 42 U/L (34-104) 05/08/18 04:40 Total Protein 6.0 gm/dL (6.0-8.3) 05/08/18 04:40 Albumin 3.5 gm/dL (4.2-5.5) L 05/08/18 04:40 Globulin 2.5 gm/dL 05/08/18 04:40 Albumin/Globulin Ratio 1.4 (1.0-1.8) 05/08/18 04:40 Triglycerides 59 mg/dL (<150) 05/07/18 05:30 Cholesterol 98 mg/dL (<200) 05/07/18 05:30 LDL Cholesterol Direct 55 mg/dL (75-193) L 05/07/18 05:30 HDL Cholesterol 39 mg/dL (23-92) 05/07/18 05:30 Amylase 60 U/L (29-103) 05/07/18 05:30 Lipase 35 U/L (11-82) 05/07/18 05:30 TSH 1.30 uIU/ml (0.34-5.60) 05/07/18 05:30 Urine Source CLEAN C 05/07/18 18:24 Urine Color YELLOW 05/07/18 18:24 Urine Clarity CLEAR (CLEAR) 05/07/18 18:24 Urine pH 6.5 (4.6 - 8.0) 05/07/18 18:24 Ur Specific [place] 1.010 (1.005-1.030) 05/07/18 18:24 Urine Protein NEGATIVE mg/dL (NEGATIVE) 05/07/18 18:24 Urine Glucose (UA) NEGATIVE mg/dL (NEGATIVE) 05/07/18 18:24 Urine Ketones NEGATIVE mg/dL (NEGATIVE) 05/07/18 18:24 Urine Blood NEGATIVE (NEGATIVE) 05/07/18 18:24 Urine Nitrate NEGATIVE (NEGATIVE) 05/07/18 18:24 Urine Bilirubin NEGATIVE (NEGATIVE) 05/07/18 18:24 Urine Urobilinogen 1.0 E.U./dL (0.2 - 1.0) 05/07/18 18:24 Ur Leukocyte Esterase NEGATIVE (NEGATIVE) 05/07/18 18:24 Urine RBC 0-2 /hpf (0-5) H 05/07/18 18:24 Urine WBC 0-2 /hpf (0-5) 05/07/18 18:24 Ur Epithelial Cells FEW /lpf (FEW) 05/07/18 18:24 Urine Bacteria FEW /hpf (NONE SEEN) 05/07/18 18:24 Urine Mucus FEW /lpf (FEW) 05/07/18 18:24 Influenza A (Rapid) NEG FOR INF A 05/07/18 16:30 Influenza B (Rapid) NEG FOR INF B 05/07/18 16:30 - Physical Exam Vitals and I&O: Vital Signs Temp 99.5 F 05/09/18 20:00 Pulse 68 05/10/18 07:22 Resp 18 05/10/18 07:23 BP 141/75 05/09/18 21:10 Pulse Ox 97 11/19/18 07:22 Intake & Output 05/09/18 05/10/18 05/10/18 18:59 06:59 18:59 Intake Total 900 1520 Output Total 1500 800 Balance -600 720 Weight (lbs) 102.512 kg 100.698 kg Intake: Intake, IV Amount 300 1100 D5-0.45NS 1,000 ml @ 50 1000 mls/hr IV .Q20H [facility] Rx#: [id number] Levofloxacin 500mg/100mL 100 500 mg In 100 ml @ 100 mls/hr IV Q24HR [facility] Rx#: [id number] metroNIDAZOLE 500mg/NS 200 100 100mL 500 mg In 100 ml @ 100 mls/hr IV Q8H [facility] Rx# :[id number] Oral 600 420 Output: Urine 1500 800 Other: Weight Source Bedscale Bedscale Active Medications: Current Medications Acetaminophen (Tylenol) 650 mg PO Q4HR PRN PRN Reason: MILD PAIN OR TEMP >101 Stop: 07/06/18 10:12 Last Admin: 05/08/18 15:33 Dose: 650 mg Acetaminophen/Hydrocodone Bitart ([place] 5mg/325mg) 1 tab PO Q4HR PRN PRN Reason: Pain (Severe) Stop: 07/06/18 10:12 Last Admin: 05/07/18 17:16 Dose: 1 tab Al Hydrox/Mg Hydrox/Simethicone (Maalox) 30 ml PO Q6H PRN PRN Reason: Heartburn Stop: 07/06/18 10:12 Albuterol Sulfate (Albuterol 2.5mg/3ml Neb Ud) 2.5 mg HHN Q6HR PRN PRN Reason: Shortness of Breath Stop: 07/06/18 10:12 Amlodipine Besylate (Norvasc) 7.5 mg PO DAILY [facility] Stop: 07/07/18 08:59 Last Admin: 05/09/18 08:38 Dose: 7.5 mg Artificial Tears (Artificial Tears Ophth Soln) 1 drop EACH EYE BID [facility] Stop: 07/06/18 16:59 Last Admin: 05/09/18 16:06 Dose: 1 drop Aspirin (Aspirin Chewable) 81 mg PO DAILY [facility] Stop: 07/06/18 11:59 Last Admin: 05/09/18 08:35 Dose: 81 mg Atorvastatin Calcium (Lipitor) 5 mg PO HS [facility] Stop: 07/06/18 20:59 Last Admin: 05/09/18 21:11 Dose: 5 mg Bisacodyl (Dulcolax 10 Mg Supp) 10 mg RC DAILY PRN PRN Reason: IF MOM INEFFECTIVE Stop: 07/06/18 10:12 Cholecalciferol (Vitamin D3) 1,000 iu PO DAILY [facility] Stop: 07/06/18 11:59 Last Admin: 05/09/18 08:36 Dose: 1,000 iu Docusate Sodium (Colace) 100 mg PO DAILY [facility] Stop: 07/06/18 11:59 Last Admin: 05/09/18 08:36 Dose: 100 mg Duloxetine HCl (Cymbalta) 30 mg PO BID [facility]; Protocol Stop: 07/06/18 16:59 Last Admin: 05/09/18 16:07 Dose: 30 mg Gabapentin (Neurontin) 300 mg PO BID [facility] Stop: 07/06/18 16:59 Last Admin: 05/09/18 16:07 Dose: 300 mg Heparin Sodium (Porcine) (Heparin) 5,000 units SUBQ Q12H [facility] Stop: 07/06/18 20:59 Last Admin: 05/09/18 21:03 Dose: Not Given Dextrose/Sodium Chloride (D5-0.45ns) 1,000 mls @ 50 mls/hr IV .Q20H [facility] Stop: 07/06/18 01:59 Last Admin: 05/10/18 00:03 Dose: 50 mls/hr Levofloxacin (Levaquin Pb) 500 mg in 100 mls @ 100 mls/hr IV Q24HR [facility] Stop: 07/06/18 08:59 Last Infusion: 05/09/18 16:14 Dose: Infused Metronidazole (Flagyl) 500 mg in 100 mls @ 100 mls/hr IV Q8H [facility] Stop: 07/06/18 07:59 Last Infusion: 05/10/18 01:00 Dose: Infused Lactobacillus Rhamnosus (Culturelle 15b) 1 each PO DAILY [facility] Stop: 07/07/18 08:59 Last Admin: 05/09/18 08:35 Dose: 1 each Losartan Potassium (Cozaar) 50 mg PO HS [facility] Stop: 07/06/18 20:59 Last Admin: 05/09/18 21:10 Dose: 50 mg Magnesium Hydroxide (Milk Of Magnesia) 30 ml PO Q72H [facility] Stop: 07/06/18 10:14 Last Admin: 05/07/18 12:57 Dose: 30 ml Miscellaneous (Vte Chemical Prophylaxis Screen/ Admission) 1 ea PRN PRN PRN Reason: PROTOCOL Stop: 07/06/18 13:02 Miscellaneous (Probiotic Screen) 1 ea PRN PRN PRN Reason: PROTOCOL Stop: 07/06/18 13:14 Multivitamins/Vitamin C (Theragran) 1 tab PO DAILY [facility] Stop: 07/06/18 11:59 Last Admin: 05/09/18 08:36 Dose: 1 tab Polyethylene Glycol (Miralax) 17 gm PO DAILY [facility] Stop: 07/08/18 08:59 Last Admin: 05/09/18 09:25 Dose: 17 gm Senna (Senna) 8.6 mg PO HS [facility] Stop: 07/06/18 20:59 Last Admin: 05/09/18 21:10 Dose: 8.6 mg Sodium Phosphate (Fleet Enema) 135 ml RC Q48H PRN PRN Reason: IF DULCOLAX INEFFECTIVE Stop: 07/06/18 10:12 Tramadol HCl (Ultram) 50 mg PO Q6H PRN PRN Reason: MOD PAIN Stop: 07/06/18 10:12 Last Admin: 05/07/18 17:15 Dose: 50 mg Trazodone HCl (Desyrel) 75 mg PO HS [facility]; Protocol Stop: 07/06/18 20:59 Last Admin: 05/09/18 21:11 Dose: 75 mg General: Alert Neck: Supple Cardiovascular: Regular rate Lungs: Clear to auscultation Abdomen: Bowel sounds, Soft, no Tender - Procedures Procedures: Procedures Procedure Code Date COLONOSCOPY AND BIOPSY 77495 09/16/17 EXCISION OF RECTUM, ENDO, DIAGN [id number] 09/16/17 Assessment/Plan - Assessment Assessment: IMPRESSION: 1. LLQ ABD PAIN WITH FEVER/LEUKOCYTOSIS. CT SHOWED SIGMOID DIVERTICULOSIS, BUT CLINICALLY PATIENT LIKELY HAS ACUTE DIVERTICULITIS. ALSO MAY HAVE PNA PER ID. 2. OBESITY. 3. RECTAL BLEEDING 2 YRS AGO S/P COLO PER PT SHOWING HEMORRHOIDS. RECS: 1. ABX PER ID. 2. ORAL DIET [place]. 3. CONSIDER OUTPT ELECTIVE COLONOSCOPY IN 1-2 MONTHS. 4. STOOL SOFTENERS. Pt has orders for miralax, enema prn 5. GI ROLLINS STABLE.
[2018-05-10] MEDS: Multivitamin Tab PO SCH (09:45)
[2018-05-10] MEDS: Polyvinyl Alcohol Ophth Soln 15 mL Bottle EACH EYE SCH (09:46)
[2018-05-10] MEDS: Lactobacillus Rhamnosus GG 15 Billion CFU CAP.SPRINK PO SCH (09:46)
[2018-05-10] MEDS: POLYETHYLENE GLYCOL 3350 17 GM PACK PO SCH (09:46)
[2018-05-10] MEDS: Aspirin 81mg Chewable Tab PO SCH (09:47)
--- NOTE | 2018-05-10 10:36 | Internal Medicine Prog Note ---
Internal Medicine Subjective - Subjective Patient seen and examined:: chart reviewed Patient is:: awake, other (c/o abd pain improving ) Patient Complaints of:: constipation Per staff patient has:: no adverse event, tolerating meds Internal Medicine Objective - Results Result Diagrams: 05/10/18 04:35 05/09/18 04:55 Recent Labs: Laboratory Last Values WBC 7.0 Th/cmm (4.8-10.8) 05/10/18 04:35 RBC 4.98 Mil/cmm (3.80-5.80) 05/10/18 04:35 Hgb 14.6 gm/dL (12-16) 05/10/18 04:35 Hct 44.7 % (41.0-60) 05/10/18 04:35 MCV 89.7 fl (80-99) 05/10/18 04:35 MCH 29.3 pg (27.0-31.0) 05/10/18 04:35 MCHC Differential 32.6 pg (28.0-36.0) 05/10/18 04:35 RDW 13.9 % (11.5-20.0) 05/10/18 04:35 Plt Count 181 Th/cmm (150-400) D 05/10/18 04:35 MPV 7.5 fl 05/10/18 04:35 Add Manual Diff YES 05/07/18 05:30 Neutrophils % 70.2 % (40.0-80.0) 05/10/18 04:35 Band Neutrophils % 3 % (0-10) 05/07/18 05:30 Lymphocytes % 15.7 % (20.0-50.0) L 05/10/18 04:35 Monocytes % 9.6 % (2.0-10.0) 05/10/18 04:35 Eosinophils % 3.3 % (0.0-5.0) 05/10/18 04:35 Basophils % 1.2 % (0.0-2.0) 05/10/18 04:35 Neutrophils (Manual) 90 % (40-80) H 05/07/18 05:30 Lymphocytes 5 % (20-50) L 05/07/18 05:30 Monocytes 2 % (2-10) 05/07/18 05:30 Eosinophils 0 % (0-5) 05/07/18 05:30 Basophils 0 % (0-3) 05/07/18 05:30 Sodium 137 mEq/L (136-145) 05/09/18 04:55 Potassium 3.6 mEq/L (3.5-5.1) 05/09/18 04:55 Chloride 103 mEq/L (98-107) 05/09/18 04:55 Carbon Dioxide 26.3 mEq/L (21.0-31.0) 05/09/18 04:55 Anion Gap 11.3 (7.0-16.0) 05/09/18 04:55 BUN 10 mg/dL (7-25) 05/09/18 04:55 Creatinine 0.7 mg/dL (0.7-1.3) 05/09/18 04:55 Est GFR ( Amer) TNP 05/09/18 04:55 Est GFR (Non-Af Amer) TNP 05/09/18 04:55 BUN/Creatinine Ratio 14.3 05/09/18 04:55 Glucose 121 mg/dL (70-105) H 05/09/18 04:55 Whole Bld Lactic Acid 1.95 mmol/L (0.60-1.99) 05/06/18 21:00 Calcium 8.9 mg/dL (8.6-10.3) 05/09/18 04:55 Total Bilirubin 0.6 mg/dL (0.3-1.0) 05/08/18 04:40 Direct Bilirubin 0.17 mg/dL (0.0-0.2) 05/08/18 04:40 AST 22 U/L (13-39) 05/08/18 04:40 ALT 17 U/L (7-52) 05/08/18 04:40 Alkaline Phosphatase 42 U/L (34-104) 05/08/18 04:40 Total Protein 6.0 gm/dL (6.0-8.3) 05/08/18 04:40 Albumin 3.5 gm/dL (4.2-5.5) L 05/08/18 04:40 Globulin 2.5 gm/dL 05/08/18 04:40 Albumin/Globulin Ratio 1.4 (1.0-1.8) 05/08/18 04:40 Triglycerides 59 mg/dL (<150) 05/07/18 05:30 Cholesterol 98 mg/dL (<200) 05/07/18 05:30 LDL Cholesterol Direct 55 mg/dL (75-193) L 05/07/18 05:30 HDL Cholesterol 39 mg/dL (23-92) 05/07/18 05:30 Amylase 60 U/L (29-103) 05/07/18 05:30 Lipase 35 U/L (11-82) 05/07/18 05:30 TSH 1.30 uIU/ml (0.34-5.60) 05/07/18 05:30 Urine Source CLEAN C 05/07/18 18:24 Urine Color YELLOW 05/07/18 18:24 Urine Clarity CLEAR (CLEAR) 05/07/18 18:24 Urine pH 6.5 (4.6 - 8.0) 05/07/18 18:24 Ur Specific [place] 1.010 (1.005-1.030) 05/07/18 18:24 Urine Protein NEGATIVE mg/dL (NEGATIVE) 05/07/18 18:24 Urine Glucose (UA) NEGATIVE mg/dL (NEGATIVE) 05/07/18 18:24 Urine Ketones NEGATIVE mg/dL (NEGATIVE) 05/07/18 18:24 Urine Blood NEGATIVE (NEGATIVE) 05/07/18 18:24 Urine Nitrate NEGATIVE (NEGATIVE) 05/07/18 18:24 Urine Bilirubin NEGATIVE (NEGATIVE) 05/07/18 18:24 Urine Urobilinogen 1.0 E.U./dL (0.2 - 1.0) 05/07/18 18:24 Ur Leukocyte Esterase NEGATIVE (NEGATIVE) 05/07/18 18:24 Urine RBC 0-2 /hpf (0-5) H 05/07/18 18:24 Urine WBC 0-2 /hpf (0-5) 05/07/18 18:24 Ur Epithelial Cells FEW /lpf (FEW) 05/07/18 18:24 Urine Bacteria FEW /hpf (NONE SEEN) 05/07/18 18:24 Urine Mucus FEW /lpf (FEW) 05/07/18 18:24 Influenza A (Rapid) NEG FOR INF A 05/07/18 16:30 Influenza B (Rapid) NEG FOR INF B 05/07/18 16:30 - Physical Exam Vitals and I&O: Vital Signs Temp 97.8 F 05/10/18 08:00 Pulse 68 05/10/18 09:44 Resp 20 05/10/18 08:00 BP 132/74 05/10/18 09:44 Pulse Ox 98 05/10/18 08:00 Intake & Output 05/09/18 05/10/18 05/10/18 18:59 06:59 18:59 Intake Total 900 1520 Output Total 1500 800 Balance -600 720 Weight (lbs) 102.512 kg 100.698 kg Intake: Intake, IV Amount 300 1100 D5-0.45NS 1,000 ml @ 50 1000 mls/hr IV .Q20H [facility] Rx#: [id number] Levofloxacin 500mg/100mL 100 500 mg In 100 ml @ 100 mls/hr IV Q24HR [facility] Rx#: [id number] metroNIDAZOLE 500mg/NS 200 100 100mL 500 mg In 100 ml @ 100 mls/hr IV Q8H [facility] Rx# :[id number] Oral 600 420 Output: Urine 1500 800 Other: Weight Source Bedscale Bedscale Active Medications: Current Medications Acetaminophen (Tylenol) 650 mg PO Q4HR PRN PRN Reason: MILD PAIN OR TEMP >101 Stop: 07/06/18 10:12 Last Admin: 05/08/18 15:33 Dose: 650 mg Acetaminophen/Hydrocodone Bitart ([place] 5mg/325mg) 1 tab PO Q4HR PRN PRN Reason: Pain (Severe) Stop: 07/06/18 10:12 Last Admin: 05/07/18 17:16 Dose: 1 tab Al Hydrox/Mg Hydrox/Simethicone (Maalox) 30 ml PO Q6H PRN PRN Reason: Heartburn Stop: 07/06/18 10:12 Albuterol Sulfate (Albuterol 2.5mg/3ml Neb Ud) 2.5 mg HHN Q6HR PRN PRN Reason: Shortness of Breath Stop: 07/06/18 10:12 Amlodipine Besylate (Norvasc) 7.5 mg PO DAILY [facility] Stop: 07/07/18 08:59 Last Admin: 05/10/18 09:44 Dose: 7.5 mg Artificial Tears (Artificial Tears Ophth Soln) 1 drop EACH EYE BID [facility] Stop: 07/06/18 16:59 Last Admin: 05/10/18 09:46 Dose: 1 drop Aspirin (Aspirin Chewable) 81 mg PO DAILY [facility] Stop: 07/06/18 11:59 Last Admin: 05/10/18 09:47 Dose: 81 mg Atorvastatin Calcium (Lipitor) 5 mg PO HS [facility] Stop: 07/06/18 20:59 Last Admin: 05/09/18 21:11 Dose: 5 mg Bisacodyl (Dulcolax 10 Mg Supp) 10 mg RC DAILY PRN PRN Reason: IF MOM INEFFECTIVE Stop: 07/06/18 10:12 Cholecalciferol (Vitamin D3) 1,000 iu PO DAILY [facility] Stop: 07/06/18 11:59 Last Admin: 05/09/18 08:36 Dose: 1,000 iu Docusate Sodium (Colace) 100 mg PO DAILY [facility] Stop: 07/06/18 11:59 Last Admin: 05/10/18 09:46 Dose: 100 mg Duloxetine HCl (Cymbalta) 30 mg PO BID [facility]; Protocol Stop: 07/06/18 16:59 Last Admin: 05/10/18 09:46 Dose: 30 mg Gabapentin (Neurontin) 300 mg PO BID [facility] Stop: 07/06/18 16:59 Last Admin: 05/10/18 09:45 Dose: 300 mg Heparin Sodium (Porcine) (Heparin) 5,000 units SUBQ Q12H [facility] Stop: 07/06/18 20:59 Last Admin: 05/10/18 09:46 Dose: 5,000 units Dextrose/Sodium Chloride (D5-0.45ns) 1,000 mls @ 50 mls/hr IV .Q20H [facility] Stop: 07/06/18 01:59 Last Admin: 05/10/18 00:03 Dose: 50 mls/hr Levofloxacin (Levaquin Pb) 500 mg in 100 mls @ 100 mls/hr IV Q24HR [facility] Stop: 07/06/18 08:59 Last Infusion: 05/09/18 16:14 Dose: Infused Metronidazole (Flagyl) 500 mg in 100 mls @ 100 mls/hr IV Q8H [facility] Stop: 07/06/18 07:59 Last Admin: 05/10/18 07:54 Dose: 100 mls/hr Lactobacillus Rhamnosus (Culturelle 15b) 1 each PO DAILY [facility] Stop: 07/07/18 08:59 Last Admin: 05/10/18 09:46 Dose: 1 each Losartan Potassium (Cozaar) 50 mg PO HS [facility] Stop: 07/06/18 20:59 Last Admin: 05/09/18 21:10 Dose: 50 mg Magnesium Hydroxide (Milk Of Magnesia) 30 ml PO Q72H [facility] Stop: 07/06/18 10:14 Last Admin: 05/07/18 12:57 Dose: 30 ml Miscellaneous (Vte Chemical Prophylaxis Screen/ Admission) 1 ea PRN PRN PRN Reason: PROTOCOL Stop: 07/06/18 13:02 Miscellaneous (Probiotic Screen) 1 ea PRN PRN PRN Reason: PROTOCOL Stop: 07/06/18 13:14 Multivitamins/Vitamin C (Theragran) 1 tab PO DAILY [facility] Stop: 07/06/18 11:59 Last Admin: 05/10/18 09:45 Dose: 1 tab Polyethylene Glycol (Miralax) 17 gm PO DAILY [facility] Stop: 07/08/18 08:59 Last Admin: 05/10/18 09:46 Dose: 17 gm Senna (Senna) 8.6 mg PO HS [facility] Stop: 07/06/18 20:59 Last Admin: 05/09/18 21:10 Dose: 8.6 mg Sodium Phosphate (Fleet Enema) 135 ml RC Q48H PRN PRN Reason: IF DULCOLAX INEFFECTIVE Stop: 07/06/18 10:12 Tramadol HCl (Ultram) 50 mg PO Q6H PRN PRN Reason: MOD PAIN Stop: 07/06/18 10:12 Last Admin: 05/07/18 17:15 Dose: 50 mg Trazodone HCl (Desyrel) 75 mg PO HS [facility]; Protocol Stop: 07/06/18 20:59 Last Admin: 05/09/18 21:11 Dose: 75 mg General: weak HEENT: NC/AT Neck: Supple Lungs: CTAB Cardiovascular: Normal S1, Normal S2 Abdomen: other (abd tenderness) Extremities: clear, edema - Procedures Procedures: Procedures Procedure Code Date COLONOSCOPY AND BIOPSY 64406 09/16/17 EXCISION OF RECTUM, ENDO, DIAGN [id number] 09/16/17 Internal Medicine Assmt/Plan - Assessment Assessment: rt upper abd pain diverticulitis fever sepsis h/o cva with rt sided weakness h/o htn h/o gerd h/o renal failure h/o gi bleed h/o bph h/o seisure h/o metabolic encephalopathy h/o cardiomegaly h/o atherosclerotic heart disease h/o major depression - Plan Plan: as per order sheet Nutritional Asmnt/Malnutr-PDOC - Dietary Evaluation Malnutrition Findings (Please click <Entered> for more info): Nutritional Asmnt/Malnutrition Start: 05/07/18 15: 14 Text: Status: Complete Freq: Protocol: Document 05/07/18 15:17 ROSY (Rec: 05/07/18 15:36 [email or web address]) Nutritional Asmnt/Malnutrition Patient General Information Nutritional Screening High Risk Consult Diagnosis diverticulitis Pertinent Medical Hx/Surgical Hx HTN, DM, PUD/GERD, s/p GI bleed, right sided hemiplegia, renal failure, BPH, toxic encephalopathy, hyperlipidemia , anxiety disorder, seizures, s/p sepsis, anemia, insomnia, atherosclerotic heart disease, heart failure, vascular disease, cardiomegaly, bronchitis, dysphagia, arthritis, cataracts, major depression Subjective Information Received diet consult for right buttocks wound. Pt eating lunch at time of visit. Required deputy commissioner d/t pt's polish speaking. Pt c/o meat not pureed enough; offered an additional portion of pureed meat (liquid-like) and pt was satisfied. Pt finished 90-100% of lunch and able to feed by himself. Current Diet Order/ Nutrition Support Pureed, BERTHA, CCHO Pertinent Medications norvasc, lipitor, D5-0.45ns, vit D3, colace, heparin, culturelle, levaquin, theragran, senna Pertinent Labs 05/07: Na 139, glucose 110 05/06: Na 135, glucose 111 Nutritional Hx/Data Height 1.73 m Height (Calculated Centimeters) 172.7 Current Weight (lbs) 102.739 kg Weight (Calculated Kilograms) 102.7 Weight (Calculated Grams) 302359.7 Ralph Body Weight 154 lb Body Mass Index (BMI) 34.4 Weight Status Obese GI Symptoms GI Symptoms None Last BM none noted Difficult in: None Food Allergies No Skin Integrity/Comment: right buttocks wound, non- pitting 2+ edema to right lower extremity, audra 13 Estimated Nutritional Goals BEE in Kcals: Adj wt of IBW Calories/Kcals/Kg 23-27 (based on adj wt 78.2 kg ) Kcals Calculated 5087-1341 Protein: Adj wt of IBW Protein g/k.8-1 Protein Calculated 63-78 g Fluid: ml 0855-3748 (1 ml/kcal) Nutritional Problem 1. Problem Problem Altered nutrition related lab value Etiology hyperglycemia, endocrine dysfunction Signs/Symptoms: glucose 110 Malnutrition Alert Is there a minimum of two criteria No selected? Query Text:Check all the applicable criteria. A minimum of two criteria are recommended for diagnosis of either severe or non-severe malnutrition. Malnutrition Related to Morbid Obesity Malnutrition related to morbid obesity No Intervention/Recommendation Comments 1. Continue with pureed, BERTHA, CCHO diet as ordered d/t elevated blood glucose and presence of edema 2. Monitor PO intake, wt, skin , and nutrition related labs 3. F/U as moderate risk in 3-5 days, 05/10-05/12 Expected Outcomes/Goals Expected Outcomes/Goals 1. PO intake to meet at least 75% of all meals 2. Wt stability, skin integrity to improve, nutrition related labs to approach normal limits Reviewed by Kaylie Cristobal RD
[2018-05-10] MEDS: Magnesium Hydroxide (MOM) 30 mL UDC PO SCH (11:39)
[2018-05-10] MEDS: Levofloxacin 500mg/100mL 500 MG/100 ML BAG IV SCH (11:39)
--- NOTE | 2018-05-10 22:49 | Consultation ---
DATE OF CONSULTATION: 05/10/2018 NEUROLOGY CONSULT HISTORY OF PRESENT ILLNESS: The patient is a 72-year-old. The patient may have abdominal pain. Sepsis. ID noted. The patient has lower lobe pneumonia. The patient in the moment more awake and alert, answering questions more appropriately. Still some abdominal pain and abdominal hernia. PAST MEDICAL HISTORY: 1. Stroke with right-sided hemiplegia, difficulty getting up. He is able to talk and answer some questions. 2. The patient has history of seizure disorder. 3. Renal failure. 4. Peptic ulcer disease. 5. Diabetes. 6. Hypertension. MEDICATIONS: As per reconciliation. Here, the patient is on [place], Norvasc, aspirin 81, atorvastatin, Cymbalta, Neurontin, Flagyl, Ultram, trazodone. REVIEW OF SYSTEMS: Twelve point negative except for above. PHYSICAL EXAMINATION: VITAL SIGNS: 99.5, blood pressure 140/70, pulse is 74. NECK: Supple, no bruits. HEART: Sounds S1, S2. LUNGS: Clear. NEUROLOGIC: The patient is awake, alert. The patient has some dysarthria, but able to answer questions. Right facial droop. Right arm limited movement. Right leg limited movement. ASSESSMENT: 1. Sepsis. 2. Pneumonia. 3. Abdominal pain, better. 4. Stroke, right side hemiplegia. 5. History of seizures. 6. Chronic pain. PLAN: Continue present treatment. Follow up outpatient with Neurology. JOB# [id number]
== END 2018-05-10 17:30 | DRG 720 ==
LOC: ER 20:10 → MSI 05-07 00:30
PROVIDERS: ADMIT Internal Medicine; ATTEND Internal Medicine
DX: A41.9 Sepsis, unspecified organism (principal); G92 Toxic encephalopathy; J18.1 Lobar pneumonia, unspecified organism; I69.951 Hemiplegia and hemiparesis following unspecified cerebrovascular disease affecting right dominant side; I10 Essential (primary) hypertension; I25.10 Atherosclerotic heart disease of native coronary artery without angina pectoris; N40.0 Benign prostatic hyperplasia without lower urinary tract symptoms; F32.9 Major depressive disorder, single episode, unspecified; R13.10 Dysphagia, unspecified; E11.9 Type 2 diabetes mellitus without complications; K21.9 Gastro-esophageal reflux disease without esophagitis; E78.5 Hyperlipidemia, unspecified; F41.9 Anxiety disorder, unspecified; K57.32 Diverticulitis of large intestine without perforation or abscess without bleeding; K27.9 Peptic ulcer, site unspecified, unspecified as acute or chronic, without hemorrhage or perforation; H26.9 Unspecified cataract; G40.909 Epilepsy, unspecified, not intractable, without status epilepticus; K59.00 Constipation, unspecified; G89.29 Other chronic pain; E66.9 Obesity, unspecified; Z68.33 Body mass index [BMI] 33.0-33.9, adult; Z79.4 Long term (current) use of insulin; Z88.0 Allergy status to penicillin; Z82.49 Family history of ischemic heart disease and other diseases of the circulatory system
CPT/HCPCS: 36415-UA; 71045-TC; 76700-TC; 80048-TC; 80061-TC; 80076-TC; 81001-TC; 82150-TC; 83605; 83690-TC; 84443-TC; 85007-TC; 85025-TC; 87070; 87804-TC; 90799; 94760; J0744; J1644; J1956; J7030; J7042; Z7610

== ENCOUNTER 2019-01-11 15:32 | Inpatient (IN) | payer MEDICAID ==
[2019-01-11] MEDS ORDERED: Sodium Chloride 0.9% 1,000 ML IV ONE (15:48)
[2019-01-11 16:27] LABS: % BASOPHILS 3.1 % (0.0-2.0); % EOSINOPHILS 8.1 % (0.0-5.0); % LYMPHOCYTES 15.7 % (20.0-50.0); % MONOCYTES 7.8 % (2.0-10.0); % NEUTROPHILS 65.3 % (40.0-80.0); BASOPHILE ABSOLUTE 0.2 Th/cumm (0-0.2); EOSINOPHILE ABSOLUTE 0.6 Th/cmm (0.1-0.4); HEMATOCRIT 42.1 % (41.0-60); LYMPHOCYTE ABSOLUTE 1.1 Th/cmm (1.5-3.0); MEAN CELL VOLUME 89.7 fl (80-99); MEAN CORPUSCULAR HEMOGLOBIN 29.8 pg (27.0-31.0); MEAN CORPUSCULAR HGB CONC 33.2 pg (28.0-36.0); MONOCYTE ABSOLUTE 0.5 Th/cmm (0.3-1.0); NEUTROPHILE ABSOLUTE 4.5 Th/cmm (1.8-8.0); PLATELET COUNT 195 Th/cmm (150-400); WHITE BLOOD COUNT 6.9 Th/cmm (4.8-10.8)
[2019-01-11 16:39] LABS: URINE SOURCE CLEAN C
[2019-01-11 16:42] LABS: URINE BILIRUBIN NEGATIVE (NEGATIVE); URINE BLOOD NEGATIVE (NEGATIVE); URINE GLUCOSE (UA) NEGATIVE (NEGATIVE); URINE KETONE NEGATIVE (NEGATIVE); URINE LEUKOCYTE ESTERASE NEGATIVE (NEGATIVE); URINE NITRATE NEGATIVE (NEGATIVE); URINE PROTEIN NEGATIVE (NEGATIVE)
[2019-01-11 16:43] LABS: URINE CLARITY CLEAR (CLEAR); URINE COLOR YELLOW; URINE MICROSCOPIC INDICATED? YES
[2019-01-11 16:48] LABS: URINE AMORPHOUS SEDIMENT FEW PHOSPHATES (NONE SEEN); URINE BACTERIA 1+ /hpf (NONE SEEN); URINE EPITHELIAL CELLS OCCASIONAL /lpf (FEW); URINE RBC 0-2 /hpf (0-5); URINE WBC 0-2 /hpf (0-5)
[2019-01-11 16:50] LABS: ALB/GLOB RATIO 1.4 (1.0-1.8); ALBUMIN 4.2 gm/dL (4.2-5.5); ALKALINE PHOSPHATASE 77 U/L (34-104); BILIRUBIN,TOTAL 0.4 mg/dL (0.3-1.0); BUN - UREA NITROGEN 13 mg/dL (7-25); CALCIUM SERUM 9.5 mg/dL (8.6-10.3); CARBON DIOXIDE 27.9 mEq/L (21.0-31.0); CHLORIDE 102 mEq/L (98-107); CHOLESTEROL 134 mg/dL (<200); CREATININE - SERUM 0.8 mg/dL (0.7-1.3); CREATININE KINASE 80 U/L (30-223); GLUCOSE 115 mg/dL (70-105); HDL -HIGH DENSITY LIPOPROTEIN 31 mg/dL (23-92); INR 1.02 (0.5-1.4); POTASSIUM SERUM 3.9 mEq/L (3.5-5.1); SGOT 33 U/L (13-39); SGPT/ALT 31 U/L (7-52); SODIUM SERUM 138 mEq/L (136-145); TOTAL PROTEIN,SERUM 7.3 gm/dL (6.0-8.3); TRIGLYCERIDES 200 mg/dL (<150)
[2019-01-11 16:51] LABS: AMYLASE SERUM 75 U/L (29-103); LIPASE 42 U/L (11-82)
--- NOTE | 2019-01-11 17:49 | ED Physician Chart ---
ED Chief Complaint/HPI - Patient Information Date Seen:: 01/11/19 Time Seen:: 15:35 Chief Complaint:: Abdominal Pain History of Present Illness:: onset x 12 hours of Abdominal Pain, fever, N/V/D; no report of trauma, H/As, neck pain, cough, C/P, SOB, A/C, chills, or urinary s/s Allergies:: Allergies Allergy/AdvReac Type Severity Reaction Status Date / Time Penicillins Allergy Verified 09/16/17 13:04 Vitals:: Vital Signs - 8 hr 01/11/19 01/11/19 15:36 17:07 Temp 100 F HR 80 71 RR 16 17 BP 132/70 117/60 O2 Sat % 92 94 Historian:: Patient, EMS Review:: Nurse's Note Reviewed, Old Chart Reviewed, EMS run form Reviewed ED Review of Systems - Review of Systems General/Constitutional: No fever, No chills, No weight loss, No weakness, No diaphoresis, No edema, No loss of appetite Skin: No skin lesions, No rash, No bruising Head: No headache, No light-headedness Eyes: No loss of vision, No pain, No diplopia ENT: No earache, No nasal drainage, No sore throat, No tinnitus Neck: No neck pain, No swelling, No thyromegaly, No stiffness, No mass noted Cardio Vascular: No chest pain, No palpitations, No PND, No orthopnea, No edema Pulmonary: No SOB, No cough, No sputum, No wheezing GI: Nausea, Vomiting, Diarrhea, Pain, No melena, No hematochezia, No constipation, No hematemesis G/U: No dysuria, No frequency, No hematuria, No nacturia Musculoskeletal: No bone or joint pain, No back pain, No muscle pain Endocrine: No polyuria, No polydipsia Psychiatric: Prior psych history, Depression, Anxiety, No suicidal ideation, No homicidal ideation, No auditory hallucination, No visual hallucination Hematopoietic: No bruising, No lymphadenopathy Allergic/Immuno: No urticaria, No angioedema Neurological: No syncope, No focal symptoms, No weakness, No paresthesia, No headache, No seizure, No dizziness, No confusion, No vertigo ED Past Medical History - Past Medical History Obtainable: Yes Past Medical History: HTN, DM, CAD, Asthma/COPD, CVA/TIA, Dyslipidemia, PUD/GERD , Seizures Family History: Diabetes Melitus, HTN Social History: Smoker, Alcohol, No Drug Use, Single, Care Facility Surgical History: None Psychiatricy History: Depression Medication: Reviewed Family Medical History - Family Member Mother History Unknown: Yes Ethnicity: Hx Family Hypertension: Yes ED Physical Exam - Physical Examination General/Constitutional: Awake, Well-developed, well-nourished, Alert, No distress, GCS 15, Non-toxic appearing, Ambulatory Head: Atraumatic Eyes: Lids, conjuctiva normal, PERRL, EOMI Skin: Nl inspection, No rash, No skin lesions, No ecchymosis, Well hydrated, No lymphadenopathy ENMT: External ears, nose nl, TM canals nl, Nasal exam nl, Lips, teeth, gums nl , Oropharynx nl, Tonsils nl Neck: Nontender, Full ROM w/o pain, No JVD, No nuchal rigidity, No bruit, No mass, No stridor Respiratory: Nl effort/Exclusion, Clear to Auscultation, No Wheeze/Rhonchi/Rales Cardio Vascular: RRR, No murmur, gallop, rubs, NL S1 S2, Carotid/Femoral/Distal pulses equal bilaterally GI: No tenderness/rebounding/guarding, No organomegaly, No hernia, Normal BS's, Nondistended, No mass/bruits, No McBurney tenderness, Rectum exam nl Other GI comments:: no pulsatile masses; + LLQ Tenderness; + Right Inguinal Hernia : No CVA tenderness Extremities: No tenderness or effusion, Full ROM, normal strength in all extremities, No edema, Normal digits & nails Neuro/Psych: Alert/oriented, DTR's symmetric, Normal sensory exam, Normal motor strength, Judgement/insight normal, Mood normal, Normal gait, No focal deficits Misc: Normal back, No paraspinal tenderness ED Labs/Radiology/EKG Results - Lab Results Results: Laboratory Tests 01/11/19 01/11/19 01/11/19 15:30 16:18 16:18 WBC 6.9 RBC 4.70 Hgb 14.0 Hct 42.1 MCV 89.7 MCH 29.8 MCHC Differential 33.2 RDW 13.0 Plt Count 195 MPV 8.2 Neutrophils % 65.3 Lymphocytes % 15.7 L Monocytes % 7.8 Eosinophils % 8.1 H Basophils % 3.1 H PT 10.6 INR 1.02 Sodium Potassium Chloride Carbon Dioxide Anion Gap BUN Creatinine Est GFR ( Amer) Est GFR (Non-Af Amer) BUN/Creatinine Ratio Glucose Calcium Total Bilirubin AST ALT Alkaline Phosphatase Creatine Kinase Troponin I B-Natriuretic Peptide Total Protein Albumin Globulin Albumin/Globulin Ratio Triglycerides Cholesterol LDL Cholesterol Direct HDL Cholesterol Amylase Lipase Urine Source CLEAN C Urine Color YELLOW Urine Clarity CLEAR Urine pH 7.0 Ur Specific [place] 1.010 Urine Protein NEGATIVE Urine Glucose (UA) NEGATIVE Urine Ketones NEGATIVE Urine Blood NEGATIVE Urine Nitrate NEGATIVE Urine Bilirubin NEGATIVE Urine Urobilinogen 1.0 Ur Leukocyte Esterase NEGATIVE Urine RBC 0-2 H Urine WBC 0-2 Ur Epithelial Cells OCCASIONAL Amorphous Sediment FEW PHOSPHATES Urine Bacteria 1+ H 01/11/19 01/11/19 01/11/19 16:18 16:18 16:18 WBC RBC Hgb Hct MCV MCH MCHC Differential RDW Plt Count MPV Neutrophils % Lymphocytes % Monocytes % Eosinophils % Basophils % PT INR Sodium 138 Potassium 3.9 Chloride 102 Carbon Dioxide 27.9 Anion Gap 12.0 BUN 13 Creatinine 0.8 Est GFR ( Amer) TNP Est GFR (Non-Af Amer) TNP BUN/Creatinine Ratio 16.3 Glucose 115 H Calcium 9.5 Total Bilirubin 0.4 AST 33 ALT 31 Alkaline Phosphatase 77 Creatine Kinase 80 Troponin I 0.03 B-Natriuretic Peptide 23.9 Total Protein 7.3 Albumin 4.2 Globulin 3.1 Albumin/Globulin Ratio 1.4 Triglycerides 200 H Cholesterol 134 LDL Cholesterol Direct 83 HDL Cholesterol 31 Amylase Lipase Urine Source Urine Color Urine Clarity Urine pH Ur Specific [place] Urine Protein Urine Glucose (UA) Urine Ketones Urine Blood Urine Nitrate Urine Bilirubin Urine Urobilinogen Ur Leukocyte Esterase Urine RBC Urine WBC Ur Epithelial Cells Amorphous Sediment Urine Bacteria 01/11/19 16:18 WBC RBC Hgb Hct MCV MCH MCHC Differential RDW Plt Count MPV Neutrophils % Lymphocytes % Monocytes % Eosinophils % Basophils % PT INR Sodium Potassium Chloride Carbon Dioxide Anion Gap BUN Creatinine Est GFR ( Amer) Est GFR (Non-Af Amer) BUN/Creatinine Ratio Glucose Calcium Total Bilirubin AST ALT Alkaline Phosphatase Creatine Kinase Troponin I B-Natriuretic Peptide Total Protein Albumin Globulin Albumin/Globulin Ratio Triglycerides Cholesterol LDL Cholesterol Direct HDL Cholesterol Amylase 75 Lipase 42 Urine Source Urine Color Urine Clarity Urine pH Ur Specific [place] Urine Protein Urine Glucose (UA) Urine Ketones Urine Blood Urine Nitrate Urine Bilirubin Urine Urobilinogen Ur Leukocyte Esterase Urine RBC Urine WBC Ur Epithelial Cells Amorphous Sediment Urine Bacteria Comments:: Reviewed - Radiology Results Comments:: + Right Inguinal Hernia; Diverticulosis - EKG Interpretations EKG Time:: 17:14 Rate & Rhythm: 64; NSR Comments:: LVH; T-Wave Inversions; non-specific st-t changes ED Septic Shock - . Is Septic Shock (SBP<90, OR Lactate>4 mmol\L) present?: No - <6hrs of presentation: Vital Signs: Vital Signs - 8 hr 01/11/19 01/11/19 15:36 17:07 Temp 100 F HR 80 71 RR 16 17 BP 132/70 117/60 O2 Sat % 92 94 ED Reassessment (Disposition) - Reassessment Reassessment Condition:: Improved - Diagnosis Diagnosis:: Abdominal Pain; Diverticulitis; UTI; Myocardial Ischemia; N/V/D; AGE; Diverticulosis; Right Inguinal Hernia; Fever; Sepsis - Aftercare/Follow up Instructions Aftercare/Follow-Up Instructions:: Counseled pt regarding lab results/diagnosis & need follow up, Counseled pt & family regarding lab results/diagnosis & need follow up - Patient Disposition Discharge/Transfer:: Acute Care w/in this hosp Accepting Physician:: Dr. Gracia Amaro Time Called:: 1700 Time Responded:: 17:00 Admitted to:: Telemetry Spoke to:: Dr. Gracia Amaro Admitting Medical Physician:: Dr. Gracia Amaro Condition at Disposition:: Stable, Improved
[2019-01-11] MEDS ORDERED: Levofloxacin 500mg/100mL 500 MG/100 ML BAG IV ONE ×2 (17:53→18:08)
[2019-01-11 20:52] VITALS: BP 130/70
[2019-01-11] MEDS: Hydrocodone/APAP 5mg/325mg Tab PO PRN (22:37)
--- NOTE | 2019-01-12 10:30 | History & Physical ---
ADMIT DATE: 01/11/2019 CHIEF COMPLAINT: Abdominal pain. HISTORY OF PRESENT ILLNESS: The patient is a 73-year-old male with a past medical history of CKD, hypertension, CHF, BPH, obesity, diabetes mellitus type 2, brought in from nursing facility for abdominal pain for many months. The patient denies any nausea, vomiting, diarrhea or constipation. The patient denies any abdominal pain. CT scan of abdomen and pelvis showed no evidence of any acute abnormalities except diverticulosis. (This is the report given to me by ER physician, ____). I was also informed by ____, the ER physician that patient had UTI. PAST MEDICAL HISTORY: CKD, hypertension, CHF, BPH, obesity, diabetes mellitus type 2, and anxiety disorder. ALLERGIES: PENICILLIN. OPERATIONS: None. MEDICATIONS: As per medication reconciliation sheet. FAMILY HISTORY: Noncontributory. SOCIAL HISTORY: The patient lives at nursing facility. No history of smoking, alcohol or drug use. REVIEW OF SYSTEMS: GENERAL: The patient has no fever, no chills, no generalized weakness. HEENT: No diplopia, no photophobia, no sore throat, no congestion, no ear or eye discharge. RESPIRATORY: The patient denies any cough or shortness of breath. CVS: The patient denies any chest pain or palpitation or leg swelling. GASTROINTESTINAL: The patient denies any nausea, vomiting, diarrhea or constipation. The patient complains of right upper quadrant abdominal pain. GENITOURINARY: No dysuria, no hematuria. NEUROLOGIC: No headache, no dizziness, no focal weakness. PHYSICAL EXAMINATION: VITAL SIGNS: Current vital signs shows temperature is 98.1 degrees Fahrenheit, pulse 71, respirations 18, and blood pressure 143/89. GENERAL: The patient is comfortable, obese, and anxious. SKIN: Intact and dry. HEENT: Head is normocephalic, atraumatic. Oral cavity moist, pink tongue. EYES: No pallor, no icterus. Pupils PERRLA, EOMI. NECK: Supple, no JVD, no carotid bruit. Trachea in midline. CHEST: Bilateral breath sounds. No crackles or wheezing. HEART: S1, S2 within normal limits. Regular rhythm. No murmur, no gallop. ABDOMEN: Soft, globular. The patient had right upper quadrant tenderness, probably the patient has hepatomegaly. The bowel sounds present and normoactive. EXTREMITIES: No cyanosis, no clubbing, no edema. NEUROLOGIC: Alert, awake, oriented x 3. GENITOURINARY: The patient has groin redness. MUSCULOSKELETAL: No joint pain. No joint tenderness. LABORATORY DATA: Reviewed. Current lab shows WBC count is 6900, hemoglobin 14, hematocrit 42.1, platelets are 195,000, and neutrophil is 65%. Sodium is 138, potassium 3.9, chloride 102, bicarbonate is 27.9, BUN is 13, creatinine 0.8, glucose of 115. LFTs are reviewed, within normal limit. Triglyceride is 200. Lipase is 42. Amylase 75. BNP 24. INR 1.02. Urinalysis shows negative leukoesterase, nitrite negative, rbc's 0-2, wbc's 0-2 and 1+ bacteria. IMPRESSION: 1. Abdominal pain. 2. Obesity. 3. Diabetes mellitus type 2. 4. Hypertension. 5. History of diverticulitis. 6. Congestive heart failure. 7. Chronic kidney disease. 8. Tinea cruris. 9. Benign prostatic hypertrophy. 10. Anxiety disorder. RECOMMENDATIONS AND PLAN: We will get GI consult. Recheck the labs. We will ask for Cardiology consult. Continue home medication. Apply Lotrisone in groins. SCD and Protonix. JOB# [id number]
--- NOTE | 2019-01-12 10:30 | Diagnostic Imaging Report ---
CT abdomen and pelvis without intravenous contrast Indication: Abdominal pain Comparison: CT abdomen and pelvis performed on 05/06/2018, Technique: Axial images were obtained from the lung bases to the bilateral proximal femurs without IV contrast. Coronal reconstructions were made. total DLP: 926, CTDI17.5 FINDINGS: Hypoventilatory changes of the lung bases are noted. Atelectatic changes of the lung bases are also noted. Assessment of solid organs is limited due to lack of IV contrast. There is diffuse fatty infiltration of the liver with mildly prominent liver noted including enlargement of the left lobe. No discrete focal lesions. No focal splenic, pancreatic, or adrenal lesions. No evidence of hydronephrosis or focal renal lesions. Distended urinary bladder is noted. Prostate gland calcifications are noted. Moderate sized right inguinal hernia is noted. Moderate stool is seen throughout the colon. Diverticulosis is seen throughout the colon without evidence of diverticulitis. No appendicitis. Nonspecific fluid-filled loops of small bowel are noted. There is minimal haziness seen along the mesenteric, retroperitoneal, and pelvic fat planes. No free fluid or free air. Degenerative changes of the spine are noted. IMPRESSION: Diverticulosis without evidence of diverticulitis. Minimal nonspecific haziness involving the mesenteric, retroperitoneal and pelvic fat planes significance uncertain may be due to underlying inflammatory process. Hepatic steatosis. Mild hepatomegaly is seen particularly of the left lobe. Distended urinary bladder Moderate sized fat-containing right inguinal hernia.
[2019-01-12] MEDS: Hydrocodone/APAP 5mg/325mg Tab PO PRN ×2 (10:42→23:54)
[2019-01-12] MEDS: POLYETHYLENE GLYCOL 3350 17 GM PACK PO SCH (17:33)
[2019-01-12] MEDS: Docusate Sodium/Senna Tab PO SCH (17:33)
[2019-01-12] MEDS: Betamethasone/Clotrimazole Cream 15 gm Tube TP SCH (17:33)
--- NOTE | 2019-01-13 01:05 | Consultation ---
DATE OF CONSULTATION: 01/12/2019 INPATIENT GASTROINTESTINAL CONSULTATION REFERRING PHYSICIAN: Dr. Miguel Amaro REASON FOR CONSULTATION: Abdominal pain. HISTORY OF PRESENT ILLNESS: This is a 73-year-old male with generalized abdominal pain. The patient is a somewhat poor historian. He states that he can feel his abdomen moving around. He denies having any nausea, vomiting, hematemesis, or coffee-ground emesis. Denies having any diarrhea, melena, or hematochezia, but does have some constipation. He states that when he is at his facility, he is given some yogurt, and he does have a bowel movement. PAST MEDICAL HISTORY: Chronic kidney disease, hypertension, congestive heart failure, BPH, obesity, diabetes, anxiety disorder. PAST SURGICAL HISTORY: None to add recently. FAMILY HISTORY: Noncontributory. SOCIAL HISTORY: Resident of a longterm facility. No tobacco, alcohol, or IV drug usage. ALLERGIES: PENICILLIN. CURRENT MEDICATIONS: [place], Lotrisone cream, and Protonix. REVIEW OF SYSTEMS: Ten point review of systems was performed and the pertinent positives were the abdominal pain and constipation. All the systems were otherwise negative. PHYSICAL EXAMINATION: VITAL SIGNS: Temperature is 97.8, breathing 18, pulse 78, blood pressure 135/92, saturating 97%. GENERAL: In no apparent distress. EYES: Anicteric. Normal conjunctivae. HEENT: Normocephalic, atraumatic. Moist mucous membranes. NECK: Soft, supple. CHEST: Clear. CARDIOVASCULAR: Regular rate and rhythm. ABDOMEN: Soft, nontender, nondistended, obese. SKIN: Warm, dry. EXTREMITIES: Reveal no cyanosis. PSYCHOLOGIC: Alert and oriented x3. LABORATORY DATA: Show white count 6.9, hemoglobin 14, platelets 195. INR 1.02. Creatinine 0.8, total bilirubin 0.4, AST 33, ALT 31, alkaline phosphatase 77, amylase 75, lipase 42. The UA was negative for leukocyte esterase. A CT abdomen and pelvis showed fatty liver, diverticulosis without diverticulitis, nonspecific haziness involving the mesentery, retroperitoneal, and pelvic fat planes of unclear significance and then a right inguinal hernia. IMPRESSION: A 73-year-old male with generalized abdominal pain, cause is unknown, could be related to fatty liver. However, his LFTs are normal. For this condition, he should gradually lose weight as there is no current pharmacological therapy for fatty liver disease. The patient also has an inguinal hernia that does not appear to be in the region of his discomfort, but if this ever causes a problem, he should have surgical evaluation. Regarding his constipation, he was offered endoscopic evaluation, including colonoscopy, which he refused. He was made aware that failure to have proper workup could result in a missed diagnosis, missed cure and treatment opportunity resulting in early or unforeseeable disability. He expressed understanding and declined. I suppose we could provide him with some laxatives to see if that would help improve his bowel movements and improve his abdominal discomfort. He is on opioids and therefore could benefit from certain medications that help with opioid-induced chronic constipation. PLAN: 1. Amitiza. 2. Provide the patient with some Go[place]TELY. 3. Colonoscopy was offered, the patient refused. 4. Gradual weight loss. 5. Consider inguinal hernia surgery if this ever becomes symptomatic. Thank you for allowing me to participate. Please call me if you have any questions. [facility]# [id number]
[2019-01-13] MEDS: Hydrocodone/APAP 5mg/325mg Tab PO PRN ×2 (06:11→12:28)
[2019-01-13 06:52] LABS: % BASOPHILS 0.6 % (0.0-2.0); % EOSINOPHILS 5.3 % (0.0-5.0); % LYMPHOCYTES 20.8 % (20.0-50.0); % MONOCYTES 7.7 % (2.0-10.0); % NEUTROPHILS 65.6 % (40.0-80.0); EOSINOPHILE ABSOLUTE 0.3 Th/cmm (0.1-0.4); HEMATOCRIT 43.5 % (41.0-60); HEMOGLOBIN 14.7 gm/dL (12-16); LYMPHOCYTE ABSOLUTE 1.4 Th/cmm (1.5-3.0); MEAN CELL VOLUME 88.6 fl (80-99); MEAN CORPUSCULAR HEMOGLOBIN 29.9 pg (27.0-31.0); MEAN CORPUSCULAR HGB CONC 33.8 pg (28.0-36.0); MONOCYTE ABSOLUTE 0.5 Th/cmm (0.3-1.0); NEUTROPHILE ABSOLUTE 4.4 Th/cmm (1.8-8.0); PLATELET COUNT 190 Th/cmm (150-400); RED BLOOD COUNT 4.91 Mil/cmm (3.80-5.80); RED CELL DISTRIBUTION WIDTH 13.1 % (11.5-20.0); WHITE BLOOD COUNT 6.6 Th/cmm (4.8-10.8)
[2019-01-13 08:03] LABS: ALB/GLOB RATIO 1.4 (1.0-1.8); ALBUMIN 4.3 gm/dL (4.2-5.5); ALKALINE PHOSPHATASE 63 U/L (34-104); ANION GAP 11.7 (7.0-16.0); BILIRUBIN,TOTAL 0.6 mg/dL (0.3-1.0); BUN - UREA NITROGEN 11 mg/dL (7-25); CALCIUM SERUM 9.4 mg/dL (8.6-10.3); CARBON DIOXIDE 25.9 mEq/L (21.0-31.0); CHLORIDE 105 mEq/L (98-107); CREATININE - SERUM 0.7 mg/dL (0.7-1.3); GLUCOSE 135 mg/dL (70-105); POTASSIUM SERUM 3.6 mEq/L (3.5-5.1); SGOT 22 U/L (13-39); SGPT/ALT 23 U/L (7-52); SODIUM SERUM 139 mEq/L (136-145); TOTAL PROTEIN,SERUM 7.3 gm/dL (6.0-8.3)
[2019-01-13] MEDS: POLYETHYLENE GLYCOL 3350 17 GM PACK PO SCH (08:18)
[2019-01-13] MEDS: Docusate Sodium/Senna Tab PO SCH (08:18)
[2019-01-13] MEDS: Betamethasone/Clotrimazole Cream 15 gm Tube TP SCH (08:18)
--- NOTE | 2019-01-13 10:16 | Diagnostic Imaging Report ---
Portable chest x-ray HISTORY: Pain The heart size appears somewhat generous. No acute focal pulmonary processes. No hilar or mediastinal abnormalities. IMPRESSION: 1. No acute abnormalities 2. Suggestion of a somewhat generous overall heart size
--- NOTE | 2019-01-13 12:10 | General Progress Note ---
Subjective - Review of Systems Service Date: 01/13/19 Subjective: Left abdominal pain Patient refused colonoscopy Objective - Results Result Diagrams: 01/13/19 06:30 01/13/19 06:30 Recent Labs: Laboratory Last Values WBC 6.6 Th/cmm (4.8-10.8) 01/13/19 06:30 RBC 4.91 Mil/cmm (3.80-5.80) 01/13/19 06:30 Hgb 14.7 gm/dL (12-16) 01/13/19 06:30 Hct 43.5 % (41.0-60) 01/13/19 06:30 MCV 88.6 fl (80-99) 01/13/19 06:30 MCH 29.9 pg (27.0-31.0) 01/13/19 06:30 MCHC Differential 33.8 pg (28.0-36.0) 01/13/19 06:30 RDW 13.1 % (11.5-20.0) 01/13/19 06:30 Plt Count 190 Th/cmm (150-400) 01/13/19 06:30 MPV 8.0 fl 01/13/19 06:30 Neutrophils % 65.6 % (40.0-80.0) 01/13/19 06:30 Lymphocytes % 20.8 % (20.0-50.0) 01/13/19 06:30 Monocytes % 7.7 % (2.0-10.0) 01/13/19 06:30 Eosinophils % 5.3 % (0.0-5.0) H 01/13/19 06:30 Basophils % 0.6 % (0.0-2.0) 01/13/19 06:30 PT 10.6 SECONDS (9.5-11.5) 01/11/19 16:18 INR 1.02 (0.5-1.4) 01/11/19 16:18 Sodium 139 mEq/L (136-145) 01/13/19 06:30 Potassium 3.6 mEq/L (3.5-5.1) 01/13/19 06:30 Chloride 105 mEq/L (98-107) 01/13/19 06:30 Carbon Dioxide 25.9 mEq/L (21.0-31.0) 01/13/19 06:30 Anion Gap 11.7 (7.0-16.0) 01/13/19 06:30 BUN 11 mg/dL (7-25) 01/13/19 06:30 Creatinine 0.7 mg/dL (0.7-1.3) 01/13/19 06:30 Est GFR ( Amer) TNP 01/13/19 06:30 Est GFR (Non-Af Amer) TNP 01/13/19 06:30 BUN/Creatinine Ratio 15.7 01/13/19 06:30 Glucose 135 mg/dL (70-105) H 01/13/19 06:30 Calcium 9.4 mg/dL (8.6-10.3) 01/13/19 06:30 Total Bilirubin 0.6 mg/dL (0.3-1.0) 01/13/19 06:30 AST 22 U/L (13-39) 01/13/19 06:30 ALT 23 U/L (7-52) 01/13/19 06:30 Alkaline Phosphatase 63 U/L (34-104) 01/13/19 06:30 Creatine Kinase 80 U/L (30-223) 01/11/19 16:18 Troponin I 0.03 ng/mL (0.01-0.05) 01/11/19 16:18 B-Natriuretic Peptide 23.9 pg/mL (5.0-100.0) 01/11/19 16:18 Total Protein 7.3 gm/dL (6.0-8.3) 01/13/19 06:30 Albumin 4.3 gm/dL (4.2-5.5) 01/13/19 06:30 Globulin 3.0 gm/dL 01/13/19 06:30 Albumin/Globulin Ratio 1.4 (1.0-1.8) 01/13/19 06:30 Triglycerides 200 mg/dL (<150) H 01/11/19 16:18 Cholesterol 134 mg/dL (<200) 01/11/19 16:18 LDL Cholesterol Direct 83 mg/dL (75-193) 01/11/19 16:18 HDL Cholesterol 31 mg/dL (23-92) 01/11/19 16:18 Amylase 75 U/L (29-103) 01/11/19 16:18 Lipase 42 U/L (11-82) 01/11/19 16:18 Urine Source CLEAN C 01/11/19 15:30 Urine Color YELLOW 01/11/19 15:30 Urine Clarity CLEAR (CLEAR) 01/11/19 15:30 Urine pH 7.0 (4.6 - 8.0) 01/11/19 15:30 Ur Specific [place] 1.010 (1.005-1.030) 01/11/19 15:30 Urine Protein NEGATIVE mg/dL (NEGATIVE) 01/11/19 15:30 Urine Glucose (UA) NEGATIVE mg/dL (NEGATIVE) 01/11/19 15:30 Urine Ketones NEGATIVE mg/dL (NEGATIVE) 01/11/19 15:30 Urine Blood NEGATIVE (NEGATIVE) 01/11/19 15:30 Urine Nitrate NEGATIVE (NEGATIVE) 01/11/19 15:30 Urine Bilirubin NEGATIVE (NEGATIVE) 01/11/19 15:30 Urine Urobilinogen 1.0 E.U./dL (0.2 - 1.0) 01/11/19 15:30 Ur Leukocyte Esterase NEGATIVE (NEGATIVE) 01/11/19 15:30 Urine RBC 0-2 /hpf (0-5) H 01/11/19 15:30 Urine WBC 0-2 /hpf (0-5) 01/11/19 15:30 Ur Epithelial Cells OCCASIONAL /lpf (FEW) 01/11/19 15:30 Amorphous Sediment FEW PHOSPHATES (NONE SEEN) 01/11/19 15:30 Urine Bacteria 1+ /hpf (NONE SEEN) H 01/11/19 15:30 - Physical Exam Vitals and I&O: Vital Signs Temp 98.4 F 01/13/19 00:00 Pulse 66 01/13/19 07:22 Resp 18 01/13/19 08:00 BP 145/88 01/13/19 00:00 Pulse Ox 98 01/13/19 07:22 Intake & Output 01/12/19 01/13/19 01/13/19 18:59 06:59 18:59 Intake Total 615 Output Total 1001 Balance -386 Weight (lbs) 104.78 kg Intake: Oral 615 Output: Urine 1000 Stool 1 Other: Weight Source Bedscale Active Medications: Current Medications Acetaminophen/Hydrocodone Bitart ([place] 5mg/325mg) 1 tab PO Q4H PRN PRN Reason: MODERATE PAIN Stop: 03/12/19 22:25 Last Admin: 01/13/19 06:11 Dose: 1 tab Betamethasone/Clotrimazole (Lotrisone Cream) 1 appl TP BID [facility] Stop: 03/13/19 16:59 Last Admin: 01/13/19 08:18 Dose: Not Given Pantoprazole Sodium (Protonix) 40 mg IVP DAILY [facility] Stop: 03/13/19 08:59 Last Admin: 01/13/19 08:18 Dose: 40 mg Polyethylene Glycol (Miralax) 17 gm PO DAILY [facility] Stop: 03/13/19 13:14 Last Admin: 01/13/19 08:18 Dose: Not Given Sennosides (Senna Plus 50 Mg-8.6 Mg) 1 tab PO BID [facility] Stop: 03/13/19 16:59 Last Admin: 01/13/19 08:18 Dose: Not Given General: Alert, No acute distress HEENT: Mucous membr. moist/pink Neck: Supple, +2 carotid pulse wo bruit Cardiovascular: Regular rate, Normal S1, Normal S2, Systolic murmurs Lungs: Clear to auscultation, Normal air movement Abdomen: Bowel sounds, Soft, Other Neurological: Normal gait, Normal tone, Cranial nerves 3-12 NL, Reflexes 2+ - Procedures Procedures: Procedures Procedure Code Date COLONOSCOPY AND BIOPSY 63679 09/16/17 EXCISION OF RECTUM, ENDO, DIAGN [id number] 09/16/17 Assessment/Plan - Assessment Assessment: Abdominal pain Diverticulosis Chronic congestive heart failure Hypertension Diabetes mellitus type 2 Bph Obesity - Plan Plan: Diffuse EGD continue present management
--- NOTE | 2019-01-13 12:23 | GI Progress Note ---
Subjective - Review of Systems Subjective: DENIES ABD PAIN FEELS MUCH BETTER SINCE HAVING BM GI OBJECTIVE - Results Result Diagrams: 01/13/19 06:30 01/13/19 06:30 Recent Labs: Laboratory Last Values WBC 6.6 Th/cmm (4.8-10.8) 01/13/19 06:30 RBC 4.91 Mil/cmm (3.80-5.80) 01/13/19 06:30 Hgb 14.7 gm/dL (12-16) 01/13/19 06:30 Hct 43.5 % (41.0-60) 01/13/19 06:30 MCV 88.6 fl (80-99) 01/13/19 06:30 MCH 29.9 pg (27.0-31.0) 01/13/19 06:30 MCHC Differential 33.8 pg (28.0-36.0) 01/13/19 06:30 RDW 13.1 % (11.5-20.0) 01/13/19 06:30 Plt Count 190 Th/cmm (150-400) 01/13/19 06:30 MPV 8.0 fl 01/13/19 06:30 Neutrophils % 65.6 % (40.0-80.0) 01/13/19 06:30 Lymphocytes % 20.8 % (20.0-50.0) 01/13/19 06:30 Monocytes % 7.7 % (2.0-10.0) 01/13/19 06:30 Eosinophils % 5.3 % (0.0-5.0) H 01/13/19 06:30 Basophils % 0.6 % (0.0-2.0) 01/13/19 06:30 PT 10.6 SECONDS (9.5-11.5) 01/11/19 16:18 INR 1.02 (0.5-1.4) 01/11/19 16:18 Sodium 139 mEq/L (136-145) 01/13/19 06:30 Potassium 3.6 mEq/L (3.5-5.1) 01/13/19 06:30 Chloride 105 mEq/L (98-107) 01/13/19 06:30 Carbon Dioxide 25.9 mEq/L (21.0-31.0) 01/13/19 06:30 Anion Gap 11.7 (7.0-16.0) 01/13/19 06:30 BUN 11 mg/dL (7-25) 01/13/19 06:30 Creatinine 0.7 mg/dL (0.7-1.3) 01/13/19 06:30 Est GFR ( Amer) TNP 01/13/19 06:30 Est GFR (Non-Af Amer) TNP 01/13/19 06:30 BUN/Creatinine Ratio 15.7 01/13/19 06:30 Glucose 135 mg/dL (70-105) H 01/13/19 06:30 Calcium 9.4 mg/dL (8.6-10.3) 01/13/19 06:30 Total Bilirubin 0.6 mg/dL (0.3-1.0) 01/13/19 06:30 AST 22 U/L (13-39) 01/13/19 06:30 ALT 23 U/L (7-52) 01/13/19 06:30 Alkaline Phosphatase 63 U/L (34-104) 01/13/19 06:30 Creatine Kinase 80 U/L (30-223) 01/11/19 16:18 Troponin I 0.03 ng/mL (0.01-0.05) 01/11/19 16:18 B-Natriuretic Peptide 23.9 pg/mL (5.0-100.0) 01/11/19 16:18 Total Protein 7.3 gm/dL (6.0-8.3) 01/13/19 06:30 Albumin 4.3 gm/dL (4.2-5.5) 01/13/19 06:30 Globulin 3.0 gm/dL 01/13/19 06:30 Albumin/Globulin Ratio 1.4 (1.0-1.8) 01/13/19 06:30 Triglycerides 200 mg/dL (<150) H 01/11/19 16:18 Cholesterol 134 mg/dL (<200) 01/11/19 16:18 LDL Cholesterol Direct 83 mg/dL (75-193) 01/11/19 16:18 HDL Cholesterol 31 mg/dL (23-92) 01/11/19 16:18 Amylase 75 U/L (29-103) 01/11/19 16:18 Lipase 42 U/L (11-82) 01/11/19 16:18 Urine Source CLEAN C 01/11/19 15:30 Urine Color YELLOW 01/11/19 15:30 Urine Clarity CLEAR (CLEAR) 01/11/19 15:30 Urine pH 7.0 (4.6 - 8.0) 01/11/19 15:30 Ur Specific [place] 1.010 (1.005-1.030) 01/11/19 15:30 Urine Protein NEGATIVE mg/dL (NEGATIVE) 01/11/19 15:30 Urine Glucose (UA) NEGATIVE mg/dL (NEGATIVE) 01/11/19 15:30 Urine Ketones NEGATIVE mg/dL (NEGATIVE) 01/11/19 15:30 Urine Blood NEGATIVE (NEGATIVE) 01/11/19 15:30 Urine Nitrate NEGATIVE (NEGATIVE) 01/11/19 15:30 Urine Bilirubin NEGATIVE (NEGATIVE) 01/11/19 15:30 Urine Urobilinogen 1.0 E.U./dL (0.2 - 1.0) 01/11/19 15:30 Ur Leukocyte Esterase NEGATIVE (NEGATIVE) 01/11/19 15:30 Urine RBC 0-2 /hpf (0-5) H 01/11/19 15:30 Urine WBC 0-2 /hpf (0-5) 01/11/19 15:30 Ur Epithelial Cells OCCASIONAL /lpf (FEW) 01/11/19 15:30 Amorphous Sediment FEW PHOSPHATES (NONE SEEN) 01/11/19 15:30 Urine Bacteria 1+ /hpf (NONE SEEN) H 01/11/19 15:30 - Physical Exam Vitals and I&O: Vital Signs Temp 98.4 F 01/13/19 00:00 Pulse 66 01/13/19 07:22 Resp 18 01/13/19 08:00 BP 145/88 01/13/19 00:00 Pulse Ox 98 01/13/19 07:22 Intake & Output 01/12/19 01/13/19 01/13/19 18:59 06:59 18:59 Intake Total 615 Output Total 1001 Balance -386 Weight (lbs) 104.78 kg Intake: Oral 615 Output: Urine 1000 Stool 1 Other: Weight Source Bedscale Active Medications: Current Medications Acetaminophen/Hydrocodone Bitart ([place] 5mg/325mg) 1 tab PO Q4H PRN PRN Reason: MODERATE PAIN Stop: 03/12/19 22:25 Last Admin: 01/13/19 06:11 Dose: 1 tab Betamethasone/Clotrimazole (Lotrisone Cream) 1 appl TP BID SILVER Stop: 03/13/19 16:59 Last Admin: 01/13/19 08:18 Dose: Not Given Pantoprazole Sodium (Protonix) 40 mg IVP DAILY SILVER Stop: 03/13/19 08:59 Last Admin: 01/13/19 08:18 Dose: 40 mg Polyethylene Glycol (Miralax) 17 gm PO DAILY SILVER Stop: 03/13/19 13:14 Last Admin: 01/13/19 08:18 Dose: Not Given Sennosides (Senna Plus 50 Mg-8.6 Mg) 1 tab PO BID SILVER Stop: 03/13/19 16:59 Last Admin: 01/13/19 08:18 Dose: Not Given - Procedures Procedures: Procedures Procedure Code Date COLONOSCOPY AND BIOPSY 97603 09/16/17 EXCISION OF RECTUM, ENDO, DIAGN [id number] 09/16/17 Assessment/Plan - Assessment Assessment: 73 YO MALE WITH ABD PAIN LIKELY DUE TO CONSTIPATION MAY HAVE COMPONENT OF OPIOID INDUCED CONSTIPATION REFUSED COLONOSCOPY AND UNDERSTANDS THE RAMIFICATIONS -D/W PT WITH UKRAINIAN TRANSLATION 1.CONT LAXATIVES 2.F/U PCP 3.CONSIDER OUTPATIENT SCR TEST FOR COLON CA WITH PCP SUCH COLO, FIT, CT COLO ETC.
--- NOTE | 2019-01-13 14:36 | Consultation ---
DATE OF CONSULTATION: 01/11/2019 HISTORY AND PHYSICAL: This 73-year-old morbidly obese male patient, with a known history of stroke was brought to the hospital complaining of abdominal pain. The patient denies any nausea, vomiting. The patient had a CT scan of the abdomen and pelvis with no evidence of acute abnormalities except diverticulosis. PAST MEDICAL HISTORY: CKD, hypertension, congestive heart failure, BPH, obesity, diabetes mellitus type 2, anxiety disorder, CVA with right hemiplegia, left facial palsy. ALLERGIES: PENICILLIN. PHYSICAL EXAMINATION: VITAL SIGNS: Blood pressure 130/80, pulse 70, respirations 20. HEAD: Normocephalic. No lumps or bumps. EYES: Pupils equal, reactive to light. Fundi show AV nicking, sclerae white, conjunctivae pink. NECK: Carotid 2+. Normal upstroke. JVD flat. Thyroid not palpable. Lymph nodes not palpable. CHEST: Shows increased AP diameter. No kyphosis, scoliosis. LUNGS: Bilateral bronchovesicular breath sounds. HEART: PMI fifth intercostal space with lateral to midclavicular line. S1, S2, S3, S4, soft systolic murmur. ABDOMEN: Soft. Liver, spleen not palpable. No organomegaly. Bowel sounds active. NEUROLOGIC: CVA with right hemiplegia, left facial palsy. CLINICAL IMPRESSION: 1. Abdominal pain, etiology unknown. 2. Morbid obesity. 3. Cerebrovascular accident with late effect right hemiplegia, left facial palsy. 4. Diabetes mellitus type 2. 5. Hypertension. 6. Diverticulosis. 7. Congestive heart failure. 8. Diastolic dysfunction. 9. Chronic kidney disease. 10. Tinea cruris. 11. Benign prostatic hyperplasia. 12. Anxiety disorder. 13. Morbid obesity. 14. Possible obstructive sleep apnea. 15. Hyperlipidemia. PLAN: The patient to continue present care. Monitor the patient closely for any arrhythmias. The patient's last BNP level is 23.9. JOB# [id number]
--- NOTE | 2019-01-20 03:40 | Discharge Summary ---
DATE OF DISCHARGE: 01/13/2019 CHIEF COMPLAINT: Abdominal pain. HISTORY OF PRESENT ILLNESS AND HOSPITAL COURSE: The patient is a 73-year-old male with a past medical history of CKD, hypertension, CHF, BPH, obesity, diabetes mellitus type 2, brought from the nursing facility for abdominal pains for last few months. He denies any nausea, vomiting, diarrhea or constipation. CT scan of the abdomen and pelvis showed no evidence of any acute abnormality except diverticulosis. I was informed by ER physician, Dr. Sparks. The patient had UTI, so the patient was admitted with a diagnosis of urinary tract infection. However his urinalysis was noncontributory. For the abdominal pain Dr. Arroyo was called. ____ was given and the patient felt better. The patient was stable at the time of discharge and discharged to nursing facility on 01/13/2018. Consultations called Dr. Jeremy Amaro. DISCHARGE CONDITION: Stable. DISCHARGE DISPOSITION: [facility] under Dr. Avendano. DISCHARGE DIAGNOSES: 1. Abdominal pain. 2. Obesity. 3. Diabetes mellitus type 2. 4. Hypertension. 5. History of diverticulitis. 6. Congestive heart failure. 7. Chronic kidney disease. 8. Tinea cruris. 9. Benign prostatic hypertrophy. 10. Anxiety disorder. 11. Constipation. 12. BPH. 13. Morbid obesity. 14. Possible obstructive sleep apnea. 15. Hyperlipidemia. 16. Anxiety disorder. DISCHARGE PLAN: Continue same medication and follow up with the GI. JOB# [id number]
== END 2019-01-13 15:11 | DRG 720 ==
LOC: ER 15:32 → MSI 18:29
PROVIDERS: ADMIT Internal Medicine Infectious Disease; ATTEND Internal Medicine Infectious Disease
DX: A41.9 Sepsis, unspecified organism (principal); E11.22 Type 2 diabetes mellitus with diabetic chronic kidney disease; I50.9 Heart failure, unspecified; I13.0 Hypertensive heart and chronic kidney disease with heart failure and stage 1 through stage 4 chronic kidney disease, or unspecified chronic kidney disease; E66.01 Morbid (severe) obesity due to excess calories; K57.32 Diverticulitis of large intestine without perforation or abscess without bleeding; B35.6 Tinea cruris; R56.9 Unspecified convulsions; E78.5 Hyperlipidemia, unspecified; F41.9 Anxiety disorder, unspecified; N18.9 Chronic kidney disease, unspecified; N40.0 Benign prostatic hyperplasia without lower urinary tract symptoms; I25.10 Atherosclerotic heart disease of native coronary artery without angina pectoris; J44.9 Chronic obstructive pulmonary disease, unspecified; K21.9 Gastro-esophageal reflux disease without esophagitis; F17.210 Nicotine dependence, cigarettes, uncomplicated; K40.90 Unilateral inguinal hernia, without obstruction or gangrene, not specified as recurrent; K52.9 Noninfective gastroenteritis and colitis, unspecified; N39.0 Urinary tract infection, site not specified; G51.0 Bell's palsy; K59.03 Drug induced constipation; T40.2X5A Adverse effect of other opioids, initial encounter; Y92.89 Other specified places as the place of occurrence of the external cause; Z88.0 Allergy status to penicillin; I69.351 Hemiplegia and hemiparesis following cerebral infarction affecting right dominant side; Z68.42 Body mass index [BMI] 45.0-49.9, adult
CPT/HCPCS: 36415-UA; 71045-TC; 80053-TC; 80061-TC; 81001-TC; 82150-TC; 82550-TC; 83690-TC; 83880-TC; 84484-TC; 85025-TC; 85610-TC; 87086-90; 93005; 94760; C9113; J1956; J7030; Z7610